=== PATIENT | female | born 1980 | race Caucasian/White ===

== ENCOUNTER → 2016-11-18 | Outpatient (CLI) | payer BC ==
[~2016-11-18] MED LIST: SODIUM CHLORIDE 0.9% 250 ML in EMPTY BAG 1 BAG IV PRN; SODIUM CHLORIDE 0.9% 500 ML in EMPTY BAG 1 BAG IV PRN
[2016-11-18 10:13] VITALS: TEMP 98.5
[2016-11-18 10:45] VITALS: RESP 16
[2016-11-18 11:33] VITALS: BP 118/70; PULSE 79
== END | disposition home or self-care (01) ==
LOC: PROCWHC3 10:00
PROVIDERS: ATTEND Internal Medicine Gastroenterology
DX: K50.10 Crohn's disease of large intestine without complications (principal)
CPT/HCPCS: 96361; 96413; 96415; J1745

== ENCOUNTER → 2016-11-25 | Outpatient (CLI) | payer BC ==
[2016-11-25 15:41] LABS: Anion Gap 9 mmol/L; Blood Urea Nitrogen 11 mg/dL (7-17); Carbon Dioxide 28 mmol/L (22-30); Chloride 103 mmol/L (98-107); Glucose 107 mg/dL (74-99); Non-African American GFR(MDRD) >60 (>60 ml/min/1.73 sqM); Potassium 4.2 mmol/L (3.5-5.1); Sodium 140 mmol/L (137-145)
== END | disposition home or self-care (01) ==
LOC: LABPAT 14:48
PROVIDERS: ATTEND Obstetrics & Gynecology
DX: Z01.812 Encounter for preprocedural laboratory examination (principal); N94.6 Dysmenorrhea, unspecified; N92.0 Excessive and frequent menstruation with regular cycle
CPT/HCPCS: 80051; 82565; 82947; 84520; 86850; 86900; 86901; 87086

== ENCOUNTER 2016-12-02 07:37 | Observation (INO) | payer BC ==
[2016-11-24 12:27] VITALS: BMI 33.0
[~2016-12-02 07:37] MED LIST changes: +DEXAMETHASONE SOD PHOSPHATE 10 MG/ML 1 ML VIAL IV ONE; +HYDROmorphone 1 MG/ML 1 ML SYRINGE IVP PRN; +LACTATED RINGERS 1,000 ML IV SCH; +MIDAZOLAM 2 MG/2 ML VIAL IV PRN; +ONDANSETRON 4 MG/2 ML VIAL IVP ONE; +SCOPOLAMINE 1.5MG/72HR PATCH TRANSDERM ONE; -SODIUM CHLORIDE 0.9% 250 ML in EMPTY BAG 1 BAG IV PRN; -SODIUM CHLORIDE 0.9% 500 ML in EMPTY BAG 1 BAG IV PRN; +ceFAZolin 2 GM in SODIUM CHLORIDE 0.9% 100 ML IVPB ONE
[2016-12-02] MEDS ORDERED: LIDOCAINE 1% 20 ML VIAL (10MG/ML) FOR IV START SQ ONE (08:02)
[2016-12-02 08:25] LABS: Glucose,Whole Blood 86 mg/dL (75-99)
[2016-12-02] MEDS ORDERED: fentaNYL (PF) 50 MCG/ML 2 ML AMP ONE (09:01)
[2016-12-02] MEDS ORDERED: MIDAZOLAM 2 MG/2 ML VIAL ONE (09:01)
[2016-12-02] MEDS ORDERED: MORPHINE SULFATE (PF) 0.3 MG/0.3 ML SYR ONE (09:01)
[2016-12-02] MEDS ORDERED: KETOROLAC 30 MG/ML 1 ML VIAL ONE (09:01)
[2016-12-02] MEDS ORDERED: PROPOFOL 10 MG/ML 20 ML VIAL IV ONE (09:01)
[2016-12-02] MEDS ORDERED: NALOXONE 0.4 MG/ML 1 ML VIAL IV PRN (09:23)
[2016-12-02] MEDS ORDERED: NALBUPHINE 10 MG/ML AMPUL IV PRN (09:23)
[2016-12-02] MEDS ORDERED: MORPHINE SULFATE 4 MG/ML SYRINGE IVP PRN (09:23)
[2016-12-02] MEDS ORDERED: ONDANSETRON 4 MG/2 ML VIAL IVP PRN ×2 (09:23→10:01)
[2016-12-02] MEDS ORDERED: BACITRACIN 500 UNIT/GM OINT 28.4 GM TUBE TOPICAL ONE (09:28)
[2016-12-02] MEDS ORDERED: VASOPRESSIN 20 UNIT/ML 1 ML VIAL SQ ONE (09:28)
[2016-12-02] MEDS ORDERED: LACTATED RINGERS 1,000 ML IV ONE (09:36)
[2016-12-02] MEDS ORDERED: ZOLPIDEM 5 MG TAB PO PRN (10:01)
[2016-12-02] MEDS ORDERED: IBUPROFEN 600 MG TAB PO PRN (10:01)
[2016-12-02] MEDS ORDERED: Acetaminophen-Codeine 300-30mg TAB PO PRN (10:01)
[2016-12-02] MEDS ORDERED: ACETAMINOPHEN IV (For NPO) 1,000 MG in EMPTY BAG 1 BAG IVPB ONE (10:01)
[2016-12-02] MEDS ORDERED: SIMETHICONE 80 MG CHEWABLE PO PRN (10:01)
[2016-12-02] MEDS ORDERED: METOCLOPRAMIDE 5 MG/ML 2 ML VIAL IVP PRN (10:01)
[2016-12-02] MEDS ORDERED: KETOROLAC 30 MG/ML 1 ML VIAL IVP PRN (10:01)
[2016-12-02] MEDS ORDERED: diphenhydrAMINE 50 MG/ML 1 ML VIAL IVP PRN (10:01)
--- NOTE | 2016-12-02 10:01 | P.OP ---
Date of Procedure: 12/02/16 Preoperative Diagnosis: Severe dysmenorrhea, polymenorrhea, large intrauterine septum Postoperative Diagnosis: Normal-appearing ovaries bilaterally Procedure(s) Performed: Vaginal hysterectomy Anesthesia: spinal Surgeon: Zahira Palacio Linux Admin Engineer #1: Ivette Stallworth Estimated Blood Loss (ml): 25 IV fluids (ml): 1,000 Urine output (ml): 250 Pathology: other (Cervix and uterus) Condition: stable Disposition: PACU Description of Procedure: Patient is brought to the operating suite where a spinal with Duramorph is given per Dr. hCew. She's placed in the dorsal lithotomy position. The cervix vagina perineum and lower abdomen are all prepped and draped in the usual sterile fashion. Antibiotics were given. Urine hCG is negative. The full timeout is performed to assure proper patient and procedural identification. Bladder is drained for approximately 250 mL of clear yellow urine. Weighted speculum was placed into the vagina. Anterior lip of the cervix is grasped with a double-tooth tenaculum. Cervix is injected circumferentially with a dilute Pitressin solution, 10 mL total used. A curyung blade scalpel is used and the mucosa is incised with V like positioning in the posterior aspect. A sponge rolled finger is used to sweep the mucosa from the underlying fascial plane. Peritoneum is entered at 6:00 and suture tied with 2- 0 Vicryl, the large billed speculum was then placed into the peritoneal cavity. Excellent to the case. At all times the bladder swept well from the operative field to avoid bladder and/or ureteral injury. The right uterosacral cardinal ligament complex is identified, clamped and held laterally with a 0 Vicryl suture. The same procedure is carried out on the contralateral uterosacral cardinal ligament complex. Uterine vasculature is skeletonized, clamped cut and suture ligated bilaterally. 2 additional pedicles are taken superior to the vessels. Anterior peritoneum was entered. The uterus is "walked out" posteriorly. The uterus is removed with Astrid clamps across the final pedicles. The pedicles are tied with 0 Vicryl, flashed, retied for excellent hemostasis. Bilateral ovaries are inspected with a sponge stick and noted to be within normal limits to inspection, and therefore left in situ per the patient's wishes. The 2-0 Vicryl suture at 6:00 is then brought around in a pursestring fashion to close the peritoneum. The held uterosacral cardinal ligament complex cc are taken across to incorporate the opposite complex as well as the mucosa. The vaginal cuff is closed with several additional [id number] sutures. The vaginal cuff is clean and dry. Rosenthal catheter is reintroduced, urine is clear. All sponge needle and enhancement counts are correct at the end of this procedure. Patient is brought back to the recovery room in very good condition with stable vital signs including a blood pressure of 101/55, pulse 81. Competitions: None
[2016-12-02] MEDS: diphenhydrAMINE 50 MG/ML 1 ML VIAL IVP PRN ×2 (10:23→20:14)
[2016-12-02] MEDS: KETOROLAC 30 MG/ML 1 ML VIAL IVP PRN ×3 (11:44→23:37)
[2016-12-02] MEDS: SENNOSIDES-DOCUSATE SODIUM 1 EACH TAB PO SCH (20:00)
--- NOTE | 2016-12-03 08:08 | P.DS ---
Providers Date of admission: 12/03/16 00:53 Expected date of discharge: 12/03/16 Attending physician: Zahira Palacio Primary care physician: [facility] Course: This is a 36-year-old white female 2 para 2002 status post tubal ligation who presented with a long-standing history of dysmenorrhea and polymenorrhea. A large intrauterine septum was noted by another physician, making ablation of the endometrial cavity not possible. After thorough discussion she elected to proceed with vaginal hysterectomy. Please see my dictated history and physical for details. Patient was admitted and underwent vaginal hysterectomy without issue. Estimated blood loss recorded at 25 mL's. Ovaries appeared normal to inspection and therefore were left in situ per her wishes. Please see my dictated operative note for details. This morning the patient is doing very well. Rosenthal catheter as well as vaginal packing had been removed. She is voiding, and bleeding, passing flatus, and having minimal pain. Vaginal cough appears clean and dry on inspection of the perineal pad. Pain is well managed with ibuprofen products. Patient is being discharged home this morning in very good condition. She will follow-up with me in the office in 2 weeks. I have reminded her no intercourse , tampons or douching. She will use [id number] ibuprofen products, 200 mg pills, 3 every 6 hours as needed for pain. I have asked her to call me with any copious or bright red vaginal bleeding, with any difficulties with urination or bowel movements, with any pain not alleviated by [id number] products, or indeed with any concerns. Patient Condition at Discharge: Good Plan - Discharge Summary Discharge Medication List diphenhydrAMINE [Benadryl] 25 mg PO HS 03/11/16 [History] Multivitamins, Thera [Multivitamin] 1 tab PO DAILY 04/23/16 [History] Ferrous Sulfate [Feosol] 325 mg PO BID 07/02/16 [History] inFLIXimab [Remicade] 500 mg IVPB DIRECTED 07/02/16 [History] Follow up Appointment(s)/Referral(s): Zahira Palacio MD [STAFF PHYSICIAN] - 2 Weeks Patient Instructions/Handouts: *Surgery [facility] - Scopalamine Patch Instructions Discharge Disposition: HOME SELF-CARE
[2016-12-03] MEDS: KETOROLAC 30 MG/ML 1 ML VIAL IVP PRN (08:32)
--- NOTE | 2016-12-03 08:32 | P.PN ---
Progress Note - Text Date: 12/03/2016 Time: 708 The patient is status post, vaginal hysterectomy Vital signs stable VAS:0-10 Patient has no complaints of pain. The patient incurred some minimal itching yesterday, this itching is now subsiding. Pain meds to be managed by service.
[2016-12-03 08:41] VITALS: BP 129/69; PULSE 89; RESP 16; TEMP 98.3
[2016-12-03] MEDS ORDERED: ACETAMINOPHEN TAB 325 MG TAB PO PRN (10:03)
[2016-12-03] MEDS: SENNOSIDES-DOCUSATE SODIUM 1 EACH TAB PO SCH (10:21)
== END 2016-12-03 10:00 | disposition home or self-care (01) ==
LOC: OR 07:37 → 4FBP 10:05 → OR 12-03 00:53 → 4FBP 12-03 00:53
PROVIDERS: ADMIT Obstetrics & Gynecology; ATTEND Obstetrics & Gynecology
DX: N92.0 Excessive and frequent menstruation with regular cycle (principal); N94.6 Dysmenorrhea, unspecified; N72 Inflammatory disease of cervix uteri; N87.9 Dysplasia of cervix uteri, unspecified; D25.2 Subserosal leiomyoma of uterus
CPT/HCPCS: 81025; 86900; 86901; 86850; 88307; 58260; G0378; J2250; J1200; J1100; J0690; J2405; J2274; J3010; J1885 ×2; J0131; J2704; 96374

== ENCOUNTER → 2016-12-30 | Outpatient (CLI) | payer BC ==
[~2016-12-30] MED LIST changes: -DEXAMETHASONE SOD PHOSPHATE 10 MG/ML 1 ML VIAL IV ONE; -HYDROmorphone 1 MG/ML 1 ML SYRINGE IVP PRN; -LACTATED RINGERS 1,000 ML IV SCH; -MIDAZOLAM 2 MG/2 ML VIAL IV PRN; -ONDANSETRON 4 MG/2 ML VIAL IVP ONE; -SCOPOLAMINE 1.5MG/72HR PATCH TRANSDERM ONE; +SODIUM CHLORIDE 0.9% 250 ML in EMPTY BAG 1 BAG IV PRN; +SODIUM CHLORIDE 0.9% 500 ML in EMPTY BAG 1 BAG IV PRN; -ceFAZolin 2 GM in SODIUM CHLORIDE 0.9% 100 ML IVPB ONE
[2016-12-30 09:44] VITALS: TEMP 98.2
[2016-12-30 10:42] LABS: Basophils % (A) 1 %; CH 28.3; CHCM 32.3; Eosinophils # (A) 0.1 k/uL (0-0.7); Eosinophils % (A) 1 %; HCT 45.4 % (34.0-46.0); HDW 2.36; HGB 14.6 gm/dL (11.4-16.0); Luc # (Auto) 0.18; Luc % (Auto) 3; Lymphocytes # (A) 1.8 k/uL (1.0-4.8); Lymphocytes % (A) 26 %; MCH 28.3 pg (25.0-35.0); MCHC 32.2 g/dL (31.0-37.0); MCV 87.9 fL (80.0-100.0); Mean Platelet Volume 7.1; Monocytes # (A) 0.3 k/uL (0-1.0); Monocytes % (A) 4 %; Neutrophils # (A) 4.6 k/uL (1.3-7.7); Neutrophils % (A) 65 %; RBC 5.17 m/uL (3.80-5.40); RDW 13.3 % (11.5-15.5)
[2016-12-30 11:10] LABS: ALT 27 U/L (9-52); AST 25 U/L (14-36); Alkaline Phosphatase 62 U/L (38-126); Anion Gap 12 mmol/L; Blood Urea Nitrogen 10 mg/dL (7-17); Calcium 9.4 mg/dL (8.4-10.2); Carbon Dioxide 24 mmol/L (22-30); Chloride 105 mmol/L (98-107); Glucose 85 mg/dL (74-99); Non-African American GFR(MDRD) >60 (>60 ml/min/1.73 sqM); Potassium 4.5 mmol/L (3.5-5.1); Sodium 141 mmol/L (137-145); Total Bilirubin 0.6 mg/dL (0.2-1.3); Total Protein 7.6 g/dL (6.3-8.2)
[2016-12-30 11:39] VITALS: BP 118/75; PULSE 74; RESP 18
[2016-12-31 07:41] LABS: Mis test requested (Blood) Dilute Russel VVT
== END | disposition home or self-care (01) ==
LOC: PROCWHC3 09:14
PROVIDERS: ATTEND Internal Medicine Gastroenterology
DX: K50.10 Crohn's disease of large intestine without complications (principal); D68.62 Lupus anticoagulant syndrome; D50.9 Iron deficiency anemia, unspecified
CPT/HCPCS: 80053; 85025; 85730; 85613; 88342; 96361; 96413; 96415; J1745

== ENCOUNTER → 2017-02-03 | Outpatient (CLI) | payer BC ==
--- NOTE | 2017-02-04 07:36 | MM ---
Reason for exam: screening (asymptomatic). Baseline mammogram. Physical Findings: Nurse did not find any significant physical abnormalities on exam. MG 3D Screening Mammo W/Cad Bilateral CC and MLO view(s) were taken. The breast tissue is heterogeneously dense. This may lower the sensitivity of mammography. Finding #1: There is a 5 mm equal density (isodense), obscured oval mass in the upper quadrant of the left breast. Finding #2: There are typically benign calcifications. These results were verbally communicated with the patient and result sheet given to the patient on 02/03/17. ASSESSMENT: Incomplete: need additional imaging evaluation, BI-RAD 0 RECOMMENDATION: Ultrasound of the left breast.
--- NOTE | 2017-02-04 07:37 | USB ---
Reason for exam: additional evaluation requested from abnormal screening. US Breast Workup Limited LT Left breast ultrasound demonstrates no cystic or solid lesion seen. These results were verbally communicated with the patient and result sheet given to the patient on 02/03/17. ASSESSMENT: Negative, BI-RAD 1 RECOMMENDATION: Routine screening mammogram of both breasts at age 38.
== END | disposition home or self-care (01) ==
LOC: RADMAMWWP 15:01
PROVIDERS: ATTEND Obstetrics & Gynecology
DX: Z12.31 Encounter for screening mammogram for malignant neoplasm of breast (principal)
CPT/HCPCS: 77063; 76642; G0202

== ENCOUNTER → 2017-02-10 | Outpatient (CLI) | payer BC ==
[2017-02-10 09:12] VITALS: RESP 16
[2017-02-10 09:52] LABS: Basophils % (A) 1 %; CH 28.8; CHCM 32.8; Eosinophils # (A) 0.1 k/uL (0-0.7); Eosinophils % (A) 1 %; HCT 43.5 % (34.0-46.0); HDW 2.34; HGB 14.1 gm/dL (11.4-16.0); Luc # (Auto) 0.12; Luc % (Auto) 2; Lymphocytes # (A) 1.7 k/uL (1.0-4.8); Lymphocytes % (A) 23 %; MCH 28.5 pg (25.0-35.0); MCHC 32.4 g/dL (31.0-37.0); Mean Platelet Volume 7.2; Monocytes # (A) 0.3 k/uL (0-1.0); Monocytes % (A) 4 %; Neutrophils # (A) 5.2 k/uL (1.3-7.7); Neutrophils % (A) 70 %; RBC 4.94 m/uL (3.80-5.40); RDW 13.5 % (11.5-15.5); WBC 7.4 k/uL (3.8-10.6); WBC (Perox) 7.35
[2017-02-10 10:36] LABS: ALT 30 U/L (9-52); AST 31 U/L (14-36); Alkaline Phosphatase 53 U/L (38-126); Anion Gap 9 mmol/L; Blood Urea Nitrogen 10 mg/dL (7-17); Calcium 9.5 mg/dL (8.4-10.2); Carbon Dioxide 24 mmol/L (22-30); Chloride 107 mmol/L (98-107); Glucose 109 mg/dL (74-99); Non-African American GFR(MDRD) >60 (>60 ml/min/1.73 sqM); Potassium 4.4 mmol/L (3.5-5.1); Sodium 140 mmol/L (137-145); Total Bilirubin 0.6 mg/dL (0.2-1.3); Total Protein 7.1 g/dL (6.3-8.2)
[2017-02-10 11:15] VITALS: TEMP 98.2
[2017-02-10 11:18] VITALS: BP 114/76; PULSE 76
== END | disposition home or self-care (01) ==
LOC: PROCWHC3 09:05
PROVIDERS: ATTEND Internal Medicine Gastroenterology
DX: K50.10 Crohn's disease of large intestine without complications (principal)
CPT/HCPCS: 80053; 85025; 96361; 96413; 96415; J1745

== ENCOUNTER → 2017-03-24 | Outpatient (CLI) | payer BC ==
[2017-03-24 09:18] VITALS: RESP 16; TEMP 98.4
[2017-03-24 10:00] LABS: Basophils # (A) 0.1 k/uL (0-0.2); Basophils % (A) 1 %; CH 29.5; CHCM 33.7; Eosinophils # (A) 0.1 k/uL (0-0.7); Eosinophils % (A) 2 %; HCT 43.1 % (34.0-46.0); HGB 14.4 gm/dL (11.4-16.0); Luc # (Auto) 0.12; Luc % (Auto) 2; Lymphocytes # (A) 1.8 k/uL (1.0-4.8); Lymphocytes % (A) 26 %; MCH 29.3 pg (25.0-35.0); MCHC 33.4 g/dL (31.0-37.0); MCV 87.7 fL (80.0-100.0); Mean Platelet Volume 7.6; Monocytes # (A) 0.4 k/uL (0-1.0); Monocytes % (A) 5 %; Neutrophils # (A) 4.2 k/uL (1.3-7.7); Neutrophils % (A) 64 %; RBC 4.91 m/uL (3.80-5.40); RDW 13.3 % (11.5-15.5); WBC 6.6 k/uL (3.8-10.6); WBC (Perox) 6.49
[2017-03-24 10:52] VITALS: BP 131/78; PULSE 71
[2017-03-24 12:10] LABS: ALT 41 U/L (9-52); AST 30 U/L (14-36); Alkaline Phosphatase 65 U/L (38-126); Anion Gap 9 mmol/L; Blood Urea Nitrogen 14 mg/dL (7-17); Calcium 9.4 mg/dL (8.4-10.2); Carbon Dioxide 25 mmol/L (22-30); Chloride 106 mmol/L (98-107); Glucose 84 mg/dL (74-99); Non-African American GFR(MDRD) >60 (>60 ml/min/1.73 sqM); Potassium 4.4 mmol/L (3.5-5.1); Sodium 140 mmol/L (137-145); Total Bilirubin 0.5 mg/dL (0.2-1.3); Total Protein 7.6 g/dL (6.3-8.2)
== END | disposition home or self-care (01) ==
LOC: PROCWHC3 09:00
PROVIDERS: ATTEND Internal Medicine Gastroenterology
DX: K50.10 Crohn's disease of large intestine without complications (principal)
CPT/HCPCS: 80053; 85025; 96413; 96415; 36415; J1745

== ENCOUNTER 2017-04-20 17:19 | Emergency (ER) | payer BC ==
[2017-04-20 17:45] VITALS: BP 125/80; PULSE 67; RESP 20; TEMP 98.5
--- NOTE | 2017-04-20 18:23 | ED ---
Extremity Problem HPI - General Chief complaint: Extremity Problem,Nontraumatic Stated complaint: Leg Pain Time Seen by Provider: 04/20/17 18:10 Source: patient, RN notes reviewed Mode of arrival: ambulatory Limitations: no limitations - History of Present Illness Initial comments: This is a 36-year-old female presents emergency Department chief complaint right calf pain. She states she's had intermittent pain and cramping over the last 1-2 weeks. Patient states she is concern is she has been told that she is a high-risk for blood clot secondary to Remicade. Patient denies any chest pain , shortness breath, headache or dizziness. She states her right leg is slightly swollen but denies any redness or any trauma. Patient states when she walks she has increased pain. - Related Data Home Medications Medication Instructions Recorded Confirmed diphenhydrAMINE [Benadryl] 25 mg PO HS 03/11/16 04/20/17 Multivitamins, Thera [Multivitamin 1 tab PO DAILY 04/23/16 04/20/17 (formulary)] Ferrous Sulfate [Feosol] 325 mg PO DAILY 07/02/16 04/20/17 inFLIXimab [Remicade] 500 mg IVPB Q42D 07/02/16 04/20/17 Allergies Allergy/AdvReac Type Severity Reaction Status Date / Time latex Allergy Rash/Hives Verified 04/20/17 18:38 Review of Systems ROS Statement: Those systems with pertinent positive or pertinent negative responses have been documented in the HPI. ROS Other: All systems not noted in ROS Statement are negative. Past Medical History Additional Past Medical History / Comment(s): chrohn's disease/ hypogylcemia gestational dm History of Any Multi-Drug Resistant Organisms: None Reported Past Surgical History: Hysterectomy, Tubal Ligation Additional Past Surgical History / Comment(s): colonoscopy Past Anesthesia/Blood Transfusion Reactions: No Reported Reaction Additional Past Anesthesia/Blood Transfusion Reaction / Comment(s): took a while to come out Past Psychological History: No Psychological Hx Reported Smoking Status: Never smoker Past Alcohol Use History: None Reported Past Drug Use History: None Reported - Past Family History Mother Family Medical History: No Reported History General Exam Limitations: no limitations General appearance: alert, in no apparent distress Respiratory exam: Present: normal lung sounds bilaterally. Absent: respiratory distress, wheezes, rales, rhonchi, stridor Cardiovascular Exam: Present: regular rate, normal rhythm, normal heart sounds. Absent: systolic murmur, diastolic murmur, rubs, gallop, clicks Extremities exam: Present: other (Right calf there is tenderness with palpation over the mid calf with no erythema. There is mild swelling pedal pulses are equal bilaterally there is equal color and warmth of the lower extremities shows full range of motion of her ankle and knee) Neurological exam: Present: reflexes normal. Absent: motor sensory deficit Skin exam: Present: warm, dry, intact, normal color. Absent: rash Course Vital Signs 04/20/17 17:42 Temperature 98.5 F Pulse Rate 67 Respiratory 20 Rate Blood Pressure 125/80 O2 Sat by Pulse 98 Oximetry Medical Decision Making - Medical Decision Making 28-year-old female presented for right leg pain. There is no acute DVT. Patient we discharged at this time. Disposition Clinical Impression: Right calf pain Disposition: HOME SELF-CARE Condition: Stable Instructions: Leg Pain (ED) Additional Instructions: Please return to the Emergency Department if symptoms worsen or any other concerns. Referrals: Kayleen Ferrer DO [Primary Care Provider] - 1-2 days Time of Disposition: 19:52
--- NOTE | 2017-04-20 19:41 | US ---
EXAMINATION TYPE: US venous doppler duplex LE RT DATE OF EXAM: 04/20/2017 7:00 PM COMPARISON: NONE CLINICAL HISTORY: Pain. SIDE PERFORMED: Right TECHNIQUE: The lower extremity deep venous system is examined utilizing real time linear array sonog darren with graded compression, doppler sonography and color-flow sonography. VESSELS IMAGED: External Iliac Vein (EIV) Common Femoral Vein Deep Femoral Vein Greater Saphenous Vein * Femoral Vein Popliteal Vein Small Saphenous Vein * Proximal Calf Veins (* superficial vessels) Right Leg: Negative for DVT IMPRESSION: NEGATIVE FOR DVT, RIGHT LOWER EXTREMITY VENOUS DOPPLER ULTRASOUND.
== END 2017-04-20 20:08 | disposition home or self-care (01) ==
LOC: EC 17:19
DX: M79.661 Pain in right lower leg (principal); M79.89 Other specified soft tissue disorders; Z79.899 Other long term (current) drug therapy; Z91.040 Latex allergy status
CPT/HCPCS: 99283

== ENCOUNTER → 2017-05-05 | Outpatient (CLI) | payer BC ==
[2017-05-05 09:22] VITALS: TEMP 98.4
[2017-05-05 10:22] LABS: Basophils % (A) 0 %; CH 29.1; CHCM 33.2; Eosinophils # (A) 0.1 k/uL (0-0.7); Eosinophils % (A) 1 %; HCT 44.2 % (34.0-46.0); HDW 2.39; HGB 15.7 gm/dL (11.4-16.0); Luc # (Auto) 0.15; Luc % (Auto) 2; Lymphocytes # (A) 1.8 k/uL (1.0-4.8); Lymphocytes % (A) 25 %; MCH 31.2 pg (25.0-35.0); MCHC 35.4 g/dL (31.0-37.0); MCV 88.2 fL (80.0-100.0); Mean Platelet Volume 7.7; Monocytes # (A) 0.2 k/uL (0-1.0); Monocytes % (A) 3 %; Neutrophils # (A) 4.9 k/uL (1.3-7.7); Neutrophils % (A) 69 %; RBC 5.01 m/uL (3.80-5.40); RDW 12.8 % (11.5-15.5); WBC 7.1 k/uL (3.8-10.6); WBC (Perox) 7.17
[2017-05-05 10:29] LABS: ALT 32 U/L (9-52); AST 24 U/L (14-36); Alkaline Phosphatase 65 U/L (38-126); Anion Gap 10 mmol/L; Blood Urea Nitrogen 10 mg/dL (7-17); Calcium 9.1 mg/dL (8.4-10.2); Carbon Dioxide 21 mmol/L (22-30); Chloride 109 mmol/L (98-107); Glucose 118 mg/dL (74-99); Non-African American GFR(MDRD) >60 (>60 ml/min/1.73 sqM); Potassium 4.4 mmol/L (3.5-5.1); Sodium 140 mmol/L (137-145); Total Bilirubin 0.7 mg/dL (0.2-1.3); Total Protein 7.2 g/dL (6.3-8.2)
[2017-05-05 10:59] VITALS: BP 103/64; PULSE 65; RESP 12
== END ==
LOC: PROCWHC3 08:57
PROVIDERS: ATTEND Internal Medicine Gastroenterology
DX: Z51.11 Encounter for antineoplastic chemotherapy (principal); K50.10 Crohn's disease of large intestine without complications
CPT/HCPCS: 80053; 85025; 96413; 96415; 36415; J1745

== ENCOUNTER → 2017-06-16 | Outpatient (CLI) | payer BC ==
[2017-06-16 09:19] VITALS: TEMP 98.4
[2017-06-16 09:31] LABS: CH 29.1; CHCM 32.8; HCT 43.5 % (34.0-46.0); HDW 2.37; HGB 14.5 gm/dL (11.4-16.0); MCH 29.6 pg (25.0-35.0); MCHC 33.2 g/dL (31.0-37.0); MCV 89.2 fL (80.0-100.0); Mean Platelet Volume 7.1; RBC 4.88 m/uL (3.80-5.40); RDW 12.5 % (11.5-15.5); WBC 7.9 k/uL (3.8-10.6)
[2017-06-16 10:14] LABS: ALT 42 U/L (9-52); AST 29 U/L (14-36); Alkaline Phosphatase 58 U/L (38-126); Anion Gap 8 mmol/L; Blood Urea Nitrogen 8 mg/dL (7-17); Carbon Dioxide 22 mmol/L (22-30); Chloride 108 mmol/L (98-107); Glucose 82 mg/dL (74-99); Non-African American GFR(MDRD) >60 (>60 ml/min/1.73 sqM); Potassium 4.7 mmol/L (3.5-5.1); Sodium 138 mmol/L (137-145); Total Bilirubin 0.7 mg/dL (0.2-1.3); Total Protein 7.1 g/dL (6.3-8.2)
[2017-06-16 10:22] VITALS: RESP 18
[2017-06-16 10:49] VITALS: BP 101/46; PULSE 67
== END | disposition home or self-care (01) ==
LOC: PROCWHC3 09:02
PROVIDERS: ATTEND Internal Medicine Gastroenterology
DX: K50.10 Crohn's disease of large intestine without complications (principal)
CPT/HCPCS: 80053; 85027; 96413; 96415; 36415; J1745

== ENCOUNTER → 2017-07-28 | Outpatient (CLI) | payer BC ==
[~2017-07-28] MED LIST changes: -SODIUM CHLORIDE 0.9% 250 ML in EMPTY BAG 1 BAG IV PRN
[2017-07-28 09:54] VITALS: RESP 16; TEMP 98.2
[2017-07-28 12:14] VITALS: BP 130/94; PULSE 82
== END | disposition home or self-care (01) ==
LOC: PROCWHC3 09:23
PROVIDERS: ATTEND Internal Medicine Gastroenterology
DX: K50.10 Crohn's disease of large intestine without complications (principal)
CPT/HCPCS: 96413; 96415; J1745

== ENCOUNTER → 2017-09-15 | Outpatient (CLI) | payer BC ==
[2017-09-15 09:46] VITALS: RESP 18; TEMP 98.4
[2017-09-15 11:01] VITALS: BP 118/70; PULSE 69
== END | disposition home or self-care (01) ==
LOC: PROCWHC3 09:23
PROVIDERS: ATTEND Internal Medicine Gastroenterology
DX: Z51.11 Encounter for antineoplastic chemotherapy (principal); K50.10 Crohn's disease of large intestine without complications
CPT/HCPCS: 96413; 96415; J1745

== ENCOUNTER → 2017-11-13 | Outpatient (CLI) | payer BC ==
[2017-11-13 12:36] VITALS: RESP 16; TEMP 99.1
[2017-11-13 13:36] LABS: Basophils % (A) 0 %; Eosinophils # (A) 0.1 k/uL (0-0.7); Eosinophils % (A) 1 %; HCT 48.2 % (34.0-46.0); HGB 15.2 gm/dL (11.4-16.0); Lymphocytes # (A) 2.3 k/uL (1.0-4.8); Lymphocytes % (A) 27 %; MCH 28.7 pg (25.0-35.0); MCHC 31.5 g/dL (31.0-37.0); MCV 91.1 fL (80.0-100.0); Mean Platelet Volume 8.1; Monocytes # (A) 0.4 k/uL (0-1.0); Monocytes % (A) 4 %; Neutrophils # (A) 5.5 k/uL (1.3-7.7); Neutrophils % (A) 65 %; Platelet Count 281 k/uL (150-450); RBC 5.29 m/uL (3.80-5.40); RDW 13.7 % (11.5-15.5); WBC 8.4 k/uL (3.8-10.6)
[2017-11-13 13:40] LABS: ALT 39 U/L (9-52); AST 36 U/L (14-36); Albumin 4.4 g/dL (3.5-5.0); Alkaline Phosphatase 52 U/L (38-126); Anion Gap 9 mmol/L; Blood Urea Nitrogen 12 mg/dL (7-17); Calcium 9.8 mg/dL (8.4-10.2); Carbon Dioxide 26 mmol/L (22-30); Chloride 104 mmol/L (98-107); Glucose 108 mg/dL (74-99); Sodium 139 mmol/L (137-145); Total Bilirubin 0.6 mg/dL (0.2-1.3); Total Protein 7.8 g/dL (6.3-8.2)
[2017-11-13 13:56] LABS: Potassium 4.9 mmol/L (3.5-5.1)
[2017-11-13 14:19] VITALS: BP 129/79; PULSE 77
[2017-11-13 18:57] LABS: Iron Saturation 19.73 (12.00-45.00)
== END | disposition home or self-care (01) ==
LOC: PROCWHC3 12:18
PROVIDERS: ATTEND Internal Medicine Gastroenterology
DX: K50.10 Crohn's disease of large intestine without complications (principal)
CPT/HCPCS: 80053; 83540; 83550; 85025; 96413; 96415; J1745

== ENCOUNTER → 2018-01-14 | Outpatient (CLI) | payer BC ==
[~2018-01-14] MED LIST changes: +ACETAMINOPHEN TAB 500 MG TAB PO ONE; +INFLIXIMAB-DYYB 500 MG in SODIUM CHLORIDE 0.9% 250 ML IV ONE; +LORATADINE 10 MG TAB PO ONE
[2018-01-14 11:31] VITALS: TEMP 98.3
[2018-01-14] MEDS: INFLIXIMAB-DYYB 500 MG in SODIUM CHLORIDE 0.9% 250 ML IV ONE ×2 (11:37→11:39)
[2018-01-14 12:08] LABS: Albumin 4.1 g/dL (3.5-5.0); Anion Gap 11 mmol/L; Calcium 9.6 mg/dL (8.4-10.2); Carbon Dioxide 22 mmol/L (22-30); Chloride 107 mmol/L (98-107); Glucose 115 mg/dL (74-99); Sodium 140 mmol/L (137-145); Total Bilirubin 0.5 mg/dL (0.2-1.3); Total Protein 7.5 g/dL (6.3-8.2)
[2018-01-14 12:12] LABS: Potassium 4.7 mmol/L (3.5-5.1)
[2018-01-14 12:13] LABS: ALT 33 U/L (9-52); AST 31 U/L (14-36); Alkaline Phosphatase 71 U/L (38-126); Blood Urea Nitrogen 12 mg/dL (7-17)
[2018-01-14 12:20] LABS: Basophils % (A) 0 %; Eosinophils # (A) 0.1 k/uL (0-0.7); Eosinophils % (A) 1 %; HCT 46.5 % (34.0-46.0); HGB 15.2 gm/dL (11.4-16.0); Lymphocytes # (A) 2.2 k/uL (1.0-4.8); Lymphocytes % (A) 25 %; MCH 28.6 pg (25.0-35.0); MCHC 32.7 g/dL (31.0-37.0); MCV 87.3 fL (80.0-100.0); Mean Platelet Volume 7.7; Monocytes # (A) 0.3 k/uL (0-1.0); Monocytes % (A) 3 %; Neutrophils # (A) 6.2 k/uL (1.3-7.7); Neutrophils % (A) 69 %; Platelet Count 289 k/uL (150-450); RBC 5.32 m/uL (3.80-5.40); RDW 12.8 % (11.5-15.5); WBC 8.9 k/uL (3.8-10.6)
[2018-01-14 12:47] VITALS: BP 112/58; PULSE 78; RESP 18
[2018-01-14 19:15] LABS: Iron Saturation 23.2 (12.00-45.00)
== END | disposition home or self-care (01) ==
LOC: PROCWHC3 10:54
PROVIDERS: ATTEND Internal Medicine Gastroenterology
DX: K50.10 Crohn's disease of large intestine without complications (principal); D50.9 Iron deficiency anemia, unspecified
CPT/HCPCS: 80053; 82728; 83540; 83550; 85025; 96413; 96415; 36415; Q5102

== ENCOUNTER → 2018-02-25 | Outpatient (CLI) | payer BC ==
[2018-02-25 09:33] VITALS: TEMP 98.6
[2018-02-25 10:19] LABS: Basophils % (A) 0 %; Eosinophils # (A) 0.2 k/uL (0-0.7); Eosinophils % (A) 2 %; HCT 43.1 % (34.0-46.0); HGB 14.4 gm/dL (11.4-16.0); Lymphocytes # (A) 2.1 k/uL (1.0-4.8); Lymphocytes % (A) 29 %; MCH 28.8 pg (25.0-35.0); MCHC 33.4 g/dL (31.0-37.0); MCV 86.2 fL (80.0-100.0); Mean Platelet Volume 7.7; Monocytes # (A) 0.6 k/uL (0-1.0); Monocytes % (A) 8 %; Neutrophils # (A) 4.3 k/uL (1.3-7.7); Neutrophils % (A) 59 %; Platelet Count 271 k/uL (150-450); WBC 7.3 k/uL (3.8-10.6)
[2018-02-25 10:25] LABS: ALT 46 U/L (9-52); AST 43 U/L (14-36); Albumin 4.2 g/dL (3.5-5.0); Alkaline Phosphatase 51 U/L (38-126); Anion Gap 12 mmol/L; Blood Urea Nitrogen 12 mg/dL (7-17); Calcium 9.6 mg/dL (8.4-10.2); Carbon Dioxide 24 mmol/L (22-30); Chloride 105 mmol/L (98-107); Glucose 77 mg/dL (74-99); Sodium 141 mmol/L (137-145); Total Bilirubin 0.7 mg/dL (0.2-1.3); Total Protein 7.3 g/dL (6.3-8.2)
[2018-02-25 11:23] VITALS: BP 113/65; PULSE 76; RESP 18
== END | disposition home or self-care (01) ==
LOC: PROCWHC3 09:14
PROVIDERS: ATTEND Internal Medicine Gastroenterology
DX: K50.10 Crohn's disease of large intestine without complications (principal)
CPT/HCPCS: 80053; 85025; 96413; 96415; 36415; Q5103

== ENCOUNTER → 2018-04-08 | Outpatient (CLI) | payer BC ==
[~2018-04-08] MED LIST changes: +INFLIXIMAB-DYYB 500 MG in SODIUM CHLORIDE 0.9% 250 ML IV NR; -INFLIXIMAB-DYYB 500 MG in SODIUM CHLORIDE 0.9% 250 ML IV ONE
[2018-04-08 09:44] VITALS: TEMP 98.7
[2018-04-08 10:07] LABS: Basophils % (A) 1 %; Eosinophils # (A) 0.1 k/uL (0-0.7); Eosinophils % (A) 2 %; HCT 47.7 % (34.0-46.0); HGB 15.7 gm/dL (11.4-16.0); Lymphocytes # (A) 2.1 k/uL (1.0-4.8); Lymphocytes % (A) 26 %; MCH 29.1 pg (25.0-35.0); MCV 88.3 fL (80.0-100.0); Mean Platelet Volume 7.5; Monocytes # (A) 0.4 k/uL (0-1.0); Monocytes % (A) 5 %; Neutrophils # (A) 5.3 k/uL (1.3-7.7); Neutrophils % (A) 66 %; Platelet Count 269 k/uL (150-450); RDW 13.5 % (11.5-15.5); WBC 8.1 k/uL (3.8-10.6)
[2018-04-08 10:19] LABS: ALT 63 U/L (9-52); AST 45 U/L (14-36); Albumin 4.3 g/dL (3.5-5.0); Alkaline Phosphatase 50 U/L (38-126); Anion Gap 12 mmol/L; Blood Urea Nitrogen 12 mg/dL (7-17); Calcium 9.7 mg/dL (8.4-10.2); Carbon Dioxide 23 mmol/L (22-30); Chloride 106 mmol/L (98-107); Glucose 96 mg/dL (74-99); Sodium 141 mmol/L (137-145); Total Bilirubin 0.6 mg/dL (0.2-1.3); Total Protein 7.3 g/dL (6.3-8.2)
[2018-04-08 10:28] LABS: Potassium 4.8 mmol/L (3.5-5.1)
[2018-04-08 11:08] VITALS: PULSE 76
[2018-04-08 11:38] VITALS: BP 124/71; RESP 16
== END | disposition home or self-care (01) ==
LOC: PROCWHC3 09:24
PROVIDERS: ATTEND Internal Medicine Gastroenterology
DX: K50.10 Crohn's disease of large intestine without complications (principal)
CPT/HCPCS: 80053; 85025; 96413; 96415; Q5103

== ENCOUNTER → 2018-05-24 | Outpatient (CLI) | payer BC ==
[~2018-05-24] MED LIST changes: +ACETAMINOPHEN TAB 500 MG TAB PO NR; -ACETAMINOPHEN TAB 500 MG TAB PO ONE; +LORATADINE 10 MG TAB PO NR; -LORATADINE 10 MG TAB PO ONE
[2018-05-24 10:18] VITALS: TEMP 98
[2018-05-24 10:57] VITALS: RESP 14
[2018-05-24 10:57] LABS: HGB 15.6 gm/dL (11.4-16.0); MCH 29.5 pg (25.0-35.0); MCHC 33.1 g/dL (31.0-37.0); MCV 89.1 fL (80.0-100.0); Mean Platelet Volume 7.2; Platelet Count 289 k/uL (150-450); RBC 5.27 m/uL (3.80-5.40); WBC 9.3 k/uL (3.8-10.6)
[2018-05-24 11:06] LABS: ALT 55 U/L (9-52); AST 30 U/L (14-36); Alkaline Phosphatase 58 U/L (38-126); Anion Gap 6 mmol/L; Blood Urea Nitrogen 13 mg/dL (7-17); Calcium 9.8 mg/dL (8.4-10.2); Carbon Dioxide 29 mmol/L (22-30); Chloride 107 mmol/L (98-107); Glucose 79 mg/dL (74-99); Potassium 4.6 mmol/L (3.5-5.1); Sodium 142 mmol/L (137-145); Total Bilirubin 0.3 mg/dL (0.2-1.3); Total Protein 6.9 g/dL (6.3-8.2)
[2018-05-24 11:31] VITALS: BP 105/72; PULSE 78
== END | disposition home or self-care (01) ==
LOC: PROCWHC3 10:07
PROVIDERS: ATTEND Internal Medicine Gastroenterology
DX: K50.10 Crohn's disease of large intestine without complications (principal)
CPT/HCPCS: 80053; 85027; 96413; 96415; Q5103

== ENCOUNTER → 2018-06-16 | Outpatient (CLI) | payer BC ==
--- NOTE | 2018-06-24 10:32 | MM ---
Reason for exam: screening (asymptomatic). Last mammogram was performed 1 year and 4 months ago. History: Family history of breast cancer in mother. Took other hormone for 2 months. MG 3D Screening Mammo W/Cad Bilateral CC and MLO view(s) were taken. Prior study comparison: February 03, 2017, bilateral MG 3d screening mammo w/cad. The breast tissue is heterogeneously dense. This may lower the sensitivity of mammography. No suspicious abnormality. No significant new findings since prior exams. ASSESSMENT: Negative, BI-RAD 1 RECOMMENDATION: Routine screening mammogram of both breasts in 1 year.
== END | disposition home or self-care (01) ==
LOC: RADMAMWWP 11:49
PROVIDERS: ATTEND Obstetrics & Gynecology
DX: Z12.31 Encounter for screening mammogram for malignant neoplasm of breast (principal)
CPT/HCPCS: 77063; 77067

== ENCOUNTER → 2018-07-05 | Outpatient (CLI) | payer BC ==
[~2018-07-05] MED LIST changes: -ACETAMINOPHEN TAB 500 MG TAB PO NR; -LORATADINE 10 MG TAB PO NR
[2018-07-05 10:39] LABS: Basophils % (A) 0 %; Eosinophils # (A) 0.2 k/uL (0-0.7); Eosinophils % (A) 2 %; HCT 47.1 % (34.0-46.0); HGB 15.7 gm/dL (11.4-16.0); Lymphocytes % (A) 26 %; MCH 29.4 pg (25.0-35.0); MCHC 33.4 g/dL (31.0-37.0); Mean Platelet Volume 7.5; Monocytes # (A) 0.5 k/uL (0-1.0); Monocytes % (A) 7 %; Neutrophils # (A) 4.9 k/uL (1.3-7.7); Neutrophils % (A) 63 %; Platelet Count 265 k/uL (150-450); RBC 5.36 m/uL (3.80-5.40); RDW 12.8 % (11.5-15.5); WBC 7.7 k/uL (3.8-10.6)
[2018-07-05 10:54] VITALS: TEMP 98.2
[2018-07-05 10:56] LABS: ALT 60 U/L (9-52); AST 37 U/L (14-36); Alkaline Phosphatase 57 U/L (38-126); Anion Gap 10 mmol/L; Blood Urea Nitrogen 10 mg/dL (7-17); Calcium 9.6 mg/dL (8.4-10.2); Carbon Dioxide 22 mmol/L (22-30); Chloride 107 mmol/L (98-107); Glucose 115 mg/dL (74-99); Potassium 4.6 mmol/L (3.5-5.1); Sodium 139 mmol/L (137-145); Total Bilirubin 0.4 mg/dL (0.2-1.3); Total Protein 7.1 g/dL (6.3-8.2)
[2018-07-05 11:12] VITALS: RESP 16
[2018-07-05 11:58] VITALS: BP 138/70; PULSE 71
== END | disposition home or self-care (01) ==
LOC: PROCWHC3 09:55
PROVIDERS: ATTEND Internal Medicine Gastroenterology
DX: K50.10 Crohn's disease of large intestine without complications (principal)
CPT/HCPCS: 80053; 85025; 96413; 96415; 36415; Q5103

== ENCOUNTER → 2018-08-16 | Outpatient (CLI) | payer BC ==
[~2018-08-16] MED LIST changes: +ACETAMINOPHEN TAB 500 MG TAB PO NR; +LORATADINE 10 MG TAB PO NR
[2018-08-16 10:23] VITALS: TEMP 98.3
[2018-08-16 11:09] VITALS: RESP 16
[2018-08-16 11:57] VITALS: BP 128/76; PULSE 86
== END ==
LOC: PROCWHC3 09:55
PROVIDERS: ATTEND Internal Medicine Gastroenterology
DX: K50.10 Crohn's disease of large intestine without complications (principal)
CPT/HCPCS: 96413; 96415; Q5103

== ENCOUNTER → 2018-09-27 | Outpatient (CLI) | payer BC ==
[~2018-09-27] MED LIST changes: -ACETAMINOPHEN TAB 500 MG TAB PO NR; -LORATADINE 10 MG TAB PO NR; +SODIUM CHLORIDE 0.9% 500 ML 500 ML in EMPTY BAG 1 BAG IV PRN; -SODIUM CHLORIDE 0.9% 500 ML in EMPTY BAG 1 BAG IV PRN
[2018-09-27 11:28] VITALS: RESP 16; TEMP 98.6
[2018-09-27 12:51] VITALS: BP 132/78; PULSE 71
== END | disposition home or self-care (01) ==
LOC: PROCWHC3 11:00
PROVIDERS: ATTEND Internal Medicine Gastroenterology
DX: K50.10 Crohn's disease of large intestine without complications (principal)
CPT/HCPCS: 96413; 96415; Q5103

== ENCOUNTER → 2018-11-10 | Outpatient (CLI) | payer BC ==
[2018-11-10 11:27] LABS: Basophils % (A) 0 %; Eosinophils # (A) 0.2 k/uL (0-0.7); Eosinophils % (A) 2 %; HCT 46.2 % (34.0-46.0); HGB 15.2 gm/dL (11.4-16.0); Lymphocytes # (A) 2.1 k/uL (1.0-4.8); Lymphocytes % (A) 24 %; MCH 29.7 pg (25.0-35.0); MCHC 32.9 g/dL (31.0-37.0); MCV 90.5 fL (80.0-100.0); Mean Platelet Volume 7.4; Monocytes # (A) 0.4 k/uL (0-1.0); Monocytes % (A) 4 %; Neutrophils % (A) 68 %; Platelet Count 258 k/uL (150-450); RDW 12.7 % (11.5-15.5); WBC 8.8 k/uL (3.8-10.6)
[2018-11-10 11:42] LABS: ALT 42 U/L (9-52); AST 42 U/L (14-36); Alkaline Phosphatase 44 U/L (38-126); Anion Gap 8 mmol/L; Blood Urea Nitrogen 10 mg/dL (7-17); Calcium 9.7 mg/dL (8.4-10.2); Carbon Dioxide 26 mmol/L (22-30); Chloride 106 mmol/L (98-107); Glucose 91 mg/dL (74-99); Sodium 140 mmol/L (137-145); Total Bilirubin 0.8 mg/dL (0.2-1.3); Total Protein 7.4 g/dL (6.3-8.2)
[2018-11-10 11:50] LABS: Potassium 5.1 mmol/L (3.5-5.1)
[2018-11-10 12:25] VITALS: RESP 16; TEMP 98.1
[2018-11-10 12:50] VITALS: BP 110/65; PULSE 77
== END | disposition home or self-care (01) ==
LOC: PROCWHC3 10:17
PROVIDERS: ATTEND Internal Medicine Gastroenterology
DX: K50.10 Crohn's disease of large intestine without complications (principal)
CPT/HCPCS: 80053; 85025; 96413; 96415; 36415; Q5103

== ENCOUNTER 2018-11-22 10:30 | Emergency (ER) | payer BC ==
[2018-11-22] MEDS ORDERED: SODIUM CHLORIDE 0.9% 1,000 ML IV STA (11:54)
[2018-11-22] MEDS ORDERED: IPRATROPIUM-ALBUTEROL 3 ML NEB INHALATION STA (11:54)
[2018-11-22] MEDS ORDERED: KETOROLAC 30 MG/ML 1 ML VIAL IVP STA (11:54)
[2018-11-22] MEDS ORDERED: DEXAMETHASONE SOD PHOSPHATE 10 MG/ML 1 ML VIAL IV STA (11:54)
[2018-11-22 12:04] LABS: Glucose,Whole Blood 88 mg/dL (75-99)
[2018-11-22 12:15] LABS: Basophils % (A) 1 %; Eosinophils # (A) 0.1 k/uL (0-0.7); Eosinophils % (A) 2 %; HCT 46.7 % (34.0-46.0); HGB 15.2 gm/dL (11.4-16.0); Lymphocytes # (A) 1.5 k/uL (1.0-4.8); Lymphocytes % (A) 50 %; MCH 28.9 pg (25.0-35.0); MCHC 32.6 g/dL (31.0-37.0); MCV 88.5 fL (80.0-100.0); Mean Platelet Volume 6.8; Monocytes # (A) 0.3 k/uL (0-1.0); Monocytes % (A) 9 %; Neutrophils % (A) 34 %; Platelet Count 207 k/uL (150-450); RBC 5.27 m/uL (3.80-5.40); RDW 12.8 % (11.5-15.5)
--- NOTE | 2018-11-22 12:15 | ED ---
SOB HPI - General Chief Complaint: Shortness of Breath Stated Complaint: poss bronchitis Time Seen by Provider: 11/22/18 11:19 Source: patient, RN notes reviewed, old records reviewed Mode of arrival: ambulatory Limitations: no limitations - History of Present Illness Initial Comments: This is a 2-year-old female the ER for evaluation. Patient complains of cough congestion shortness of breath with exertion, body aches and pains. Sinus congestion and sinus pressure. Patient does have history of Crohn's on Remicade , recent start on Augmentin for sinusitis. Patient comes in today for worsening of symptoms. Fever. Body aches. Sweats. Some chest tightness or shortness of breath. No recent travel history no sick contacts no recent hospitalizations. MD Complaint: shortness of breath, cough -: week(s) Severity: mild Severity scale (1-10): 2 (w cough) Quality: aching Consistency: intermittent Improves With: nothing Worsens With: coughing, inspiration Context: recent URI Associated Symptoms: fever, cough, nausea/vomiting Treatments Prior to Arrival: none - Related Data Home Medications Medication Instructions Recorded Confirmed diphenhydrAMINE [Benadryl] 25 mg PO HS 03/11/16 11/22/18 Multivitamins, Thera [Multivitamin 1 tab PO DAILY 04/23/16 11/22/18 (formulary)] inFLIXimab [Remicade] 500 mg IVPB Q42D 07/02/16 11/22/18 Cholecalciferol (Vitamin D3) 1 tab PO DAILY 02/25/18 11/22/18 [Vitamin D3] Anti-Biotic (Unknown) 1 tab PO DIRECTED 11/22/18 Previous Rx's Medication Instructions Recorded Albuterol Sulfate [Proair Hfa] 1 - 2 puff INHALATION Q4H PRN #1 11/22/18 inhaler Azithromycin [Zithromax Z-pack] 0 mg PO DIRECTED #1 pack 11/22/18 Allergies Allergy/AdvReac Type Severity Reaction Status Date / Time latex Allergy Rash/Hives Verified 11/22/18 11:43 Review of Systems ROS Statement: Those systems with pertinent positive or pertinent negative responses have been documented in the HPI. ROS Other: All systems not noted in ROS Statement are negative. Past Medical History Additional Past Medical History / Comment(s): chrohn's disease/ hypogylcemia gestational dm History of Any Multi-Drug Resistant Organisms: None Reported Past Surgical History: No Surgical Hx Reported Additional Past Surgical History / Comment(s): colonoscopy Past Anesthesia/Blood Transfusion Reactions: No Reported Reaction Additional Past Anesthesia/Blood Transfusion Reaction / Comment(s): took a while to come out Past Psychological History: No Psychological Hx Reported Smoking Status: Never smoker - Past Family History Mother Family Medical History: No Reported History General Exam Limitations: no limitations General appearance: alert, in no apparent distress Head exam: Present: atraumatic, normocephalic, normal inspection Eye exam: Present: normal appearance, PERRL, EOMI. Absent: scleral icterus, conjunctival injection, periorbital swelling ENT exam: Present: normal exam, mucous membranes moist Neck exam: Present: normal inspection. Absent: tenderness, meningismus, lymphadenopathy Respiratory exam: Present: normal lung sounds bilaterally. Absent: respiratory distress, wheezes, rales, rhonchi, stridor Cardiovascular Exam: Present: regular rate, normal rhythm, normal heart sounds. Absent: systolic murmur, diastolic murmur, rubs, gallop, clicks GI/Abdominal exam: Present: soft, normal bowel sounds. Absent: distended, tenderness, guarding, rebound, rigid Extremities exam: Present: normal inspection, full ROM, normal capillary refill. Absent: tenderness, pedal edema, joint swelling, calf tenderness Back exam: Present: normal inspection Neurological exam: Present: alert, oriented X3, CN II-XII intact Psychiatric exam: Present: normal affect, normal mood Skin exam: Present: warm, dry, intact, normal color. Absent: rash Course Vital Signs 11/22/18 11/22/18 11/22/18 10:37 12:20 12:27 Temperature 98.3 F Pulse Rate 92 82 84 Respiratory 18 12 Rate Blood Pressure 113/74 O2 Sat by Pulse 98 Oximetry 11/22/18 14:57 Temperature 98.9 F Pulse Rate 76 Respiratory 18 Rate Blood Pressure 133/69 O2 Sat by Pulse 98 Oximetry - Reevaluation(s) Reevaluation #1: 11/22/18 13:57 Medical records reviewed Reevaluation #2: 11/22/18 13:57 Patient does have improvement here in the emergency room with symptomatic therapy Medical Decision Making - Medical Decision Making 38-year-old female the ER for evasive persistent fever cough or congestion, positive bronchitis. Patient was placed on antibiotics and discharged home - Lab Data Result diagrams: 11/22/18 11:56 11/22/18 11:56 Lab Results 11/22/18 11/22/18 11/22/18 Range/Units 11:56 11:56 11:56 WBC 3.0 L (3.8-10.6) k/uL RBC 5.27 (3.80-5.40) m/uL Hgb 15.2 (11.4-16.0) gm/dL Hct 46.7 H (34.0-46.0) % MCV 88.5 (80.0-100.0) fL MCH 28.9 (25.0-35.0) pg MCHC 32.6 (31.0-37.0) g/dL RDW 12.8 (11.5-15.5) % Plt Count 207 (150-450) k/uL Neutrophils % 34 % Lymphocytes % 50 % Monocytes % 9 % Eosinophils % 2 % Basophils % 1 % Neutrophils # 1.0 L (1.3-7.7) k/uL Lymphocytes # 1.5 (1.0-4.8) k/uL Monocytes # 0.3 (0-1.0) k/uL Eosinophils # 0.1 (0-0.7) k/uL Basophils # 0.0 (0-0.2) k/uL PT (9.0-12.0) sec INR (<1.2) APTT (22.0-30.0) sec Sodium 141 (137-145) mmol/L Potassium 4.3 (3.5-5.1) mmol/L Chloride 108 H (98-107) mmol/L Carbon Dioxide 26 (22-30) mmol/L Anion Gap 7 mmol/L BUN 10 (7-17) mg/dL Creatinine 0.72 (0.52-1.04) mg/dL Est GFR (CKD-EPI)AfAm >90 (>60 ml/min/1.73 sqM) Est GFR (CKD-EPI)NonAf >90 (>60 ml/min/1.73 sqM) Glucose 92 (74-99) mg/dL POC Glucose (mg/dL) (75-99) mg/dL POC Glu Software Applications Developer ID Plasma Lactic Acid Richard (0.7-2.0) mmol/L Calcium 9.1 (8.4-10.2) mg/dL Phosphorus 3.2 (2.5-4.5) mg/dL Magnesium 2.0 (1.6-2.3) mg/dL Total Bilirubin 0.3 (0.2-1.3) mg/dL AST 42 H (14-36) U/L ALT 48 (9-52) U/L Alkaline Phosphatase 47 (38-126) U/L Total Creatine Kinase 178 H (30-135) U/L CK-MB (CK-2) 0.8 (0.0-2.4) ng/mL CK-MB (CK-2) Rel Index 0.4 Troponin I <0.012 (0.000-0.034) ng/mL Total Protein 6.9 (6.3-8.2) g/dL Albumin 3.8 (3.5-5.0) g/dL Urine Color Urine Appearance (Clear) Urine pH (5.0-8.0) Ur Specific [place] (1.001-1.035) Urine Protein (Negative) Urine Glucose (UA) (Negative) Urine Ketones (Negative) Urine Blood (Negative) Urine Nitrite (Negative) Urine Bilirubin (Negative) Urine Urobilinogen (<2.0) mg/dL Ur Leukocyte Esterase (Negative) Urine WBC (0-5) /hpf Ur Squamous Epith Cells (0-4) /hpf Urine Bacteria (None) /hpf 11/22/18 11/22/18 11/22/18 Range/Units 11:56 11:56 12:03 WBC (3.8-10.6) k/uL RBC (3.80-5.40) m/uL Hgb (11.4-16.0) gm/dL Hct (34.0-46.0) % MCV (80.0-100.0) fL MCH (25.0-35.0) pg MCHC (31.0-37.0) g/dL RDW (11.5-15.5) % Plt Count (150-450) k/uL Neutrophils % % Lymphocytes % % Monocytes % % Eosinophils % % Basophils % % Neutrophils # (1.3-7.7) k/uL Lymphocytes # (1.0-4.8) k/uL Monocytes # (0-1.0) k/uL Eosinophils # (0-0.7) k/uL Basophils # (0-0.2) k/uL PT 9.6 (9.0-12.0) sec INR 0.9 (<1.2) APTT 27.5 (22.0-30.0) sec Sodium (137-145) mmol/L Potassium (3.5-5.1) mmol/L Chloride (98-107) mmol/L Carbon Dioxide (22-30) mmol/L Anion Gap mmol/L BUN (7-17) mg/dL Creatinine (0.52-1.04) mg/dL Est GFR (CKD-EPI)AfAm (>60 ml/min/1.73 sqM) Est GFR (CKD-EPI)NonAf (>60 ml/min/1.73 sqM) Glucose (74-99) mg/dL POC Glucose (mg/dL) 88 (75-99) mg/dL POC Glu Software Applications Developer ID [place] Plasma Lactic Acid Richard 0.9 (0.7-2.0) mmol/L Calcium (8.4-10.2) mg/dL Phosphorus (2.5-4.5) mg/dL Magnesium (1.6-2.3) mg/dL Total Bilirubin (0.2-1.3) mg/dL AST (14-36) U/L ALT (9-52) U/L Alkaline Phosphatase (38-126) U/L Total Creatine Kinase (30-135) U/L CK-MB (CK-2) (0.0-2.4) ng/mL CK-MB (CK-2) Rel Index Troponin I (0.000-0.034) ng/mL Total Protein (6.3-8.2) g/dL Albumin (3.5-5.0) g/dL Urine Color Urine Appearance (Clear) Urine pH (5.0-8.0) Ur Specific [place] (1.001-1.035) Urine Protein (Negative) Urine Glucose (UA) (Negative) Urine Ketones (Negative) Urine Blood (Negative) Urine Nitrite (Negative) Urine Bilirubin (Negative) Urine Urobilinogen (<2.0) mg/dL Ur Leukocyte Esterase (Negative) Urine WBC (0-5) /hpf Ur Squamous Epith Cells (0-4) /hpf Urine Bacteria (None) /hpf 01/14/19 Range/Units 12:32 WBC (3.8-10.6) k/uL RBC (3.80-5.40) m/uL Hgb (11.4-16.0) gm/dL Hct (34.0-46.0) % MCV (80.0-100.0) fL MCH (25.0-35.0) pg MCHC (31.0-37.0) g/dL RDW (11.5-15.5) % Plt Count (150-450) k/uL Neutrophils % % Lymphocytes % % Monocytes % % Eosinophils % % Basophils % % Neutrophils # (1.3-7.7) k/uL Lymphocytes # (1.0-4.8) k/uL Monocytes # (0-1.0) k/uL Eosinophils # (0-0.7) k/uL Basophils # (0-0.2) k/uL PT (9.0-12.0) sec INR (<1.2) APTT (22.0-30.0) sec Sodium (137-145) mmol/L Potassium (3.5-5.1) mmol/L Chloride (98-107) mmol/L Carbon Dioxide (22-30) mmol/L Anion Gap mmol/L BUN (7-17) mg/dL Creatinine (0.52-1.04) mg/dL Est GFR (CKD-EPI)AfAm (>60 ml/min/1.73 sqM) Est GFR (CKD-EPI)NonAf (>60 ml/min/1.73 sqM) Glucose (74-99) mg/dL POC Glucose (mg/dL) (75-99) mg/dL POC Glu Software Applications Developer ID Plasma Lactic Acid Richard (0.7-2.0) mmol/L Calcium (8.4-10.2) mg/dL Phosphorus (2.5-4.5) mg/dL Magnesium (1.6-2.3) mg/dL Total Bilirubin (0.2-1.3) mg/dL AST (14-36) U/L ALT (9-52) U/L Alkaline Phosphatase (38-126) U/L Total Creatine Kinase (30-135) U/L CK-MB (CK-2) (0.0-2.4) ng/mL CK-MB (CK-2) Rel Index Troponin I (0.000-0.034) ng/mL Total Protein (6.3-8.2) g/dL Albumin (3.5-5.0) g/dL Urine Color Yellow Urine Appearance Cloudy H (Clear) Urine pH 6.0 (5.0-8.0) Ur Specific [place] 1.007 (1.001-1.035) Urine Protein Negative (Negative) Urine Glucose (UA) Negative (Negative) Urine Ketones Negative (Negative) Urine Blood Negative (Negative) Urine Nitrite Negative (Negative) Urine Bilirubin Negative (Negative) Urine Urobilinogen <2.0 (<2.0) mg/dL Ur Leukocyte Esterase Negative (Negative) Urine WBC 1 (0-5) /hpf Ur Squamous Epith Cells 8 H (0-4) /hpf Urine Bacteria Rare H (None) /hpf - EKG Data -: EKG Interpreted by Me (EKG shows normal sinus rhythm rate of 75, MS 136, QRS 96, QTc 4:15) - Radiology Data Radiology results: report reviewed (Chest x-ray shows bronchitis and pleural thickening), image reviewed Disposition Clinical Impression: Acute bronchitis, Walking pneumonia Disposition: HOME SELF-CARE Condition: Good Instructions: Acute Bronchitis (ED) Prescriptions: Albuterol Sulfate [Proair Hfa] 1 - 2 puff INHALATION Q4H PRN #1 inhaler PRN Reason: Shortness Of Breath Azithromycin [Zithromax Z-pack] 0 mg PO DIRECTED #1 pack Is patient prescribed a controlled substance at d/c from ED?: No Referrals: Kayleen Ferrer DO [Primary Care Provider] - 1-2 days
[2018-11-22 12:21] LABS: INR 0.9 (<1.2); Partial Thromboplastin Time 27.5 sec (22.0-30.0); Prothrombin Time 9.6 sec (9.0-12.0)
[2018-11-22 12:31] LABS: ALT 48 U/L (9-52); AST 42 U/L (14-36); Albumin 3.8 g/dL (3.5-5.0); Alkaline Phosphatase 47 U/L (38-126); Anion Gap 7 mmol/L; Blood Urea Nitrogen 10 mg/dL (7-17); Calcium 9.1 mg/dL (8.4-10.2); Carbon Dioxide 26 mmol/L (22-30); Chloride 108 mmol/L (98-107); Glucose 92 mg/dL (74-99); Phosphorus 3.2 mg/dL (2.5-4.5); Potassium 4.3 mmol/L (3.5-5.1); Sodium 141 mmol/L (137-145); Total Bilirubin 0.3 mg/dL (0.2-1.3); Total Protein 6.9 g/dL (6.3-8.2)
[2018-11-22 12:48] LABS: Creatine Kinase 178 U/L (30-135)
[2018-11-22 13:02] LABS: Creatine Kinase MB 0.8 ng/mL (0.0-2.4); Troponin I <0.012 ng/mL (0.000-0.034)
--- NOTE | 2018-11-22 13:05 | XR ---
EXAMINATION TYPE: XR abdomen acute w cxr DATE OF EXAM: 11/22/2018 COMPARISON: 07/25/2016 chest radiograph HISTORY: Cough, nausea, and vomiting. Abdominal pain. TECHNIQUE: Supine, upright, and left side down lateral decubitus views of the abdomen are obtained. FINDINGS: No focal consolidation is seen within the lungs however there is central peribronchial cuffing identi fied. Cardiomediastinal silhouette is within normal limits. Osseous structures are grossly intact. No dilated large or small bowel is seen. No suspicious calcifications in the abdomen or pelvis. [place] us structures are grossly intact. There is a paucity of bowel gas in the rectum incidentally noted. IMPRESSION: 1. No focal consolidation to suggest pneumonia. Peribronchial cuffing centrally suggests reactive or infectious airway disease. 2. Nonobstructive bowel gas pattern.
[2018-11-22] MEDS ORDERED: AZITHROMYCIN 500 MG in SODIUM CHLORIDE 0.9% 250 ML IVPB STA (13:07)
[2018-11-22 13:28] LABS: Appearance,Urine Cloudy (Clear); Bacteria,Urine Rare /hpf; Bilirubin,Urine Negative (Negative); Blood,Urine Negative (Negative); Color,Urine Yellow; Glucose,Urine (UA) Negative (Negative); Ketones,Urine Negative (Negative); Leukocyte Esterase,Urine Negative (Negative); Nitrite,Urine Negative (Negative); Protein,Urine Negative (Negative); Specific Gravity,Urine 1.007 (1.001-1.035); Squamous Epithelial Cell,Urine 8 /hpf (0-4); Urobilinogen,Urine <2.0 mg/dL (<2.0); WBC,Urine 1 /hpf (0-5)
[2018-11-22 15:11] VITALS: BP 133/69; PULSE 76; RESP 18; TEMP 98.9
== END 2018-11-22 15:11 | disposition home or self-care (01) ==
LOC: EC 10:30
DX: J18.9 Pneumonia, unspecified organism (principal); J20.9 Acute bronchitis, unspecified; Z79.899 Other long term (current) drug therapy; Z91.040 Latex allergy status
CPT/HCPCS: 36415; 94640; 93005; 80053; 82550; 82553; 83605; 83735; 84100; 84484; 85025; 85610; 85730; 81001; 87040; 87086; 74022; 99285; 96374; 96375; J1100; J0456; J1885

== ENCOUNTER → 2018-12-22 | Outpatient (CLI) | payer BC ==
[2018-12-22 08:40] VITALS: RESP 16; TEMP 98.1
[2018-12-22 08:52] LABS: Basophils % (A) 0 %; Eosinophils # (A) 0.3 k/uL (0-0.7); Eosinophils % (A) 3 %; HCT 44.9 % (34.0-46.0); HGB 15.2 gm/dL (11.4-16.0); Lymphocytes # (A) 2.3 k/uL (1.0-4.8); Lymphocytes % (A) 27 %; MCH 30.4 pg (25.0-35.0); MCHC 33.8 g/dL (31.0-37.0); MCV 90.1 fL (80.0-100.0); Mean Platelet Volume 7.2; Monocytes # (A) 0.4 k/uL (0-1.0); Monocytes % (A) 5 %; Neutrophils # (A) 5.4 k/uL (1.3-7.7); Neutrophils % (A) 63 %; Platelet Count 299 k/uL (150-450); RBC 4.99 m/uL (3.80-5.40); RDW 13.3 % (11.5-15.5); WBC 8.6 k/uL (3.8-10.6)
[2018-12-22 10:40] VITALS: BP 123/57; PULSE 78
== END ==
LOC: PROCWHC3 08:25
PROVIDERS: ATTEND Internal Medicine Gastroenterology
DX: K50.10 Crohn's disease of large intestine without complications (principal)
CPT/HCPCS: 85025; Q5103

== ENCOUNTER → 2019-02-10 | Outpatient (CLI) | payer BC ==
[2019-02-10 08:36] VITALS: RESP 18; TEMP 98.2
[2019-02-10 09:17] LABS: Basophils % (A) 1 %; Eosinophils # (A) 0.2 k/uL (0-0.7); Eosinophils % (A) 3 %; HCT 44.8 % (34.0-46.0); HGB 14.8 gm/dL (11.4-16.0); Lymphocytes # (A) 1.8 k/uL (1.0-4.8); Lymphocytes % (A) 26 %; MCH 29.1 pg (25.0-35.0); MCV 88.2 fL (80.0-100.0); Monocytes # (A) 0.4 k/uL (0-1.0); Monocytes % (A) 6 %; Neutrophils # (A) 4.4 k/uL (1.3-7.7); Neutrophils % (A) 64 %; Platelet Count 295 k/uL (150-450); RBC 5.08 m/uL (3.80-5.40); RDW 13.1 % (11.5-15.5); WBC 6.9 k/uL (3.8-10.6)
[2019-02-10 09:33] LABS: Anion Gap 8 mmol/L; Blood Urea Nitrogen 9 mg/dL (7-17); Calcium 9.2 mg/dL (8.4-10.2); Carbon Dioxide 24 mmol/L (22-30); Chloride 109 mmol/L (98-107); Glucose 111 mg/dL (74-99); Sodium 141 mmol/L (137-145); Total Bilirubin 0.8 mg/dL (0.2-1.3)
[2019-02-10 10:03] VITALS: BP 112/73; PULSE 73
[2019-02-10 10:09] LABS: Potassium 4.7 mmol/L (3.5-5.1)
[2019-02-10 10:10] LABS: ALT 44 U/L (9-52); AST 40 U/L (14-36); Alkaline Phosphatase 44 U/L (38-126); Total Protein 7.2 g/dL (6.3-8.2)
== END | disposition home or self-care (01) ==
LOC: PROCWHC3 08:20
PROVIDERS: ATTEND Internal Medicine Gastroenterology
DX: K50.10 Crohn's disease of large intestine without complications (principal)
CPT/HCPCS: 80053; 85025; 96413; 96415; 36415; Q5103

== ENCOUNTER → 2019-04-08 | Outpatient (CLI) | payer BC ==
[2019-04-08 09:45] VITALS: TEMP 98.1
[2019-04-08 10:23] LABS: Basophils % (A) 1 %; Eosinophils # (A) 0.2 k/uL (0-0.7); Eosinophils % (A) 2 %; HCT 45.5 % (34.0-46.0); HGB 14.5 gm/dL (11.4-16.0); Lymphocytes # (A) 2.2 k/uL (1.0-4.8); Lymphocytes % (A) 27 %; MCH 28.1 pg (25.0-35.0); MCHC 31.9 g/dL (31.0-37.0); MCV 88.3 fL (80.0-100.0); Mean Platelet Volume 7.5; Monocytes # (A) 0.5 k/uL (0-1.0); Monocytes % (A) 6 %; Neutrophils # (A) 5.1 k/uL (1.3-7.7); Neutrophils % (A) 62 %; Platelet Count 299 k/uL (150-450); RBC 5.16 m/uL (3.80-5.40); RDW 13.3 % (11.5-15.5); WBC 8.2 k/uL (3.8-10.6)
[2019-04-08 10:29] LABS: ALT 43 U/L (9-52); AST 30 U/L (14-36); Alkaline Phosphatase 58 U/L (38-126); Anion Gap 6 mmol/L; Blood Urea Nitrogen 10 mg/dL (7-17); Calcium 9.5 mg/dL (8.4-10.2); Carbon Dioxide 26 mmol/L (22-30); Chloride 108 mmol/L (98-107); Glucose 103 mg/dL (74-99); Potassium 4.6 mmol/L (3.5-5.1); Sodium 140 mmol/L (137-145); Total Bilirubin 0.5 mg/dL (0.2-1.3); Total Protein 7.1 g/dL (6.3-8.2)
[2019-04-08 10:50] VITALS: RESP 16
[2019-04-08 11:22] VITALS: BP 111/78; PULSE 83
== END ==
LOC: PROCWHC3 09:20
PROVIDERS: ATTEND Internal Medicine Gastroenterology
DX: K50.10 Crohn's disease of large intestine without complications (principal)
CPT/HCPCS: 80053; 85025; 96413; 96415; Q5103

== ENCOUNTER → 2019-05-23 | Outpatient (CLI) | payer BC ==
[2019-05-23 10:12] VITALS: TEMP 98.7
[2019-05-23 10:30] LABS: Basophils % (A) 0 %; Eosinophils # (A) 0.3 k/uL (0-0.7); Eosinophils % (A) 4 %; HCT 45.6 % (34.0-46.0); Lymphocytes % (A) 27 %; MCH 29.2 pg (25.0-35.0); MCHC 32.9 g/dL (31.0-37.0); MCV 88.6 fL (80.0-100.0); Mean Platelet Volume 7.5; Monocytes # (A) 0.3 k/uL (0-1.0); Monocytes % (A) 5 %; Neutrophils # (A) 4.7 k/uL (1.3-7.7); Neutrophils % (A) 62 %; Platelet Count 259 k/uL (150-450); RBC 5.14 m/uL (3.80-5.40); RDW 13.9 % (11.5-15.5); WBC 7.6 k/uL (3.8-10.6)
[2019-05-23 10:42] LABS: ALT 32 U/L (9-52); AST 35 U/L (14-36); African American GFR (CKD) >90 (>60 ml/min/1.73 sqM); Albumin 4.1 g/dL (3.5-5.0); Alkaline Phosphatase 52 U/L (38-126); Anion Gap 8 mmol/L; Blood Urea Nitrogen 10 mg/dL (7-17); Calcium 9.3 mg/dL (8.4-10.2); Carbon Dioxide 24 mmol/L (22-30); Chloride 110 mmol/L (98-107); Glucose 128 mg/dL (74-99); Sodium 142 mmol/L (137-145); Total Bilirubin 0.5 mg/dL (0.2-1.3); Total Protein 7.2 g/dL (6.3-8.2)
[2019-05-23 10:45] LABS: Potassium 4.5 mmol/L (3.5-5.1)
[2019-05-23 11:15] VITALS: RESP 16
[2019-05-23 11:48] VITALS: BP 133/79; PULSE 69
== END | disposition home or self-care (01) ==
LOC: PROCWHC3 09:53
PROVIDERS: ATTEND Internal Medicine Gastroenterology
DX: K50.10 Crohn's disease of large intestine without complications (principal)
CPT/HCPCS: 80053; 85025; 96413; 96415; 36415; Q5103

== ENCOUNTER → 2019-07-04 | Outpatient (CLI) | payer BC ==
[2019-07-04 11:20] VITALS: TEMP 98.2
[2019-07-04 11:36] LABS: Basophils % (A) 0 %; Eosinophils # (A) 0.2 k/uL (0-0.7); Eosinophils % (A) 3 %; HCT 46.3 % (34.0-46.0); HGB 15.4 gm/dL (11.4-16.0); Lymphocytes # (A) 2.2 k/uL (1.0-4.8); Lymphocytes % (A) 27 %; MCH 30.2 pg (25.0-35.0); MCHC 33.3 g/dL (31.0-37.0); MCV 90.5 fL (80.0-100.0); Monocytes # (A) 0.5 k/uL (0-1.0); Monocytes % (A) 6 %; Neutrophils # (A) 5.1 k/uL (1.3-7.7); Neutrophils % (A) 63 %; Platelet Count 306 k/uL (150-450); RBC 5.12 m/uL (3.80-5.40); RDW 12.8 % (11.5-15.5); WBC 8.1 k/uL (3.8-10.6)
[2019-07-04 11:47] LABS: ALT 38 U/L (9-52); AST 26 U/L (14-36); African American GFR (CKD) >90 (>60 ml/min/1.73 sqM); Alkaline Phosphatase 55 U/L (38-126); Anion Gap 7 mmol/L; Blood Urea Nitrogen 11 mg/dL (7-17); Calcium 9.6 mg/dL (8.4-10.2); Carbon Dioxide 26 mmol/L (22-30); Chloride 108 mmol/L (98-107); Glucose 95 mg/dL (74-99); Potassium 4.1 mmol/L (3.5-5.1); Sodium 141 mmol/L (137-145); Total Bilirubin 0.5 mg/dL (0.2-1.3); Total Protein 7.3 g/dL (6.3-8.2)
[2019-07-04 12:37] VITALS: RESP 15
[2019-07-04 13:07] VITALS: BP 131/60; PULSE 69
== END | disposition home or self-care (01) ==
LOC: PROCWHC3 10:49
PROVIDERS: ATTEND Internal Medicine Gastroenterology
DX: K50.10 Crohn's disease of large intestine without complications (principal)
CPT/HCPCS: 80053; 85025; 96413; 96415; Q5103

== ENCOUNTER → 2019-08-15 | Outpatient (CLI) | payer BC ==
[2019-08-15 11:27] VITALS: RESP 16; TEMP 98.5
[2019-08-15 12:53] VITALS: BP 137/77; PULSE 71
== END ==
LOC: PROCWHC3 11:03
PROVIDERS: ATTEND Internal Medicine Gastroenterology
DX: K50.10 Crohn's disease of large intestine without complications (principal)
CPT/HCPCS: 96413; 96415; Q5103

== ENCOUNTER → 2019-08-22 | Outpatient (CLI) | payer BC ==
--- NOTE | 2019-08-23 15:01 | MM ---
Reason for exam: screening (asymptomatic). Last mammogram was performed 1 year and 2 months ago. History: Family history of breast cancer in mother. Took other hormone for 2 months. Physical Findings: A clinical breast exam by your physician is recommended on an annual basis and results should be correlated with mammographic findings. MG 3D Screening Mammo W/Cad Bilateral CC and MLO view(s) were taken. Prior study comparison: June 16, 2018, bilateral MG 3d screening mammo w/cad. February 03, 2017, bilateral MG 3d screening mammo w/cad. The breast tissue is heterogeneously dense. This may lower the sensitivity of mammography. No significant changes when compared with prior studies. ASSESSMENT: Benign, BI-RAD 2 RECOMMENDATION: Routine screening mammogram of both breasts in 1 year.
== END | disposition home or self-care (01) ==
LOC: RADMAMWWP 15:20
PROVIDERS: ATTEND Obstetrics & Gynecology
DX: Z12.31 Encounter for screening mammogram for malignant neoplasm of breast (principal); Z80.3 Family history of malignant neoplasm of breast
CPT/HCPCS: 77063; 77067

== ENCOUNTER → 2019-09-26 | Outpatient (CLI) | payer BC ==
[~2019-09-26] MED LIST changes: +INFLIXIMAB-DYYB 600 MG in SODIUM CHLORIDE 0.9% 250 ML IV NR
[2019-09-26 12:02] VITALS: BP 113/74; PULSE 72; RESP 18
== END | disposition home or self-care (01) ==
LOC: PROCWHC3 09:07
PROVIDERS: ATTEND Internal Medicine Gastroenterology
DX: K50.919 Crohn's disease, unspecified, with unspecified complications (principal)
CPT/HCPCS: 96413; 96415; Q5103

== ENCOUNTER → 2019-11-23 | Outpatient (CLI) | payer BC ==
[~2019-11-23] MED LIST changes: -INFLIXIMAB-DYYB 500 MG in SODIUM CHLORIDE 0.9% 250 ML IV NR
[2019-11-23 10:16] VITALS: RESP 16; TEMP 97.9
[2019-11-23 11:09] LABS: Basophils # (A) 0.1 k/uL (0-0.2); Basophils % (A) 0 %; Eosinophils # (A) 0.1 k/uL (0-0.7); Eosinophils % (A) 1 %; HCT 43.2 % (34.0-46.0); HGB 14.4 gm/dL (11.4-16.0); Lymphocytes # (A) 4.1 k/uL (1.0-4.8); Lymphocytes % (A) 34 %; MCH 30.3 pg (25.0-35.0); MCHC 33.2 g/dL (31.0-37.0); MCV 91.2 fL (80.0-100.0); Mean Platelet Volume 7.6; Monocytes # (A) 0.6 k/uL (0-1.0); Monocytes % (A) 5 %; Neutrophils # (A) 6.8 k/uL (1.3-7.7); Neutrophils % (A) 57 %; Platelet Count 323 k/uL (150-450); RBC 4.74 m/uL (3.80-5.40); RDW 12.6 % (11.5-15.5); WBC 12.1 k/uL (3.8-10.6)
[2019-11-23 11:24] LABS: ALT 24 U/L (4-34); AST 20 U/L (14-36); African American GFR (CKD) >90 (>60 ml/min/1.73 sqM); Albumin 3.6 g/dL (3.5-5.0); Alkaline Phosphatase 54 U/L (38-126); Anion Gap 4 mmol/L; Blood Urea Nitrogen 12 mg/dL (7-17); Calcium 9.5 mg/dL (8.4-10.2); Carbon Dioxide 29 mmol/L (22-30); Chloride 106 mmol/L (98-107); Glucose 96 mg/dL (74-99); Non-African American GFR(CKD) >90 (>60 ml/min/1.73 sqM); Potassium 3.8 mmol/L (3.5-5.1); Sodium 139 mmol/L (137-145); Total Bilirubin 0.5 mg/dL (0.2-1.3); Total Protein 6.5 g/dL (6.3-8.2)
[2019-11-23 11:30] VITALS: BP 111/70; PULSE 76
== END ==
LOC: PROCWHC3 09:49
PROVIDERS: ATTEND Internal Medicine Gastroenterology
DX: K50.919 Crohn's disease, unspecified, with unspecified complications (principal)
CPT/HCPCS: 80053; 85025; 96413; 96415; 36415; Q5103

== ENCOUNTER → 2020-01-18 | Outpatient (CLI) | payer BC ==
[2020-01-18 10:36] VITALS: RESP 16; TEMP 98.3
[2020-01-18 12:04] VITALS: BP 126/91; PULSE 80
== END | disposition home or self-care (01) ==
LOC: PROCWHC3 09:59
PROVIDERS: ATTEND Internal Medicine Gastroenterology
DX: K50.919 Crohn's disease, unspecified, with unspecified complications (principal)
CPT/HCPCS: 96413; 96415; Q5103

== ENCOUNTER → 2020-03-22 | Outpatient (CLI) | payer BC ==
[2020-03-22 11:43] VITALS: TEMP 98.1
[2020-03-22 12:05] LABS: Basophils % (A) 1 %; Eosinophils # (A) 0.2 k/uL (0-0.7); Eosinophils % (A) 3 %; HCT 48.1 % (34.0-46.0); HGB 15.3 gm/dL (11.4-16.0); Lymphocytes # (A) 2.2 k/uL (1.0-4.8); Lymphocytes % (A) 28 %; MCH 29.3 pg (25.0-35.0); MCHC 31.7 g/dL (31.0-37.0); MCV 92.4 fL (80.0-100.0); Mean Platelet Volume 7.8; Monocytes # (A) 0.4 k/uL (0-1.0); Monocytes % (A) 5 %; Neutrophils # (A) 4.8 k/uL (1.3-7.7); Neutrophils % (A) 61 %; Platelet Count 319 k/uL (150-450); RBC 5.21 m/uL (3.80-5.40); RDW 12.5 % (11.5-15.5); WBC 7.9 k/uL (3.8-10.6)
[2020-03-22 12:22] LABS: ALT 32 U/L (4-34); AST 31 U/L (14-36); African American GFR (CKD) >90 (>60 ml/min/1.73 sqM); Albumin 3.9 g/dL (3.5-5.0); Alkaline Phosphatase 64 U/L (38-126); Anion Gap 7 mmol/L; Blood Urea Nitrogen 10 mg/dL (7-17); Calcium 9.5 mg/dL (8.4-10.2); Carbon Dioxide 25 mmol/L (22-30); Chloride 106 mmol/L (98-107); Glucose 99 mg/dL (74-99); Non-African American GFR(CKD) >90 (>60 ml/min/1.73 sqM); Potassium 4.4 mmol/L (3.5-5.1); Sodium 138 mmol/L (137-145); Total Bilirubin 0.4 mg/dL (0.2-1.3); Total Protein 7.3 g/dL (6.3-8.2)
[2020-03-22 12:42] VITALS: BP 126/77
[2020-03-22 13:12] VITALS: PULSE 73; RESP 16
== END | disposition home or self-care (01) ==
LOC: PROCWHC3 11:16
PROVIDERS: ATTEND Internal Medicine Gastroenterology
DX: K50.919 Crohn's disease, unspecified, with unspecified complications (principal)
CPT/HCPCS: 80053; 85025; 96413; 96415; 36415; Q5103

== ENCOUNTER → 2020-05-10 | Outpatient (CLI) | payer BC ==
[2020-05-10 11:35] VITALS: RESP 16; TEMP 98.1
[2020-05-10 12:58] VITALS: BP 159/91; PULSE 58
== END | disposition home or self-care (01) ==
LOC: PROCWHC3 11:19
PROVIDERS: ATTEND Internal Medicine Rheumatology
DX: K50.919 Crohn's disease, unspecified, with unspecified complications (principal)
CPT/HCPCS: 96413; 96415; Q5103

== ENCOUNTER → 2020-06-21 | Outpatient (CLI) | payer BC ==
[2020-06-21 11:49] VITALS: PULSE 89; RESP 16; TEMP 98.7
[2020-06-21 13:27] VITALS: BP 119/73
== END | disposition home or self-care (01) ==
LOC: PROCWHC3 11:20
PROVIDERS: ATTEND Internal Medicine Rheumatology
DX: K50.919 Crohn's disease, unspecified, with unspecified complications (principal)
CPT/HCPCS: 96365; 96366; Q5103

== ENCOUNTER → 2020-08-10 | Outpatient (CLI) | payer BC ==
[2020-08-10 09:12] VITALS: RESP 16; TEMP 98
[2020-08-10 10:39] VITALS: BP 127/84; PULSE 66
== END | disposition home or self-care (01) ==
LOC: PROCWHC3 08:57
PROVIDERS: ATTEND Internal Medicine Rheumatology
DX: K50.919 Crohn's disease, unspecified, with unspecified complications (principal)
CPT/HCPCS: 96413; 96415; Q5103

== ENCOUNTER → 2020-08-22 | Outpatient (CLI) | payer BC ==
[2020-08-22 12:41] LABS: Basophils % (A) 1 %; Eosinophils # (A) 0.2 k/uL (0-0.7); Eosinophils % (A) 2 %; HCT 48.2 % (34.0-46.0); HGB 16.1 gm/dL (11.4-16.0); Lymphocytes # (A) 2.8 k/uL (1.0-4.8); Lymphocytes % (A) 37 %; MCH 30.9 pg (25.0-35.0); MCHC 33.5 g/dL (31.0-37.0); MCV 92.4 fL (80.0-100.0); Mean Platelet Volume 7.7; Monocytes # (A) 0.4 k/uL (0-1.0); Monocytes % (A) 5 %; Neutrophils # (A) 3.9 k/uL (1.3-7.7); Neutrophils % (A) 53 %; Platelet Count 307 k/uL (150-450); RBC 5.22 m/uL (3.80-5.40); RDW 12.3 % (11.5-15.5); WBC 7.4 k/uL (3.8-10.6)
[2020-08-22 20:50] LABS: Erythrocyte Sedimentation Rate 11 mm/Hr (0-20)
== END | disposition home or self-care (01) ==
LOC: LABWHC1 10:57
PROVIDERS: ATTEND Physician Assistant
DX: K50.90 Crohn's disease, unspecified, without complications (principal)
CPT/HCPCS: 36415; 85025; 85652; 86140

== ENCOUNTER → 2020-09-27 | Outpatient (CLI) | payer BC ==
[2020-09-27 09:42] VITALS: TEMP 98.5
[2020-09-27 11:11] VITALS: BP 127/82; PULSE 75; RESP 18
== END | disposition home or self-care (01) ==
LOC: PROCWHC3 08:54
PROVIDERS: ATTEND Internal Medicine Rheumatology
DX: K50.919 Crohn's disease, unspecified, with unspecified complications (principal)
CPT/HCPCS: 96413; 96415; Q5103

== ENCOUNTER → 2020-10-10 | Outpatient (CLI) | payer BC ==
[2020-10-10 19:37] LABS: T4, Free (Free Thyroxine) 0.9 ng/dL (0.80-1.80)
== END | disposition home or self-care (01) ==
LOC: LABWHC1 12:18
PROVIDERS: ATTEND Nurse Practitioner Family
DX: Z51.81 Encounter for therapeutic drug level monitoring (principal); R53.83 Other fatigue
CPT/HCPCS: 36415; 82306; 82607; 84439; 84443; 84481

== ENCOUNTER → 2020-10-15 | Outpatient (CLI) | payer BC ==
--- NOTE | 2020-10-15 12:04 | MM ---
Reason for exam: screening (asymptomatic). Last mammogram was performed 1 year and 2 months ago. History: Family history of breast cancer in mother. Took other hormone for 2 months. Physical Findings: A clinical breast exam by your physician is recommended on an annual basis and results should be correlated with mammographic findings. MG 3D Screening Mammo W/Cad Bilateral CC and MLO view(s) were taken. Prior study comparison: August 22, 2019, bilateral MG 3d screening mammo w/cad. June 16, 2018, bilateral MG 3d screening mammo w/cad. The breast tissue is heterogeneously dense. This may lower the sensitivity of mammography. There is chronic nodularity in the right breast. There is no discrete abnormality. ASSESSMENT: Benign, BI-RAD 2 RECOMMENDATION: Routine screening mammogram of both breasts in 1 year.
== END | disposition home or self-care (01) ==
LOC: RADMAMWWP 11:12
PROVIDERS: ATTEND Obstetrics & Gynecology
DX: Z12.31 Encounter for screening mammogram for malignant neoplasm of breast (principal); Z80.3 Family history of malignant neoplasm of breast
CPT/HCPCS: 77063; 77067

== ENCOUNTER 2020-10-23 11:25 | Emergency (ER) | payer BC ==
[2020-10-23 11:39] VITALS: TEMP 98.5
[2020-10-23] MEDS ORDERED: SODIUM CHLORIDE 0.9% 1,000 ML IV ONE (12:02)
--- NOTE | 2020-10-23 12:04 | ED ---
General Adult HPI - General Chief complaint: Shortness of Breath Stated complaint: +Covid, SOB Time Seen by Provider: 10/23/20 11:46 Source: patient, RN notes reviewed, old records reviewed Mode of arrival: ambulatory Limitations: no limitations - History of Present Illness Initial comments: 40-year-old female presents return today with worsening shortness of breath fatigued after being diagnosed with Covid the last . She reports her symptoms started the Thursday prior to this. She states that she felt worsening shortness of breath and decided to come to the ER. She reports that she has a history of Crohn's disease and is on immunologic medication. She states that she has had no fever. She reports that she has been taking an inhaler and [id number] medications. - Related Data Home Medications Medication Instructions Recorded Confirmed inFLIXimab [Remicade] 500 mg IVPB Q42D 07/02/16 10/23/20 Fluticasone Nasal [place] [Flonase 1 spray INTRANASAL HS 05/23/19 10/23/20 Nasal [place]] Albuterol Sulfate [Proair Hfa] 1 - 2 puff INHALATION RT-Q4H PRN 10/23/20 10/23/20 DULoxetine HCL [Cymbalta] 60 mg PO HS 10/23/20 10/23/20 Lifitegrast [Xiidra] 1 drop BOTH EYES HS 10/23/20 10/23/20 methylPREDNISolone Dose Pack See Taper PO DIRECTED 10/23/20 10/23/20 [Medrol Dose Pack] tiZANidine [Zanaflex] 2 mg PO BID PRN 10/23/20 10/23/20 Previous Rx's Medication Instructions Recorded Albuterol Inhaler [Ventolin Hfa 1 puff INHALATION RT-QID #1 inhaler 10/23/20 Inhaler] Azithromycin 250 mg PO DAILY 1 Days #1 tab 10/23/20 Azithromycin [Zithromax] 0 mg PO DIRECTED #6 tab 10/23/20 predniSONE [Deltasone] 20 mg PO BID #10 tab 10/23/20 Allergies Allergy/AdvReac Type Severity Reaction Status Date / Time latex Allergy Rash/Hives Verified 10/23/20 12:52 Review of Systems ROS Statement: Those systems with pertinent positive or pertinent negative responses have been documented in the HPI. ROS Other: All systems not noted in ROS Statement are negative. Past Medical History Past Medical History: Fibromyalgia, Pneumonia Additional Past Medical History / Comment(s): chrohn's disease/ hypogylcemia gestational dm. BRONCHITIS. History of Any Multi-Drug Resistant Organisms: None Reported Past Surgical History: Hysterectomy, Tubal Ligation Additional Past Surgical History / Comment(s): colonoscopy Past Anesthesia/Blood Transfusion Reactions: No Reported Reaction Additional Past Anesthesia/Blood Transfusion Reaction / Comment(s): took a while to come out Past Psychological History: No Psychological Hx Reported Smoking Status: Never smoker Past Alcohol Use History: None Reported Past Drug Use History: None Reported - Past Family History Mother Family Medical History: No Reported History General Exam - General Exam Comments Initial Comments: 40-year-old female. Patient is well-appearing. Oxygenation 99% on room air. Limitations: no limitations General appearance: alert, in no apparent distress Head exam: Present: atraumatic, normocephalic, normal inspection Eye exam: Present: normal appearance, PERRL, EOMI. Absent: scleral icterus, conjunctival injection, periorbital swelling ENT exam: Present: normal exam, mucous membranes moist Neck exam: Present: normal inspection. Absent: tenderness, meningismus, lymphadenopathy Respiratory exam: Present: normal lung sounds bilaterally. Absent: respiratory distress, wheezes, rales, rhonchi, stridor Cardiovascular Exam: Present: regular rate, normal rhythm, normal heart sounds. Absent: systolic murmur, diastolic murmur, rubs, gallop, clicks GI/Abdominal exam: Present: soft, normal bowel sounds. Absent: distended, tenderness, guarding, rebound, rigid Extremities exam: Present: normal inspection, full ROM, normal capillary refill. Absent: tenderness, pedal edema, joint swelling, calf tenderness Back exam: Present: normal inspection Neurological exam: Present: alert, oriented X3, CN II-XII intact Psychiatric exam: Present: normal affect, normal mood Skin exam: Present: warm, dry, intact, normal color. Absent: rash Course Vital Signs 10/23/20 11:36 Temperature 98.5 F Pulse Rate 75 Respiratory 20 Rate Blood Pressure 125/83 O2 Sat by Pulse 96 Oximetry EKG Findings - EKG Comments: EKG Findings:: EKG performed at 1153 shows normal sinus rhythm with normal EKG. Ventricular rate of 71 bpm. Was 134 ms. QRS duration is 102 ms. QT QTc is 380/412 ms. Medical Decision Making - Medical Decision Making 40-year-old female diagnosed with [place] last week presents worsening shortness of breath. Patient has a known history of Crohn's and is on any immunosuppressant drugs. She is given IV fluids and laboratory obtained. All lab work including d-dimer were stable. Patient has a normal CRP. Chest x-ray shows patchy infiltrates versus atelectasis. In having of known to cold diagnosis discussed this is likely reflective of Covid 19 infection. has been satting 99-90% on room air and does not appear toxic. Discussed treatment at this time with azithromycin to cover for atypical bacteria admitted diagnosis of infiltrate on chest x-ray. I will put the Patient on inhalers and steroid. I discussed this with Dr. Polanco. All questions answered. - Lab Data Result diagrams: 10/23/20 12:18 10/23/20 12:18 Lab Results 10/23/20 10/23/20 10/23/20 Range/Units 12:18 12:18 12:18 WBC 6.9 (3.8-10.6) k/uL RBC 5.43 H (3.80-5.40) m/uL Hgb 15.9 (11.4-16.0) gm/dL Hct 48.1 H (34.0-46.0) % MCV 88.5 (80.0-100.0) fL MCH 29.2 (25.0-35.0) pg MCHC 33.0 (31.0-37.0) g/dL RDW 12.6 (11.5-15.5) % Plt Count 237 (150-450) k/uL MPV 8.0 Neutrophils % 51 % Lymphocytes % 36 % Monocytes % 10 % Eosinophils % 2 % Basophils % 1 % Neutrophils # 3.5 (1.3-7.7) k/uL Lymphocytes # 2.4 (1.0-4.8) k/uL Monocytes # 0.7 (0-1.0) k/uL Eosinophils # 0.1 (0-0.7) k/uL Basophils # 0.0 (0-0.2) k/uL PT 9.7 (9.0-12.0) sec INR 0.9 (<1.2) APTT 25.5 (22.0-30.0) sec D-Dimer 0.48 (<0.60) mg/L FEU Sodium 138 (137-145) mmol/L Potassium 4.4 (3.5-5.1) mmol/L Chloride 109 H (98-107) mmol/L Carbon Dioxide 24 (22-30) mmol/L Anion Gap 5 mmol/L BUN 11 (7-17) mg/dL Creatinine 0.70 (0.52-1.04) mg/dL Est GFR (CKD-EPI)AfAm >90 (>60 ml/min/1.73 sqM) Est GFR (CKD-EPI)NonAf >90 (>60 ml/min/1.73 sqM) Glucose 95 (74-99) mg/dL Plasma Lactic Acid Richard (0.7-2.0) mmol/L Calcium 9.6 (8.4-10.2) mg/dL Magnesium 2.0 (1.6-2.3) mg/dL Total Bilirubin 0.3 (0.2-1.3) mg/dL AST 29 (14-36) U/L ALT 36 H (4-34) U/L Alkaline Phosphatase 64 (38-126) U/L Lactate Dehydrogenase 372 (313-618) U/L Troponin I (0.000-0.034) ng/mL C-Reactive Protein 7.6 (<10.0) mg/L Total Protein 7.1 (6.3-8.2) g/dL Albumin 4.0 (3.5-5.0) g/dL 10/23/20 10/23/20 Range/Units 12:18 12:18 WBC (3.8-10.6) k/uL RBC (3.80-5.40) m/uL Hgb (11.4-16.0) gm/dL Hct (34.0-46.0) % MCV (80.0-100.0) fL MCH (25.0-35.0) pg MCHC (31.0-37.0) g/dL RDW (11.5-15.5) % Plt Count (150-450) k/uL MPV Neutrophils % % Lymphocytes % % Monocytes % % Eosinophils % % Basophils % % Neutrophils # (1.3-7.7) k/uL Lymphocytes # (1.0-4.8) k/uL Monocytes # (0-1.0) k/uL Eosinophils # (0-0.7) k/uL Basophils # (0-0.2) k/uL PT (9.0-12.0) sec INR (<1.2) APTT (22.0-30.0) sec D-Dimer (<0.60) mg/L FEU Sodium (137-145) mmol/L Potassium (3.5-5.1) mmol/L Chloride (98-107) mmol/L Carbon Dioxide (22-30) mmol/L Anion Gap mmol/L BUN (7-17) mg/dL Creatinine (0.52-1.04) mg/dL Est GFR (CKD-EPI)AfAm (>60 ml/min/1.73 sqM) Est GFR (CKD-EPI)NonAf (>60 ml/min/1.73 sqM) Glucose (74-99) mg/dL Plasma Lactic Acid Richard 1.1 (0.7-2.0) mmol/L Calcium (8.4-10.2) mg/dL Magnesium (1.6-2.3) mg/dL Total Bilirubin (0.2-1.3) mg/dL AST (14-36) U/L ALT (4-34) U/L Alkaline Phosphatase (38-126) U/L Lactate Dehydrogenase (313-618) U/L Troponin I <0.012 (0.000-0.034) ng/mL C-Reactive Protein (<10.0) mg/L Total Protein (6.3-8.2) g/dL Albumin (3.5-5.0) g/dL - Radiology Data Radiology results: report reviewed Low lung volumes new patchy basilar acute infiltrates and/or atelectasis. Disposition Clinical Impression: Pneumonia, COVID-19 Disposition: HOME SELF-CARE Condition: Good Instructions (If sedation given, give patient instructions): Viral Pneumonia (ED) Additional Instructions: Patient is to take medications as prescribed. Recommended using a pulse oximeter at home to check her oxygenation. If below 93-90% and you're having severe difficulty bleeding increased return to the ER. Take the medications as prescribed and use inhaler as directed. Prescriptions: Azithromycin 250 mg PO DAILY 1 Days #1 tab predniSONE [Deltasone] 20 mg PO BID #10 tab Albuterol Inhaler [Ventolin Hfa Inhaler] 1 puff INHALATION RT-QID #1 inhaler Azithromycin [Zithromax] 0 mg PO DIRECTED #6 tab Is patient prescribed a controlled substance at d/c from ED?: No Referrals: Kayleen Ferrer DO [Primary Care Provider] - 1-2 days Time of Disposition: 14:08
[2020-10-23] MEDS ORDERED: SODIUM CHLORIDE 0.9% 1,000 ML IV SCH (12:15)
[2020-10-23 12:37] LABS: Basophils % (A) 1 %; Eosinophils # (A) 0.1 k/uL (0-0.7); Eosinophils % (A) 2 %; HCT 48.1 % (34.0-46.0); HGB 15.9 gm/dL (11.4-16.0); Lymphocytes # (A) 2.4 k/uL (1.0-4.8); Lymphocytes % (A) 36 %; MCH 29.2 pg (25.0-35.0); MCV 88.5 fL (80.0-100.0); Monocytes # (A) 0.7 k/uL (0-1.0); Monocytes % (A) 10 %; Neutrophils # (A) 3.5 k/uL (1.3-7.7); Neutrophils % (A) 51 %; Platelet Count 237 k/uL (150-450); RBC 5.43 m/uL (3.80-5.40); RDW 12.6 % (11.5-15.5); WBC 6.9 k/uL (3.8-10.6)
--- NOTE | 2020-10-23 12:49 | XR ---
EXAMINATION TYPE: XR chest 1V portable DATE OF EXAM: 10/23/2020 COMPARISON: Chest x-ray July 02, 2016 and CTA chest July 24, 2016 HISTORY: Chest pressure, possible covid 19 pneumonia. TECHNIQUE: 2 portable frontal views of the chest are obtained. FINDINGS: Persistent low lung volumes with new patchy basilar opacities. No pleural effusion or pne umothorax seen bilaterally. The cardiac silhouette size remains within normal limits. The osseous s tructures are intact. IMPRESSION: Low lung volumes with new patchy bibasilar acute infiltrates and/or atelectasis.
[2020-10-23 12:51] LABS: ALT 36 U/L (4-34); AST 29 U/L (14-36); African American GFR (CKD) >90 (>60 ml/min/1.73 sqM); Alkaline Phosphatase 64 U/L (38-126); Anion Gap 5 mmol/L; Blood Urea Nitrogen 11 mg/dL (7-17); C Reactive Protein 7.6 mg/L (<10.0); Calcium 9.6 mg/dL (8.4-10.2); Carbon Dioxide 24 mmol/L (22-30); Chloride 109 mmol/L (98-107); Glucose 95 mg/dL (74-99); LDH 372 U/L (313-618); Non-African American GFR(CKD) >90 (>60 ml/min/1.73 sqM); Potassium 4.4 mmol/L (3.5-5.1); Sodium 138 mmol/L (137-145); Total Bilirubin 0.3 mg/dL (0.2-1.3); Total Protein 7.1 g/dL (6.3-8.2)
[2020-10-23 12:54] LABS: D-Dimer 0.48 mg/L FEU (<0.60); INR 0.9 (<1.2); Partial Thromboplastin Time 25.5 sec (22.0-30.0); Prothrombin Time 9.7 sec (9.0-12.0)
[2020-10-23] MEDS ORDERED: cefTRIAXone IN SWFI 1,000 MG/10 ML SYRINGE IVP STA (14:06)
[2020-10-23] MEDS ORDERED: methylPREDNISolone SOD SUCCI 125 MG/2 ML VIAL IV STA (14:06)
[2020-10-23 14:47] VITALS: BP 140/95; PULSE 63; RESP 18
[2020-10-23 19:00] LABS: Ferritin 74.3 ng/mL (10.0-291.0)
== END 2020-10-23 14:51 | disposition home or self-care (01) ==
LOC: EC 11:25
DX: U07.1 COVID-19 (principal); J12.89 Other viral pneumonia; Z90.710 Acquired absence of both cervix and uterus; Z91.040 Latex allergy status
CPT/HCPCS: 36415; 93005; 85379; 80053; 82728; 83605; 83615; 83735; 84484; 85025; 85610; 85730; 86140; 84145; 71045; 99285; 96374; 96375; 96361 ×2; J2930; J0696

== ENCOUNTER 2020-10-26 15:51 | Emergency (ER) | payer BC ==
[2020-10-26 15:58] VITALS: RESP 18
[2020-10-26] MEDS ORDERED: ALBUTEROL HFA INHALER INHALATION STA (16:21)
[2020-10-26] MEDS ORDERED: SODIUM CHLORIDE 0.9% 1,000 ML IV STA (16:21)
--- NOTE | 2020-10-26 16:45 | ED ---
SOB HPI - General Chief Complaint: Shortness of Breath Stated Complaint: Dizzy, COVID+ Time Seen by Provider: 10/26/20 16:01 Source: patient Mode of arrival: wheelchair Limitations: no limitations - History of Present Illness Initial Comments: Patient states that she is still feeling short of breath. She was diagnosed with covert a week ago. She doesn't feel much improvement. She has taken antibiotics and steroids. She still has both at home. She has no chest pain or pressure or tightness. She has no nausea or vomiting. She has no diaphoresis. She has no focal weakness. She has no lightheadedness or dizziness. She has no pain or swelling in the arms or legs. - Related Data Home Medications Medication Instructions Recorded Confirmed inFLIXimab [Remicade] 500 mg IVPB Q42D 07/02/16 10/26/20 Fluticasone Nasal [place] [Flonase 1 spray INTRANASAL HS 05/23/19 10/26/20 Nasal [place]] Albuterol Sulfate [Proair Hfa] 1 - 2 puff INHALATION RT-Q4H PRN 10/23/20 10/26/20 DULoxetine HCL [Cymbalta] 60 mg PO HS 10/23/20 10/26/20 Lifitegrast [Xiidra] 1 drop BOTH EYES HS 10/23/20 10/26/20 tiZANidine [Zanaflex] 2 mg PO BID PRN 10/23/20 10/26/20 Azithromycin See Taper PO DAILY 10/26/20 10/26/20 DULoxetine HCL [Cymbalta] 30 mg PO DIRECTED 10/26/20 10/26/20 Previous Rx's Medication Instructions Recorded predniSONE [Deltasone] 20 mg PO BID #10 tab 10/23/20 Allergies Allergy/AdvReac Type Severity Reaction Status Date / Time latex Allergy Rash/Hives Verified 10/26/20 16:39 Review of Systems ROS Statement: Those systems with pertinent positive or pertinent negative responses have been documented in the HPI. ROS Other: All systems not noted in ROS Statement are negative. Past Medical History Past Medical History: Fibromyalgia, Pneumonia Additional Past Medical History / Comment(s): chrohn's disease/ hypogylcemia gestational dm. BRONCHITIS. History of Any Multi-Drug Resistant Organisms: None Reported Past Surgical History: Hysterectomy, Tubal Ligation Additional Past Surgical History / Comment(s): colonoscopy Past Anesthesia/Blood Transfusion Reactions: No Reported Reaction Additional Past Anesthesia/Blood Transfusion Reaction / Comment(s): took a while to come out Past Psychological History: No Psychological Hx Reported Smoking Status: Never smoker Past Alcohol Use History: None Reported Past Drug Use History: None Reported - Past Family History Mother Family Medical History: No Reported History General Exam Limitations: no limitations General appearance: alert, in no apparent distress Head exam: Present: atraumatic, normocephalic, normal inspection Eye exam: Present: normal appearance, PERRL, EOMI. Absent: scleral icterus, conjunctival injection, periorbital swelling ENT exam: Present: normal exam, mucous membranes moist Neck exam: Present: normal inspection. Absent: tenderness, meningismus, lymphadenopathy Respiratory exam: Present: normal lung sounds bilaterally. Absent: respiratory distress, wheezes, rales, rhonchi, stridor Cardiovascular Exam: Present: regular rate, normal rhythm, normal heart sounds. Absent: systolic murmur, diastolic murmur, rubs, gallop, clicks GI/Abdominal exam: Present: soft, normal bowel sounds. Absent: distended, tenderness, guarding, rebound, rigid Extremities exam: Present: normal inspection, full ROM, normal capillary refill. Absent: tenderness, pedal edema, joint swelling, calf tenderness Back exam: Present: normal inspection Neurological exam: Present: alert, oriented X3, CN II-XII intact Psychiatric exam: Present: normal affect, normal mood Skin exam: Present: warm, dry, intact, normal color. Absent: rash Course Vital Signs 10/26/20 10/26/20 10/26/20 15:53 16:13 17:57 Temperature 98.6 F Pulse Rate 100 98 95 Respiratory 18 18 18 Rate Blood Pressure 138/85 141/84 124/73 O2 Sat by Pulse 97 97 96 Oximetry Medical Decision Making - Medical Decision Making Patient's workup shows no evidence of an emergency. She does have pneumonia on her CT, but she is currently taking antibiotics. Her vital signs are normal. I don't see an indication for admission at this time. She is appropriate for outpatient antibiotic therapy. She is tolerating oral intake and has a normal pulse oximetry reading on room air. - Lab Data Result diagrams: 10/26/20 16:30 10/26/20 16:30 Lab Results 10/26/20 10/26/2010/26/20 Range/Units 16:30 16:30 16:30 WBC 11.2 H (3.8-10.6) k/uL RBC 5.36 (3.80-5.40) m/uL Hgb 15.9 (11.4-16.0) gm/dL Hct 48.3 H (34.0-46.0) % MCV 90.2 (80.0-100.0) fL MCH 29.7 (25.0-35.0) pg MCHC 33.0 (31.0-37.0) g/dL RDW 12.9 (11.5-15.5) % Plt Count 238 (150-450) k/uL MPV 7.7 Neutrophils % 62 % Lymphocytes % 27 % Monocytes % 8 % Eosinophils % 1 % Basophils % 1 % Neutrophils # 7.0 (1.3-7.7) k/uL Lymphocytes # 3.0 (1.0-4.8) k/uL Monocytes # 0.9 (0-1.0) k/uL Eosinophils # 0.2 (0-0.7) k/uL Basophils # 0.1 (0-0.2) k/uL PT 9.6 (9.0-12.0) sec INR 0.9 (<1.2) APTT 23.0 (22.0-30.0) sec D-Dimer 0.66 H (<0.60) mg/L FEU Sodium 135 L (137-145) mmol/L Potassium 3.8 (3.5-5.1) mmol/L Chloride 106 (98-107) mmol/L Carbon Dioxide 22 (22-30) mmol/L Anion Gap 7 mmol/L BUN 18 H (7-17) mg/dL Creatinine 0.83 (0.52-1.04) mg/dL Est GFR (CKD-EPI)AfAm >90 (>60 ml/min/1.73 sqM) Est GFR (CKD-EPI)NonAf 88 (>60 ml/min/1.73 sqM) Glucose 135 H (74-99) mg/dL Plasma Lactic Acid Richard (0.7-2.0) mmol/L Calcium 9.1 (8.4-10.2) mg/dL Magnesium 1.8 (1.6-2.3) mg/dL Total Bilirubin 0.3 (0.2-1.3) mg/dL AST 31 (14-36) U/L ALT 46 H (4-34) U/L Alkaline Phosphatase 63 (38-126) U/L Troponin I (0.000-0.034) ng/mL Total Protein 7.1 (6.3-8.2) g/dL Albumin 3.8 (3.5-5.0) g/dL 10/26/20 10/26/20 Range/Units 16:30 16:30 WBC (3.8-10.6) k/uL RBC (3.80-5.40) m/uL Hgb (11.4-16.0) gm/dL Hct (34.0-46.0) % MCV (80.0-100.0) fL MCH (25.0-35.0) pg MCHC (31.0-37.0) g/dL RDW (11.5-15.5) % Plt Count (150-450) k/uL MPV Neutrophils % % Lymphocytes % % Monocytes % % Eosinophils % % Basophils % % Neutrophils # (1.3-7.7) k/uL Lymphocytes # (1.0-4.8) k/uL Monocytes # (0-1.0) k/uL Eosinophils # (0-0.7) k/uL Basophils # (0-0.2) k/uL PT (9.0-12.0) sec INR (<1.2) APTT (22.0-30.0) sec D-Dimer (<0.60) mg/L FEU Sodium (137-145) mmol/L Potassium (3.5-5.1) mmol/L Chloride (98-107) mmol/L Carbon Dioxide (22-30) mmol/L Anion Gap mmol/L BUN (7-17) mg/dL Creatinine (0.52-1.04) mg/dL Est GFR (CKD-EPI)AfAm (>60 ml/min/1.73 sqM) Est GFR (CKD-EPI)NonAf (>60 ml/min/1.73 sqM) Glucose (74-99) mg/dL Plasma Lactic Acid Richard 1.7 (0.7-2.0) mmol/L Calcium (8.4-10.2) mg/dL Magnesium (1.6-2.3) mg/dL Total Bilirubin (0.2-1.3) mg/dL AST (14-36) U/L ALT (4-34) U/L Alkaline Phosphatase (38-126) U/L Troponin I <0.012 (0.000-0.034) ng/mL Total Protein (6.3-8.2) g/dL Albumin (3.5-5.0) g/dL 10/26/20 16:45 Twelve-lead EKG shows ventricular rate 80 bpm, normal CT interval and QRS complexes, no ST elevation or depression, interpreted by me as normal sinus rhythm. Disposition Clinical Impression: Pneumonia Disposition: HOME SELF-CARE Condition: Good Instructions (If sedation given, give patient instructions): Pneumonia (ED) Is patient prescribed a controlled substance at d/c from ED?: No Referrals: Kayleen Ferrer DO [Primary Care Provider] - 1-2 days
[2020-10-26 16:47] LABS: Basophils # (A) 0.1 k/uL (0-0.2); Basophils % (A) 1 %; Eosinophils # (A) 0.2 k/uL (0-0.7); Eosinophils % (A) 1 %; HCT 48.3 % (34.0-46.0); HGB 15.9 gm/dL (11.4-16.0); Lymphocytes % (A) 27 %; MCH 29.7 pg (25.0-35.0); MCV 90.2 fL (80.0-100.0); Mean Platelet Volume 7.7; Monocytes # (A) 0.9 k/uL (0-1.0); Monocytes % (A) 8 %; Neutrophils % (A) 62 %; Platelet Count 238 k/uL (150-450); RBC 5.36 m/uL (3.80-5.40); RDW 12.9 % (11.5-15.5); WBC 11.2 k/uL (3.8-10.6)
[2020-10-26 16:52] LABS: INR 0.9 (<1.2); Prothrombin Time 9.6 sec (9.0-12.0)
[2020-10-26 16:55] LABS: D-Dimer 0.66 mg/L FEU (<0.60)
[2020-10-26 16:57] LABS: ALT 46 U/L (4-34); AST 31 U/L (14-36); African American GFR (CKD) >90 (>60 ml/min/1.73 sqM); Albumin 3.8 g/dL (3.5-5.0); Alkaline Phosphatase 63 U/L (38-126); Anion Gap 7 mmol/L; Blood Urea Nitrogen 18 mg/dL (7-17); Calcium 9.1 mg/dL (8.4-10.2); Carbon Dioxide 22 mmol/L (22-30); Chloride 106 mmol/L (98-107); Glucose 135 mg/dL (74-99); Magnesium 1.8 mg/dL (1.6-2.3); Non-African American GFR(CKD) 88 (>60 ml/min/1.73 sqM); Potassium 3.8 mmol/L (3.5-5.1); Sodium 135 mmol/L (137-145); Total Bilirubin 0.3 mg/dL (0.2-1.3); Total Protein 7.1 g/dL (6.3-8.2)
--- NOTE | 2020-10-26 17:51 | CT ---
EXAMINATION TYPE: CT angio chest DATE OF EXAM: 10/26/2020 COMPARISON: 07/24/2016 HISTORY: SOB, +covid CT DLP: 460.1 mGycm Automated exposure control for dose reduction was used. CONTRAST: Performed with IV Contrast, patient injected with 80cc mL of Isovue 370. There are 3-D post processed images. There is some patchy airspace infiltrate in the right upper lobe and right middle lobe. The left lung is fairly clear. There is minimal 2 cm subpleural infiltrate anterior left upper lobe. There is mild atelectasis right posterior lung base. There is no pleural effusion. Heart size is normal. There is no pericardial effusion. There is no mediastinal adenopathy. Thoracic aorta appears intact. There is no sign of aneurysm or di ssection. There is normal contrast opacification of the pulmonary arteries. There are no filling defects. The thoracic vertebra have normal spacing and alignment. There is no compression fracture. Sternum is intact. The ribs appear intact. IMPRESSION: Mild infiltrate and atelectasis as above in the right lung. No evidence of pulmonary embolism.
[2020-10-26 18:54] VITALS: BP 129/94; PULSE 97; TEMP 100
== END 2020-10-26 18:53 | disposition home or self-care (01) ==
LOC: EC 15:51
DX: U07.1 COVID-19 (principal); J12.89 Other viral pneumonia; M79.7 Fibromyalgia; K50.90 Crohn's disease, unspecified, without complications; Z79.51 Long term (current) use of inhaled steroids; Z79.899 Other long term (current) drug therapy; Z91.040 Latex allergy status
CPT/HCPCS: 36415; 94640; 93005; 85379; 83880; 80053; 83605; 83735; 84484; 85025; 85610; 85730; 71275; 99285; 96360; Q9967

== ENCOUNTER → 2020-10-31 | Outpatient (CLI) | payer BC ==
--- NOTE | 2020-10-31 15:59 | XR ---
EXAMINATION TYPE: XR chest 2V DATE OF EXAM: 10/31/2020 COMPARISON: Chest x-ray 10/23/2020 HISTORY: Pneumonia covid-19, U07.1 TECHNIQUE: Frontal and lateral views of the chest are obtained. FINDINGS: There is patchy density at the right lung base, right middle lobe. The cardiac silhouette size is within normal limits. The osseous structures are intact. IMPRESSION: Correlate for pneumonia.
== END | disposition home or self-care (01) ==
LOC: RADXRMAIN 15:39
DX: J12.89 Other viral pneumonia (principal); Z20.828 Contact with and (suspected) exposure to other viral communicable diseases
CPT/HCPCS: 71046

== ENCOUNTER 2020-11-05 14:14 | Inpatient (IN) | payer BC ==
--- NOTE | 2020-11-05 15:02 | ED ---
SOB HPI - General Chief Complaint: Shortness of Breath Stated Complaint: SOB Time Seen by Provider: 11/05/20 14:30 Source: patient Mode of arrival: ambulatory Limitations: no limitations - History of Present Illness Initial Comments: 40-year-old female patient presents to the emergency department today for evaluation of increased shortness of breath. Patient states she was diagnosed with COVID-19 3 weeks ago. States that she feels her breathing and lungs are getting worse. States that she has a persistent cough. States her other symptoms have decreased but her respiratory symptoms are worse and persistent. States she occasionally has low oxygen saturations around 92%. She does have a history of Crohn's disease and does take Remicade. States that she has seen both her primary care and her heel seam rubber to both believe she needs to be admitted to the hospital. States she has had repeated chest x-rays showing worsening pneumonia. States she has completed steroid and azithromycin. Patient denies any recent rash, fever, chills, abdominal pain, nausea, vomiting, diarrhea, constipation, back pain, numbness, tingling, dizziness, weakness, hematuria, dysuria, urinary urgency, urinary frequency, headache, visual changes, or any other complaints. - Related Data Home Medications Medication Instructions Recorded Confirmed inFLIXimab [Remicade] 500 mg IVPB Q42D 07/02/16 11/05/20 Fluticasone Nasal [place] [Flonase 1 spray INTRANASAL HS 05/23/19 11/05/20 Nasal [place]] Albuterol Sulfate [Proair Hfa] 2 puff INHALATION RT-Q4H PRN 10/23/20 11/05/20 DULoxetine HCL [Cymbalta] 60 mg PO HS 10/23/20 11/05/20 Lifitegrast [Xiidra] 1 drop BOTH EYES HS 10/23/20 11/05/20 Cholecalciferol [Vitamin D3 (25 1,000 unit PO HS 11/05/20 11/05/20 Mcg = 1000 Iu)] Zinc 50 mg PO HS 11/05/20 11/05/20 guaiFENesin [Mucinex] 1,200 mg PO BID 11/05/20 11/05/20 Allergies Allergy/AdvReac Type Severity Reaction Status Date / Time latex Allergy Rash/Hives Verified 11/05/20 17:22 Review of Systems ROS Statement: Those systems with pertinent positive or pertinent negative responses have been documented in the HPI. ROS Other: All systems not noted in ROS Statement are negative. Past Medical History Past Medical History: Fibromyalgia, Pneumonia Additional Past Medical History / Comment(s): chrohn's disease/ hypogylcemia gestational dm. BRONCHITIS. History of Any Multi-Drug Resistant Organisms: None Reported Past Surgical History: Hysterectomy, Tubal Ligation Additional Past Surgical History / Comment(s): colonoscopy Past Anesthesia/Blood Transfusion Reactions: No Reported Reaction Additional Past Anesthesia/Blood Transfusion Reaction / Comment(s): took a while to come out Past Psychological History: No Psychological Hx Reported Smoking Status: Never smoker Past Alcohol Use History: None Reported Past Drug Use History: None Reported - Past Family History Mother Family Medical History: No Reported History General Exam Limitations: no limitations General appearance: alert, in no apparent distress, other (This is a well- developed, well-nourished adult female patient in no acute distress. Vital signs upon presentation are temperature 98.4F, pulse 80, respirations 18, blood pressure 129/79, pulse ox 100% on room air.) ENT exam: Present: normal exam, normal oropharynx, mucous membranes moist Respiratory exam: Present: normal lung sounds bilaterally. Absent: respiratory distress, wheezes, rales, rhonchi, stridor Cardiovascular Exam: Present: regular rate, normal rhythm, normal heart sounds. Absent: systolic murmur, diastolic murmur, rubs, gallop, clicks GI/Abdominal exam: Present: soft, normal bowel sounds. Absent: distended, tenderness, guarding, rebound, rigid Neurological exam: Present: alert, oriented X3, CN II-XII intact Psychiatric exam: Present: normal affect, normal mood Skin exam: Present: warm, dry, intact, normal color. Absent: rash Course Vital Signs 11/05/20 11/05/20 11/05/20 14:16 16:18 17:22 Temperature 98.4 F 97.1 F L Pulse Rate 80 78 Respiratory 18 18 16 Rate Blood Pressure 129/79 119/70 O2 Sat by Pulse 100 99 Oximetry 11/05/20 17:49 Temperature 97.1 F L Pulse Rate 82 Respiratory 16 Rate Blood Pressure 119/70 O2 Sat by Pulse 99 Oximetry Medical Decision Making - Medical Decision Making 40-year-old female patient presented to the emergency department today reporting increased chest pain, shortness of breath, cough. Diagnosed with COVID-19 3 weeks ago. She has completed azithromycin and a steroid regimen without relief. She does have a history of Crohn's and is immunosuppressed with Remicade so her physicians were concerned and wanted to have her admitted for further evaluation. Labs reviewed and are relatively unremarkable. D-dimer 0.59, LDH mildly elevated at 765, CRP negative. Chest x-ray did show persistent pneumonia. Dr. Godfrey was contacted we will start dexamethasone and vitamins. She'll be admitted for further evaluation. Patient is agreeable. - Lab Data Result diagrams: 11/05/20 15:18 11/05/20 15:18 Lab Results 11/05/20 11/05/20 11/05/20 Range/Units 15:18 15:18 15:18 WBC 8.6 (3.8-10.6) k/uL RBC 5.01 (3.80-5.40) m/uL Hgb 15.4 (11.4-16.0) gm/dL Hct 44.8 (34.0-46.0) % MCV 89.4 (80.0-100.0) fL MCH 30.7 (25.0-35.0) pg MCHC 34.3 (31.0-37.0) g/dL RDW 12.4 (11.5-15.5) % Plt Count 288 (150-450) k/uL MPV 7.6 Neutrophils % 58 % Lymphocytes % 32 % Monocytes % 5 % Eosinophils % 2 % Basophils % 1 % Neutrophils # 4.9 (1.3-7.7) k/uL Lymphocytes # 2.8 (1.0-4.8) k/uL Monocytes # 0.5 (0-1.0) k/uL Eosinophils # 0.2 (0-0.7) k/uL Basophils # 0.1 (0-0.2) k/uL PT 9.5 (9.0-12.0) sec INR 0.9 (<1.2) APTT 21.9 L (22.0-30.0) sec D-Dimer 0.59 (<0.60) mg/L FEU Sodium 139 (137-145) mmol/L Potassium 4.7 (3.5-5.1) mmol/L Chloride 108 H (98-107) mmol/L Carbon Dioxide 25 (22-30) mmol/L Anion Gap 6 mmol/L BUN 11 (7-17) mg/dL Creatinine 0.64 (0.52-1.04) mg/dL Est GFR (CKD-EPI)AfAm >90 (>60 ml/min/1.73 sqM) Est GFR (CKD-EPI)NonAf >90 (>60 ml/min/1.73 sqM) Glucose 125 H (74-99) mg/dL Plasma Lactic Acid Richard (0.7-2.0) mmol/L Calcium 8.9 (8.4-10.2) mg/dL Magnesium 2.1 (1.6-2.3) mg/dL Total Bilirubin 0.7 (0.2-1.3) mg/dL AST 39 H (14-36) U/L ALT 36 H (4-34) U/L Alkaline Phosphatase 47 (38-126) U/L Lactate Dehydrogenase 765 H (313-618) U/L C-Reactive Protein 5.8 (<10.0) mg/L Total Protein 7.1 (6.3-8.2) g/dL Albumin 3.7 (3.5-5.0) g/dL 11/05/20 Range/Units 15:18 WBC (3.8-10.6) k/uL RBC (3.80-5.40) m/uL Hgb (11.4-16.0) gm/dL Hct (34.0-46.0) % MCV (80.0-100.0) fL MCH (25.0-35.0) pg MCHC (31.0-37.0) g/dL RDW (11.5-15.5) % Plt Count (150-450) k/uL MPV Neutrophils % % Lymphocytes % % Monocytes % % Eosinophils % % Basophils % % Neutrophils # (1.3-7.7) k/uL Lymphocytes # (1.0-4.8) k/uL Monocytes # (0-1.0) k/uL Eosinophils # (0-0.7) k/uL Basophils # (0-0.2) k/uL PT (9.0-12.0) sec INR (<1.2) APTT (22.0-30.0) sec D-Dimer (<0.60) mg/L FEU Sodium (137-145) mmol/L Potassium (3.5-5.1) mmol/L Chloride (98-107) mmol/L Carbon Dioxide (22-30) mmol/L Anion Gap mmol/L BUN (7-17) mg/dL Creatinine (0.52-1.04) mg/dL Est GFR (CKD-EPI)AfAm (>60 ml/min/1.73 sqM) Est GFR (CKD-EPI)NonAf (>60 ml/min/1.73 sqM) Glucose (74-99) mg/dL Plasma Lactic Acid Richard 1.3 (0.7-2.0) mmol/L Calcium (8.4-10.2) mg/dL Magnesium (1.6-2.3) mg/dL Total Bilirubin (0.2-1.3) mg/dL AST (14-36) U/L ALT (4-34) U/L Alkaline Phosphatase (38-126) U/L Lactate Dehydrogenase (313-618) U/L C-Reactive Protein (<10.0) mg/L Total Protein (6.3-8.2) g/dL Albumin (3.5-5.0) g/dL - Radiology Data Radiology results: report reviewed, image reviewed One view portable x-ray was obtained. Report was reviewed in its entirety. Impression by Dr. Moreno shows correlate for pneumonia Disposition Clinical Impression: COVID-19, Shortness of breath Disposition: ADMITTED IP TO THIS [facility] Condition: Serious Decision to Admit Reason: Admit from EC Decision Date: 11/05/20 Decision Time: 16:31
[2020-11-05 15:29] LABS: Basophils # (A) 0.1 k/uL (0-0.2); Basophils % (A) 1 %; Eosinophils # (A) 0.2 k/uL (0-0.7); Eosinophils % (A) 2 %; HCT 44.8 % (34.0-46.0); HGB 15.4 gm/dL (11.4-16.0); Lymphocytes # (A) 2.8 k/uL (1.0-4.8); Lymphocytes % (A) 32 %; MCH 30.7 pg (25.0-35.0); MCHC 34.3 g/dL (31.0-37.0); MCV 89.4 fL (80.0-100.0); Mean Platelet Volume 7.6; Monocytes # (A) 0.5 k/uL (0-1.0); Monocytes % (A) 5 %; Neutrophils # (A) 4.9 k/uL (1.3-7.7); Neutrophils % (A) 58 %; Platelet Count 288 k/uL (150-450); RBC 5.01 m/uL (3.80-5.40); RDW 12.4 % (11.5-15.5); WBC 8.6 k/uL (3.8-10.6)
--- NOTE | 2020-11-05 15:35 | XR ---
EXAMINATION TYPE: XR chest 1V portable DATE OF EXAM: 11/05/2020 COMPARISON: chest x-ray 10/31/2020 HISTORY: Shortness of breath, suspected Covid 19 pneumonia TECHNIQUE: Single frontal view of the chest is obtained. FINDINGS: Patchy density is again noted at the right lung base, right middle lobe. No evident pneumo thorax or pleural effusion. Cardiac mediastinal silhouette is stable. Patient is rotated. IMPRESSION: Correlate for pneumonia.
[2020-11-05 15:36] LABS: Chloride 108 mmol/L (98-107)
[2020-11-05 15:40] LABS: ALT 36 U/L (4-34); AST 39 U/L (14-36); African American GFR (CKD) >90 (>60 ml/min/1.73 sqM); Albumin 3.7 g/dL (3.5-5.0); Alkaline Phosphatase 47 U/L (38-126); Anion Gap 6 mmol/L; Blood Urea Nitrogen 11 mg/dL (7-17); C Reactive Protein 5.8 mg/L (<10.0); Calcium 8.9 mg/dL (8.4-10.2); Carbon Dioxide 25 mmol/L (22-30); Glucose 125 mg/dL (74-99); LDH 765 U/L (313-618); Magnesium 2.1 mg/dL (1.6-2.3); Non-African American GFR(CKD) >90 (>60 ml/min/1.73 sqM); Potassium 4.7 mmol/L (3.5-5.1); Sodium 139 mmol/L (137-145); Total Bilirubin 0.7 mg/dL (0.2-1.3); Total Protein 7.1 g/dL (6.3-8.2)
[2020-11-05 15:57] LABS: D-Dimer 0.59 mg/L FEU (<0.60); INR 0.9 (<1.2); Prothrombin Time 9.5 sec (9.0-12.0)
[2020-11-05 16:03] LABS: Partial Thromboplastin Time 21.9 sec (22.0-30.0)
[2020-11-05] MEDS ORDERED: ONDANSETRON 4 MG/2 ML VIAL IVP PRN (16:27)
[2020-11-05] MEDS ORDERED: NALOXONE 0.4 MG/ML 1 ML VIAL IV PRN (16:27)
[2020-11-05] MEDS ORDERED: ENOXAPARIN 40 MG/0.4 ML SYRINGE SQ SCH (18:00)
[2020-11-05] MEDS: ACETAMINOPHEN TAB 325 MG TAB PO PRN (21:58)
[2020-11-06 00:41] LABS: Ferritin 120.6 ng/mL (10.0-291.0)
[2020-11-06] MEDS: MELATONIN 5 MG TABLET PO SCH ×2 (01:01→22:05)
[2020-11-06] MEDS: ACETAMINOPHEN TAB 325 MG TAB PO PRN (08:45)
[2020-11-06] MEDS: ASCORBIC ACID 500 MG TAB PO SCH (08:45)
[2020-11-06] MEDS: CHOLECALCIFEROL 400 UNIT TAB PO SCH (08:45)
[2020-11-06] MEDS: ZINC SULFATE 220 MG CAP PO SCH (08:45)
[2020-11-06] MEDS: DEXAMETHASONE SOD PHOSPHATE 10 MG/ML 1 ML VIAL IV SCH (08:46)
--- NOTE | 2020-11-06 13:32 | P.HPIM ---
History of Present Illness H&P Date: 11/06/20 Chief Complaint: Shortness of breath progressive with cough Patient has a history of Crohn's disease, she had a cold with 19 infection 3 weeks ago she recovered from it but however a week ago started having cough congestion shortness of breath outpatient chest x-ray revealed presence of pneumonia she has a treatment of the oral steroids and Zithromax without any significant improvement decided to come into emergency department, shouldn't is being treated with broad-spectrum antibiotics along with Decadron and usual therapy for coronary 19 pneumonia Review of Systems All systems: negative Past Medical History Past Medical History: Fibromyalgia, Pneumonia Additional Past Medical History / Comment(s): chrohn's disease/ hypogylcemia gestational dm. BRONCHITIS. History of Any Multi-Drug Resistant Organisms: None Reported Past Surgical History: Hysterectomy, Tubal Ligation Additional Past Surgical History / Comment(s): colonoscopy Past Anesthesia/Blood Transfusion Reactions: No Reported Reaction Additional Past Anesthesia/Blood Transfusion Reaction / Comment(s): took a while to come out Past Psychological History: No Psychological Hx Reported Smoking Status: Never smoker Past Alcohol Use History: None Reported Past Drug Use History: None Reported - Past Family History Mother Family Medical History: No Reported History Medications and Allergies Home Medications Medication Instructions Recorded Confirmed Type inFLIXimab [Remicade] 500 mg IVPB Q42D 07/02/16 11/05/20 History Fluticasone Nasal [place] [Flonase 1 spray INTRANASAL HS 05/23/19 11/05/20 History Nasal [place]] Albuterol Sulfate [Proair Hfa] 2 puff INHALATION RT-Q4H PRN 10/23/20 11/05/20 History DULoxetine HCL [Cymbalta] 60 mg PO HS 10/23/20 11/05/20 History Lifitegrast [Xiidra] 1 drop BOTH EYES HS 10/23/20 11/05/20 History Cholecalciferol [Vitamin D3 (25 1,000 unit PO HS 11/05/20 11/05/20 History Mcg = 1000 Iu)] Zinc 50 mg PO HS 11/05/20 11/05/20 History guaiFENesin [Mucinex] 1,200 mg PO BID 11/05/20 11/05/20 History Allergies Allergy/AdvReac Type Severity Reaction Status Date / Time latex Allergy Rash/Hives Verified 11/05/20 17:22 Physical Exam Vitals: Vital Signs Temp Pulse Pulse Resp BP BP Pulse Ox 11/06/20 09:00 98.4 F 70 16 127/78 97 11/06/20 03:00 98.0 F 76 16 129/78 95 11/05/20 21:00 98.0 F 83 16 143/94 97 11/05/20 17:49 97.1 F L 82 16 119/70 99 11/05/20 17:30 98.5 F 88 18 137/87 97 11/05/20 17:22 97.1 F L 78 16 119/70 99 11/05/20 16:18 18 11/05/20 14:16 98.4 F 80 18 129/79 100 Intake and Output 11/05/20 11/06/20 11/06/20 22:59 06:59 14:59 Intake Total 300 Balance 300 Intake: Intake, IV Titration 50 Amount cefTRIAXone 1 gm In 50 Sodium Chloride 0.9% 50 ml @ 100 mls/hr IVPB Q24HR [facility] Rx#:[id number] Oral 250 Other: # Voids 1 1 2 Weight 102.058 kg - Constitutional General appearance: average body habitus, cooperative - EENT Eyes: EOMI, PERRLA Ears: bilateral: normal - Neck Carotids: bilateral: upstroke normal - Respiratory Respiratory: bilateral: CTA - Cardiovascular Rhythm: regular Heart sounds: normal: S1 - Gastrointestinal General gastrointestinal: decreased bowel sounds - Integumentary Integumentary: normal turgor - Neurologic Neurologic: CNII-XII intact - Musculoskeletal Musculoskeletal: gait normal, generalized weakness, strength equal bilaterally - Psychiatric Psychiatric: A&O x's 3, appropriate affect, intact judgment & insight Results CBC & Chem 7: 11/05/20 15:18 11/05/20 15:18 Labs: Abnormal Lab Results - Last 24 Hours (Table) 11/05/20 11/05/20 Range/Units 15:18 15:18 APTT 21.9 L (22.0-30.0) sec Chloride 108 H (98-107) mmol/L Glucose 125 H (74-99) mg/dL AST 39 H (14-36) U/L ALT 36 H (4-34) U/L Lactate Dehydrogenase 765 H (313-618) U/L Chest x-ray: report reviewed, image reviewed (Noted to have a patchy density in the right middle lobe and right base) Assessment and Plan Assessment: Community-acquired pneumonia Recent covert 19 infection History of Crohn's disease on Remicade Plan: Patient is being admitted into the hospital with IV antibiotics bronchodilators and Decadron will monitor observe clinical course closely Time with Patient: Greater than 30
[2020-11-06] MEDS ORDERED: MELATONIN 5 MG TABLET PO SCH (21:00)
[2020-11-06] MEDS: DULoxetine HCL 60 MG CAPSULE.DR PO SCH (22:04)
[2020-11-06] MEDS: ENOXAPARIN 40 MG/0.4 ML SYRINGE SQ SCH (22:05)
[2020-11-07] MEDS: ACETAMINOPHEN TAB 325 MG TAB PO PRN (04:45)
[2020-11-07] MEDS: CHOLECALCIFEROL 400 UNIT TAB PO SCH (08:28)
[2020-11-07] MEDS: ASCORBIC ACID 500 MG TAB PO SCH (08:28)
[2020-11-07] MEDS: ZINC SULFATE 220 MG CAP PO SCH (08:28)
[2020-11-07] MEDS: DEXAMETHASONE SOD PHOSPHATE 10 MG/ML 1 ML VIAL IV SCH (09:34)
--- NOTE | 2020-11-07 14:11 | XR ---
EXAMINATION TYPE: XR chest 1V portable DATE OF EXAM: 11/07/2020 COMPARISON: 11/05/2020 INDICATION: Short of breath TECHNIQUE: Single frontal view of the chest is obtained. FINDINGS: The heart size is normal. The pulmonary vasculature is normal. Minimal bibasilar scattered infiltrates are present. This is increasing from comparison. IMPRESSION: 1. Local consideration for atypical pneumonia is recommended. Subsegmental atelectasis could be consi dered. Follow-up can be performed as clinically indicated.
--- NOTE | 2020-11-07 14:49 | P.PN ---
Subjective Progress Note Date: 11/07/20 Principal diagnosis: Community-acquired pneumonia Recent covert 19 infection History of Crohn's disease on Remicade 11/07/2020, patient seen eval examined during the rounds labs reviewed medications reviewed respiratory status remains stable, cough congestion slightly better, patient remains on antibiotics we'll check a chest x-ray later on today patient has a history of Crohn's disease, she had a coveid with 19 infection 3 weeks ago she recovered from it but however a week ago started having cough congestion shortness of breath outpatient chest x-ray revealed presence of pneumonia she has a treatment of the oral steroids and Zithromax without any significant improvement decided to come into emergency department, shouldn't is being treated with broad-spectrum antibiotics along with Decadron and usual therapy for coronary 19 pneumonia Objective - Vital Signs Vital signs: Vital Signs Temp 98.4 F 11/07/20 08:19 Pulse 98 11/07/20 08:19 Resp 16 11/07/20 08:23 BP 130/79 11/07/20 08:19 Pulse Ox 94 L 11/07/20 08:19 Intake & Output 11/06/20 11/07/20 11/07/20 18:59 06:59 18:59 Intake Total 700 300 Balance 700 300 Intake: Intake, IV Titration 50 Amount cefTRIAXone 1 gm In 50 Sodium Chloride 0.9% 50 ml @ 100 mls/hr IVPB Q24HR [facility] Rx#:[id number] Oral 650 300 Other: # Voids 3 0 1 - Exam - Constitutional General appearance: average body habitus, cooperative - EENT Eyes: EOMI, PERRLA Ears: bilateral: normal - Neck Carotids: bilateral: upstroke normal - Respiratory Respiratory: bilateral: CTA - Cardiovascular Rhythm: regular Heart sounds: normal: S1 - Gastrointestinal General gastrointestinal: decreased bowel sounds - Integumentary Integumentary: normal turgor - Neurologic Neurologic: CNII-XII intact - Musculoskeletal Musculoskeletal: gait normal, generalized weakness, strength equal bilaterally - Psychiatric Psychiatric: A&O x's 3, appropriate affect, intact judgment & insight - Labs CBC & Chem 7: 11/05/20 15:18 11/05/20 15:18 Labs: Microbiology - Last 24 Hours (Table) 11/05/20 15:18 Blood Culture - Preliminary Blood No Growth after 24 hours 11/05/20 15:18 Blood Culture - Preliminary Blood No Growth after 24 hours Assessment and Plan Assessment: Community-acquired pneumonia Recent covid 19 infection History of Crohn's disease on Remicade Immune suppressed status Plan: Patient to be continued on IV antibiotics bronchodilators and Decadron will monitor observe clinical course closely repeat chest x-ray remains stable possible discharge in next 24 hours Time with Patient: Greater than 30
[2020-11-07] MEDS: DULoxetine HCL 60 MG CAPSULE.DR PO SCH (21:35)
[2020-11-07] MEDS: ENOXAPARIN 40 MG/0.4 ML SYRINGE SQ SCH (21:36)
[2020-11-07] MEDS: MELATONIN 5 MG TABLET PO SCH (21:43)
[2020-11-08 08:33] VITALS: BP 125/82; PULSE 76; RESP 18; TEMP 97.7
[2020-11-08] MEDS: ASCORBIC ACID 500 MG TAB PO SCH (09:48)
[2020-11-08] MEDS: ZINC SULFATE 220 MG CAP PO SCH (09:48)
[2020-11-08] MEDS: CHOLECALCIFEROL 400 UNIT TAB PO SCH (09:48)
[2020-11-08] MEDS: DEXAMETHASONE SOD PHOSPHATE 10 MG/ML 1 ML VIAL IV SCH (09:48)
--- NOTE | 2020-11-08 14:43 | P.DS ---
Providers Date of admission: 11/07/20 09:19 Expected date of discharge: 11/08/20 Attending physician: Yury Padilla Primary care physician: Kayleen Ferrer [facility] Course: 11/08/2020, patient seen eval examined during the rounds labs reviewed m edications reviewed care plan discussed, respiratory status remains stable denies any chest pain shortness of breath, tolerating by mouth well patient will be discharged home on oral neck and drawn antibiotics and continuation of home medications chest x-ray performed yesterday remains stable 11/07/2020, patient seen eval examined during the rounds labs reviewed medications reviewed respiratory status remains stable, cough congestion slightly better, patient remains on antibiotics we'll check a chest x-ray later on today patient has a history of Crohn's disease, she had a coveid with 19 infection 3 weeks ago she recovered from it but however a week ago started having cough congestion shortness of breath outpatient chest x-ray revealed presence of pneumonia she has a treatment of the oral steroids and Zithromax without any significant improvement decided to come into emergency department, shouldn't is being treated with broad-spectrum antibiotics along with Decadron and usual therapy for coronary 19 pneumonia Assessment: Community-acquired pneumonia Recent covid 19 infection History of Crohn's disease on Remicade Immune suppressed status Patient Condition at Discharge: Good Plan - Discharge Summary Discharge Rx Participant: No New Discharge Prescriptions: New Cefuroxime [Ceftin] 250 mg PO BID 3 Days #6 tab Dexamethasone [Decadron] 6 mg PO DAILY #7 tablet Ascorbic Acid [Vitamin C] 1,000 mg PO DAILY #30 tab Continue inFLIXimab [Remicade] 500 mg IVPB Q42D Fluticasone Nasal [place] [Flonase Nasal [place]] 1 spray INTRANASAL HS Lifitegrast [Xiidra] 1 drop BOTH EYES HS DULoxetine HCL [Cymbalta] 60 mg PO HS Albuterol Sulfate [Proair Hfa] 2 puff INHALATION RT-Q4H PRN PRN Reason: Shortness Of Breath guaiFENesin [Mucinex] 1,200 mg PO BID Zinc 50 mg PO HS Cholecalciferol [Vitamin D3 (25 Mcg = 1000 Iu)] 1,000 unit PO HS Discharge Medication List inFLIXimab [Remicade] 500 mg IVPB Q42D 07/02/16 [History] Fluticasone Nasal [place] [Flonase Nasal [place]] 1 spray INTRANASAL HS 05/23/19 [History] Albuterol Sulfate [Proair Hfa] 2 puff INHALATION RT-Q4H PRN 10/23/20 [History] DULoxetine HCL [Cymbalta] 60 mg PO HS 10/23/20 [History] Lifitegrast [Xiidra] 1 drop BOTH EYES HS 10/23/20 [History] Cholecalciferol [Vitamin D3 (25 Mcg = 1000 Iu)] 1,000 unit PO HS 11/05/20 [History] Zinc 50 mg PO HS 11/05/20 [History] guaiFENesin [Mucinex] 1,200 mg PO BID 11/05/20 [History] Ascorbic Acid [Vitamin C] 1,000 mg PO DAILY #30 tab 11/08/20 [Rx] Cefuroxime [Ceftin] 250 mg PO BID 3 Days #6 tab 11/08/20 [Rx] Dexamethasone [Decadron] 6 mg PO DAILY #7 tablet 11/08/20 [Rx] Follow up Appointment(s)/Referral(s): Kayleen Ferrer DO [Primary Care Provider] - 1-2 days Discharge Disposition: HOME SELF-CARE
== END 2020-11-08 16:00 | disposition home or self-care (01) | DRG 194 ==
LOC: EC 14:14 → 1SOBS 16:12 → OBSVTOIN 11-07 09:19
PROVIDERS: ADMIT Internal Medicine Sleep Medicine; ATTEND Internal Medicine Sleep Medicine
DX: J18.9 Pneumonia, unspecified organism (principal); K50.90 Crohn's disease, unspecified, without complications; D84.821 Immunodeficiency due to drugs; M79.7 Fibromyalgia; Z86.19 Personal history of other infectious and parasitic diseases; Z86.32 Personal history of gestational diabetes; Z90.710 Acquired absence of both cervix and uterus; Z87.01 Personal history of pneumonia (recurrent); Z91.040 Latex allergy status; Z98.51 Tubal ligation status; T39.8X5A Adverse effect of other nonopioid analgesics and antipyretics, not elsewhere classified, initial encounter; Z79.899 Other long term (current) drug therapy
CPT/HCPCS: 36415; 71045; 80053; 82728; 83605; 83615; 83735; 84145; 85025; 85379; 85610; 85730; 86140; 86769; 87040; 87635; 93005; 99285

== ENCOUNTER → 2020-12-07 | Outpatient (CLI) | payer BC ==
[2020-12-07 08:44] VITALS: TEMP 98.1
[2020-12-07 10:43] VITALS: BP 119/74; PULSE 83; RESP 18
== END | disposition home or self-care (01) ==
LOC: PROCWHC3 08:22
PROVIDERS: ATTEND Physician Assistant
DX: K50.919 Crohn's disease, unspecified, with unspecified complications (principal)
CPT/HCPCS: 96413; 96415; Q5103

== ENCOUNTER → 2021-01-23 | Outpatient (CLI) | payer BC ==
[2021-01-23 08:41] VITALS: RESP 16; TEMP 97.9
[2021-01-23 09:03] LABS: Basophils % (A) 1 %; Eosinophils # (A) 0.2 k/uL (0-0.7); Eosinophils % (A) 3 %; HCT 46.5 % (34.0-46.0); HGB 15.3 gm/dL (11.4-16.0); Lymphocytes # (A) 1.8 k/uL (1.0-4.8); Lymphocytes % (A) 26 %; MCH 29.7 pg (25.0-35.0); MCHC 32.9 g/dL (31.0-37.0); MCV 90.3 fL (80.0-100.0); Mean Platelet Volume 7.5; Monocytes # (A) 0.3 k/uL (0-1.0); Monocytes % (A) 4 %; Neutrophils # (A) 4.5 k/uL (1.3-7.7); Neutrophils % (A) 65 %; Platelet Count 278 k/uL (150-450); RBC 5.15 m/uL (3.80-5.40); RDW 12.7 % (11.5-15.5); WBC 6.9 k/uL (3.8-10.6)
[2021-01-23 09:15] LABS: African American GFR (CKD) >90 (>60 ml/min/1.73 sqM); Anion Gap 7 mmol/L; Blood Urea Nitrogen 12 mg/dL (7-17); Calcium 9.5 mg/dL (8.4-10.2); Carbon Dioxide 25 mmol/L (22-30); Chloride 107 mmol/L (98-107); Glucose 120 mg/dL (74-99); Non-African American GFR(CKD) >90 (>60 ml/min/1.73 sqM); Potassium 4.2 mmol/L (3.5-5.1); Sodium 139 mmol/L (137-145)
[2021-01-23 10:25] VITALS: BP 115/69; PULSE 77
== END ==
LOC: PROCWHC3 08:33
PROVIDERS: ATTEND Physician Assistant
DX: K50.90 Crohn's disease, unspecified, without complications (principal)
CPT/HCPCS: 80048; 85025; 96413; 96415; 36415; Q5103

== ENCOUNTER → 2021-03-06 | Outpatient (CLI) | payer BC ==
[2021-03-06 10:09] VITALS: RESP 16; TEMP 98.2
[2021-03-06 11:50] VITALS: BP 122/76; PULSE 78
== END | disposition home or self-care (01) ==
LOC: PROCWHC3 09:56
PROVIDERS: ATTEND Physician Assistant
DX: K50.919 Crohn's disease, unspecified, with unspecified complications (principal)
CPT/HCPCS: 96413; 96415; Q5103

== ENCOUNTER → 2021-04-22 | Outpatient (CLI) | payer BC ==
[2021-04-22 10:34] VITALS: TEMP 98.2
[2021-04-22 11:24] VITALS: RESP 16
[2021-04-22 12:01] VITALS: BP 131/66; PULSE 79
== END | disposition home or self-care (01) ==
LOC: PROCWHC3 09:58
PROVIDERS: ATTEND Physician Assistant
DX: K50.919 Crohn's disease, unspecified, with unspecified complications (principal)
CPT/HCPCS: 96365; 96366; Q5103

== ENCOUNTER → 2021-06-04 | Outpatient (CLI) | payer BC ==
[2021-06-04 10:47] VITALS: RESP 16; TEMP 97.5
[2021-06-04 12:25] VITALS: BP 112/72; PULSE 86
== END | disposition home or self-care (01) ==
LOC: PROCWHC3 09:41
PROVIDERS: ATTEND Physician Assistant
DX: K50.919 Crohn's disease, unspecified, with unspecified complications (principal)
CPT/HCPCS: 96413; 96415; Q5103

== ENCOUNTER 2021-07-23 18:18 | Emergency (ER) | payer BC ==
[2021-07-23 18:22] VITALS: RESP 20; TEMP 98.1
--- NOTE | 2021-07-23 19:04 | XR ---
EXAMINATION TYPE: XR chest 2V DATE OF EXAM: 07/23/2021 COMPARISON: 11/07/2020 HISTORY: Cough TECHNIQUE: FINDINGS: Heart and mediastinum are normal. Lungs are clear. Diaphragm is normal. Bony thorax is inta ct. IMPRESSION: Normal chest.
--- NOTE | 2021-07-23 19:19 | ED ---
URI HPI - General Chief Complaint: Upper Respiratory Infection Stated Complaint: possible bronchitis Time Seen by Provider: 07/23/21 18:25 Source: patient, RN notes reviewed Mode of arrival: ambulatory Limitations: no limitations - History of Present Illness Initial Comments: Patient is a 41-year-old female that presents to emergency department complain ing of upper respiratory tract symptoms for the past week to 10 days. She notes that she is immune suppressed and on steroids for a possible diagnosis of multiple sclerosis that she follows up with her neurologist for. She notes that she got Covid lasted about pneumonia in her lungs and not been the same since patient notes that over the last few days her lungs become painful. She notes that this feels a similar the last time she got bronchitis patient notes that she usually gets antibiotics and steroids for these which help. She notes that she is currently on steroids. She denied any other issues or complaints. She denied fevers fatigue chills. She denied chest pendulous breath headache nausea vomiting diarrhea constipation. - Related Data Home Medications Medication Instructions Recorded Confirmed inFLIXimab [Remicade] 500 mg IVPB Q42D 07/02/16 06/04/21 Fluticasone Nasal [place] [Flonase 1 spray INTRANASAL HS 05/23/19 06/04/21 Nasal [place]] Albuterol Sulfate [Proair Hfa] 2 puff INHALATION RT-Q4H PRN 10/23/20 06/04/21 Lifitegrast [Xiidra] 1 drop BOTH EYES HS 10/23/20 06/04/21 Cholecalciferol [Vitamin D3 (25 1,000 unit PO HS 11/05/20 06/04/21 Mcg = 1000 Iu)] Zinc 50 mg PO HS 11/05/20 06/04/21 guaiFENesin [Mucinex] 1,200 mg PO BID 11/05/20 06/04/21 Butalb/APAP/Caff 50-325-40Mg 1 tab PO DIRECTED PRN 06/04/21 06/04/21 [Fioricet 50-325-40] Omeprazole 20 mg PO DAILY 06/04/21 06/04/21 Pregabalin [Lyrica] 75 mg PO DAILY 06/04/21 06/04/21 Previous Rx's Medication Instructions Recorded Ascorbic Acid [Vitamin C] 1,000 mg PO DAILY #30 tab 11/08/20 Cefuroxime [Ceftin] 250 mg PO BID 3 Days #6 tab 11/08/20 Dexamethasone [Decadron] 6 mg PO DAILY #7 tablet 11/08/20 Levofloxacin [Levaquin] 500 mg PO DAILY #10 tab 07/23/21 Allergies Allergy/AdvReac Type Severity Reaction Status Date / Time latex Allergy Rash/Hives Verified 07/23/21 18:22 Review of Systems ROS Statement: Those systems with pertinent positive or pertinent negative responses have been documented in the HPI. ROS Other: All systems not noted in ROS Statement are negative. Past Medical History Past Medical History: Asthma, Fibromyalgia, Pneumonia Additional Past Medical History / Comment(s): chrohn's disease/ hypogylcemia gestational dm. BRONCHITIS. covid 10/28 History of Any Multi-Drug Resistant Organisms: None Reported Past Surgical History: Hysterectomy, Tubal Ligation Additional Past Surgical History / Comment(s): colonoscopy Past Anesthesia/Blood Transfusion Reactions: No Reported Reaction Additional Past Anesthesia/Blood Transfusion Reaction / Comment(s): took a while to come out Past Psychological History: No Psychological Hx Reported Smoking Status: Never smoker Past Alcohol Use History: None Reported Past Drug Use History: None Reported - Past Family History Mother Family Medical History: No Reported History General Exam Limitations: no limitations General appearance: alert, in no apparent distress, obese Head exam: Present: atraumatic, normocephalic, normal inspection Eye exam: Present: normal appearance, PERRL, EOMI. Absent: scleral icterus, conjunctival injection, periorbital swelling Neck exam: Present: normal inspection Respiratory exam: Present: normal lung sounds bilaterally. Absent: respiratory distress, wheezes, rales, rhonchi, stridor Cardiovascular Exam: Present: regular rate, normal rhythm, normal heart sounds. Absent: systolic murmur, diastolic murmur, rubs, gallop, clicks Extremities exam: Present: normal inspection, full ROM, normal capillary refill. Absent: tenderness, pedal edema, joint swelling, calf tenderness Neurological exam: Present: alert, oriented X3 Psychiatric exam: Present: normal affect, normal mood Skin exam: Present: warm, dry, intact, normal color. Absent: rash Course Vital Signs 07/23/21 18:19 Temperature 98.1 F Pulse Rate 77 Respiratory 20 Rate Blood Pressure 135/87 O2 Sat by Pulse 96 Oximetry Medical Decision Making - Medical Decision Making 41-year-old female complaining of upper respiratory tract symptoms for the last 7-10 days. Chest x-ray, Covid test ordered. Chest x-ray negative for any acute process. Covid test negative. Case discussed with Dr. Mcconnell, patient can discharge home with follow-up primary care. - Lab Data Lab Results 07/23/21 Range/Units 18:37 Coronavirus (PCR) Not Detected (Not Detectd) Disposition Clinical Impression: Upper respiratory tract infection Disposition: HOME SELF-CARE Condition: Stable Instructions (If sedation given, give patient instructions): Upper Respiratory Infection (ED) Additional Instructions: Please return to the Emergency Department if symptoms worsen or any other c oncerns. Follow-up with primary care. Take antibiotics as prescribed. Is patient prescribed a controlled substance at d/c from ED?: No Referrals: Kayleen Ferrer DO [Primary Care Provider] - 1-2 days Time of Disposition: 19:19
[2021-07-23 19:36] VITALS: BP 137/91; PULSE 72
== END 2021-07-23 19:36 | disposition home or self-care (01) ==
LOC: EC 18:18
DX: J06.9 Acute upper respiratory infection, unspecified (principal); M79.7 Fibromyalgia; J45.909 Unspecified asthma, uncomplicated; Z20.822 Contact with and (suspected) exposure to COVID-19; Z86.16 Personal history of COVID-19; Z91.040 Latex allergy status; Z79.899 Other long term (current) drug therapy
CPT/HCPCS: 71046; 87635

== ENCOUNTER → 2021-07-30 | Outpatient (CLI) | payer BC ==
[2021-07-30 10:57] VITALS: RESP 16
[2021-07-30 10:59] LABS: HGB 15.2 gm/dL (11.4-16.0); MCH 30.4 pg (25.0-35.0); MCV 92.2 fL (80.0-100.0); Mean Platelet Volume 7.2; Platelet Count 328 k/uL (150-450); RBC 4.99 m/uL (3.80-5.40); RDW 12.6 % (11.5-15.5); WBC 17.1 k/uL (3.8-10.6)
[2021-07-30 11:31] LABS: ALT 24 U/L (4-34); AST 21 U/L (14-36); African American GFR (CKD) >90 (>60 ml/min/1.73 sqM); Albumin 3.7 g/dL (3.5-5.0); Alkaline Phosphatase 62 U/L (38-126); Anion Gap 6 mmol/L; Blood Urea Nitrogen 17 mg/dL (7-17); C Reactive Protein 2.1 mg/dL (<1.0); Calcium 9.5 mg/dL (8.4-10.2); Carbon Dioxide 26 mmol/L (22-30); Chloride 104 mmol/L (98-107); Glucose 107 mg/dL (74-99); Non-African American GFR(CKD) 90 (>60 ml/min/1.73 sqM); Potassium 4.5 mmol/L (3.5-5.1); Sodium 136 mmol/L (137-145); Total Bilirubin 0.4 mg/dL (0.2-1.3); Total Protein 6.7 g/dL (6.3-8.2)
[2021-07-30 12:21] VITALS: BP 116/79; PULSE 82
[2021-07-30 12:56] LABS: Erythrocyte Sedimentation Rate 2 mm/hr (0-20)
== END | disposition home or self-care (01) ==
LOC: PROCWHC3 10:22
PROVIDERS: ATTEND Physician Assistant
DX: K50.90 Crohn's disease, unspecified, without complications (principal)
CPT/HCPCS: 80053; 85652; 85027; 86140; 86480; 96413; 96415; 36415; Q5103

== ENCOUNTER → 2021-09-25 | Outpatient (CLI) | payer BC ==
[2021-09-25 12:06] VITALS: RESP 16; TEMP 98
[2021-09-25 12:52] VITALS: PULSE 85
[2021-09-25 13:42] VITALS: BP 104/70
== END ==
LOC: PROCWHC3 11:50
PROVIDERS: ATTEND Physician Assistant
DX: K50.90 Crohn's disease, unspecified, without complications (principal); Z91.040 Latex allergy status
CPT/HCPCS: 96413; 96415; Q5103

== ENCOUNTER → 2021-11-20 | Outpatient (CLI) | payer BC ==
--- NOTE | 2021-11-21 14:58 | MM ---
Reason for exam: screening (asymptomatic). Last mammogram was performed 1 year and 1 month ago. History: Family history of breast cancer in mother. Took other hormone for 2 months. Physical Findings: A clinical breast exam by your physician is recommended on an annual basis and results should be correlated with mammographic findings. MG 3D Screening Mammo W/Cad Bilateral CC and MLO view(s) were taken. Prior study comparison: October 15, 2020, bilateral MG 3d screening mammo w/cad. August 22, 2019, bilateral MG 3d screening mammo w/cad. The breast tissue is heterogeneously dense. This may lower the sensitivity of mammography. There is no discrete abnormality. ASSESSMENT: Negative, BI-RAD 1 RECOMMENDATION: Routine screening mammogram of both breasts in 1 year.
== END | disposition home or self-care (01) ==
LOC: RADMAMWWP 08:37
PROVIDERS: ATTEND Obstetrics & Gynecology
DX: Z12.31 Encounter for screening mammogram for malignant neoplasm of breast (principal); Z80.3 Family history of malignant neoplasm of breast
CPT/HCPCS: 77063; 77067

== ENCOUNTER → 2021-12-05 | Outpatient (CLI) | payer BC ==
[2021-12-05 08:44] VITALS: RESP 16; TEMP 98.1
[2021-12-05 10:12] VITALS: BP 101/58; PULSE 75
== END | disposition home or self-care (01) ==
LOC: PROCWHC3 08:10
PROVIDERS: ATTEND Physician Assistant
DX: K50.919 Crohn's disease, unspecified, with unspecified complications (principal)
CPT/HCPCS: 96413; 96415; Q5103

== ENCOUNTER → 2022-01-29 | Outpatient (CLI) | payer BC ==
[2022-01-29 08:30] VITALS: RESP 16; TEMP 97.9
[2022-01-29 09:55] VITALS: BP 138/79; PULSE 73
== END | disposition home or self-care (01) ==
LOC: PROCWHC3 08:12
PROVIDERS: ATTEND Physician Assistant
DX: K50.919 Crohn's disease, unspecified, with unspecified complications (principal)
CPT/HCPCS: 96413; 96415; Q5103

== ENCOUNTER → 2022-05-07 | Outpatient (CLI) | payer BC ==
[2022-05-07 11:00] VITALS: TEMP 98.1
[2022-05-07 11:37] VITALS: RESP 16
[2022-05-07 12:13] VITALS: BP 110/68; PULSE 77
== END | disposition home or self-care (01) ==
LOC: PROCWHC3 10:46
PROVIDERS: ATTEND Physician Assistant
DX: K50.919 Crohn's disease, unspecified, with unspecified complications (principal)
CPT/HCPCS: 96413; 96415; Q5103

== ENCOUNTER → 2022-06-25 | Outpatient (CLI) | payer BC ==
[2022-06-25 11:22] VITALS: TEMP 98.1
[2022-06-25 12:10] VITALS: RESP 16
[2022-06-25 12:57] VITALS: BP 142/82; PULSE 72
== END | disposition home or self-care (01) ==
LOC: PROCWHC3 10:51
PROVIDERS: ATTEND Internal Medicine Gastroenterology
DX: K50.919 Crohn's disease, unspecified, with unspecified complications (principal)
CPT/HCPCS: 96413; 96415; Q5103

== ENCOUNTER → 2022-08-08 | Outpatient (CLI) | payer BC ==
[2022-08-08 10:47] VITALS: TEMP 98.7
[2022-08-08 12:25] VITALS: BP 101/67; PULSE 66; RESP 15
== END | disposition home or self-care (01) ==
LOC: PROCWHC3 10:31
PROVIDERS: ATTEND Internal Medicine Gastroenterology
DX: K50.919 Crohn's disease, unspecified, with unspecified complications (principal)
CPT/HCPCS: 96413; 96415; Q5103

== ENCOUNTER → 2022-09-23 | Outpatient (CLI) | payer BC ==
[~2022-09-23] MED LIST changes: +INFLIXIMAB-DYYB 600 MG in SODIUM CHLORIDE 0.9% 190 ML IV NR; -INFLIXIMAB-DYYB 600 MG in SODIUM CHLORIDE 0.9% 250 ML IV NR
[2022-09-23 09:23] VITALS: RESP 16; TEMP 98.1
[2022-09-23 10:49] VITALS: BP 116/75; PULSE 71
== END ==
LOC: PROCWHC3 09:12
PROVIDERS: ATTEND Internal Medicine Gastroenterology
DX: K50.919 Crohn's disease, unspecified, with unspecified complications (principal); Z91.040 Latex allergy status
CPT/HCPCS: 96413; 96415; Q5103

== ENCOUNTER → 2022-11-11 | Outpatient (CLI) | payer BC ==
[2022-11-11 09:27] VITALS: RESP 16; TEMP 97.9
[2022-11-11 11:04] VITALS: BP 125/82; PULSE 85
== END ==
LOC: PROCWHC3 09:16
PROVIDERS: ATTEND Internal Medicine Gastroenterology
DX: K50.919 Crohn's disease, unspecified, with unspecified complications (principal); Z91.040 Latex allergy status
CPT/HCPCS: 96413; 96415; Q5103

== ENCOUNTER 2022-11-23 16:06 | Emergency (ER) | payer BC ==
[2022-11-23 16:10] VITALS: PULSE 79; TEMP 98
--- NOTE | 2022-11-23 16:42 | ED ---
Chest Pain HPI - General Chief Complaint: Chest Pain Stated Complaint: chest pressure Time Seen by Provider: 11/23/22 16:17 Source: patient Mode of arrival: ambulatory Limitations: no limitations - History of Present Illness Initial Comments: This patient is a 42-year-old woman who presents to have evaluation of an episode of chest pain that developed approximately 24 hours ago. The patient states she had gone her usual workout at the gym. She was exercising on treadmill. She states about 2 km into the workout she noticed that there was a chest tight or pressure feeling upper chest. She did not note worsening or relieving factors. No associated symptoms. She states that the pain did resolve after she stopped. She has not had further episodes pain since that time. She states she had been telling family members about this and they recommended she be seen. Patient does note that she has had recent episodes of palpitations and that her physician had her complete a Holter monitor and she also had echocardiogram. MD Complaint: chest pain Onset/Timin -: hour(s) Onset: during exertion Pain Location: left chest Pain Radiation: none Severity: moderate Quality: heaviness Consistency: now resolved Improves With: nothing Worsens With: nothing Treatments Prior to Arrival: none - Related Data Home Medications Medication Instructions Recorded Confirmed inFLIXimab [Remicade] 500 mg IVPB Q42D 07/02/16 11/11/22 Fluticasone Nasal [place] [Flonase 1 spray INTRANASAL HS 05/23/19 11/11/22 Nasal [place]] Albuterol Sulfate [Proair Hfa] 2 puff INHALATION RT-Q4H PRN 10/23/20 11/11/22 Lifitegrast [Xiidra] 1 drop BOTH EYES HS 10/23/20 11/11/22 Cholecalciferol [Vitamin D3 (25 1,000 unit PO HS 11/05/20 11/11/22 Mcg = 1000 Iu)] Zinc 50 mg PO HS 11/05/20 11/11/22 guaiFENesin [Mucinex] 1,200 mg PO BID 11/05/20 11/11/22 Butalb/APAP/Caff 50-325-40Mg 1 tab PO DIRECTED PRN 06/04/21 11/11/22 [Fioricet 50-325-40] Omeprazole 20 mg PO DAILY 06/04/21 11/11/22 Pregabalin [Lyrica] 75 mg PO DAILY 06/04/21 11/11/22 Previous Rx's Medication Instructions Recorded Ascorbic Acid [Vitamin C] 1,000 mg PO DAILY #30 tab 11/08/20 Cefuroxime [Ceftin] 250 mg PO BID 3 Days #6 tab 11/08/20 Allergies Allergy/AdvReac Type Severity Reaction Status Date / Time latex Allergy Rash/Hives Verified 11/23/22 16:10 Review of Systems ROS Statement: Those systems with pertinent positive or pertinent negative responses have been documented in the HPI. ROS Other: All systems not noted in ROS Statement are negative. Constitutional: Denies: fever, chills Respiratory: Denies: cough, dyspnea Cardiovascular: Reports: as per HPI, chest pain, palpitations. Denies: orthopnea, edema, syncope Gastrointestinal: Denies: abdominal pain, nausea, vomiting Genitourinary: Denies: dysuria, hematuria Musculoskeletal: Denies: back pain Skin: Denies: rash Neurological: Denies: headache, weakness EKG Findings - EKG Results: EKG: interpreted by FARZANEH, sinus rhythm (Rate 73 bpm), normal axis, normal ST/T - Blocks, Fleming, Hypertrophy, ST Abn: AV and intraventricular conduction: intraventricular conduction delay Past Medical History Past Medical History: Asthma, Fibromyalgia, Pneumonia Additional Past Medical History / Comment(s): chrohn's disease/ hypogylcemia gestational dm. BRONCHITIS. covid 10/28 History of Any Multi-Drug Resistant Organisms: None Reported Past Surgical History: Hysterectomy, Tubal Ligation Additional Past Surgical History / Comment(s): colonoscopy Past Anesthesia/Blood Transfusion Reactions: No Reported Reaction Additional Past Anesthesia/Blood Transfusion Reaction / Comment(s): took a while to come out Past Psychological History: No Psychological Hx Reported Smoking Status: Never smoker Past Alcohol Use History: None Reported Past Drug Use History: None Reported - Past Family History Mother Family Medical History: No Reported History General Exam Limitations: no limitations General appearance: alert, in no apparent distress Head exam: Present: atraumatic, normocephalic Eye exam: Present: normal appearance. Absent: scleral icterus, conjunctival injection Neck exam: Present: normal inspection Respiratory exam: Present: normal lung sounds bilaterally. Absent: respiratory distress, wheezes, rales, rhonchi, stridor, chest wall tenderness, accessory muscle use Cardiovascular Exam: Present: regular rate, normal rhythm, normal heart sounds. Absent: systolic murmur, diastolic murmur, rubs, gallop GI/Abdominal exam: Present: soft. Absent: distended, tenderness, guarding, rebound, rigid, mass Extremities exam: Present: normal inspection, normal capillary refill. Absent: pedal edema, calf tenderness Back exam: Present: normal inspection. Absent: CVA tenderness (R), CVA tenderness (L) Neurological exam: Present: alert Skin exam: Present: warm, dry, intact, normal color. Absent: rash Course Vital Signs 11/23/22 11/23/22 16:07 17:50 Temperature 98 F Pulse Rate 79 79 Respiratory 20 18 Rate Blood Pressure 147/98 151/85 O2 Sat by Pulse 97 96 Oximetry Chest Pain [facility] Patient is a 42-year-old woman with episode of chest pain proximally 24 hours ago now. She has not had further symptoms and all symptoms are resolved. I interpreted the chest x-ray as showing no cardiomegaly, pulmonary congestion or infiltrate. Remainder of workup is normal. We discussed appropriate further care and follow-up with copy chief including arranging stress test. She will return should any symptoms recur or if any new symptoms develop. Was pt. sent in by a medical professional or institution? @ -No Did you speak to anyone other than the patient for history? @ -No Did you review nursing and triage notes? @ -[agree Were old charts reviewed? @ -[No Differential Diagnosis? @ -Differential Chest Pain: Stable Angina, Unstable Angina, STEMI, NSTEMI Aortic Dissection, Pneumothorax, Musculoskeletal, Esophageal Spasm GERD, Cholecystitis, Pancreatitis, Zoster, this is not meant to be an all-inclusive list. EKG interpreted by me (3pts min.)? @ -[See chart X-rays interpreted by me (1pt min.)? @ -[See chart CT interpreted by me (1pt min.)? @ -[none] U/S interpreted by me (1pt. min.)? @ -[none] What testing was considered but not performed? (CT, X-rays, U/S, labs)? Why? @ [No What meds were considered but not given? Why? @ -[none] Did you discuss the management of the patient with other professionals? @ -[No Did you reconcile home meds? @ -[none] Was smoking cessation discussed for >3mins.? @ -[none] Was critical care preformed (if so, how long)? @ -[none] Were there social determinants of health that impacted care today? How? (Homelessness, low income, unemployed, alcoholism, drug addiction, transportation, low edu. Level, literacy, decrease access to med. care, [place] [facility], rehab)? @ -[None Was there de-escalation of care discussed even if they declined? (Discuss DNR or withdrawal of care, Hospice)? @ -[No What co-morbidities impacted this encounter? (DM, HTN, Smoking, COPD, CAD, Cancer, CVA, Hep., AIDS, mental health diagnosis, sleep apnea, morbid obesity)? @ -[None Was patient admitted / discharged? @ -[Discharged Undiagnosed new problem with uncertain prognosis? @ -[none] Drug Therapy requiring intensive monitoring for toxicity (Heparin, Nitro, Insulin, Cardizem)? @ -[none] Were any procedures done? @ -[none] Diagnosis/symptom? @ -[Acute chest pain, resolved, unconjugated Acute, or Chronic, or Acute on Chronic? @ -[default] Uncomplicated (without systemic symptoms) or Complicated (systemic symptoms)? @ -[default] Side effects of treatment? @ -[none] Exacerbation, Progression, or Severe Exacerbation] @ -[no] Poses a threat to life or bodily function? @ -[no] Disposition Clinical Impression: Chest pain Disposition: HOME SELF-CARE Condition: Good Instructions (If sedation given, give patient instructions): Chest Pain (ED) Is patient prescribed a controlled substance at d/c from ED?: No Referrals: Chidi Perez MD [Primary Care Provider] - 1-2 days
[2022-11-23 16:56] LABS: Basophils # (A) 0.1 k/uL (0-0.2); Basophils % (A) 1 %; Eosinophils # (A) 0.2 k/uL (0-0.7); Eosinophils % (A) 2 %; HGB 14.8 gm/dL (11.4-16.0); Lymphocytes # (A) 3.2 k/uL (1.0-4.8); Lymphocytes % (A) 31 %; MCH 29.9 pg (25.0-35.0); MCV 90.6 fL (80.0-100.0); Mean Platelet Volume 8.2; Monocytes # (A) 0.4 k/uL (0-1.0); Monocytes % (A) 4 %; Neutrophils # (A) 6.2 k/uL (1.3-7.7); Neutrophils % (A) 61 %; Platelet Count 254 k/uL (150-450); RBC 4.96 m/uL (3.80-5.40); RDW 12.7 % (11.5-15.5); WBC 10.1 k/uL (3.8-10.6)
--- NOTE | 2022-11-23 16:59 | XR ---
EXAMINATION TYPE: XR chest 2V DATE OF EXAM: 11/23/2022 COMPARISON: 07/23/2021 HISTORY: Chest pain TECHNIQUE: 2 views FINDINGS: Heart and mediastinum are normal. Lungs are clear. Diaphragm is normal. Bony thorax is norm al. IMPRESSION: Normal chest. No change.
[2022-11-23 17:02] LABS: INR 0.9 (<1.2); Partial Thromboplastin Time 25.3 sec (22.0-30.0); Prothrombin Time 10.1 sec (9.0-12.0)
[2022-11-23 17:11] LABS: ALT 34 U/L (4-34); AST 27 U/L (14-36); African American GFR (CKD) >90 (>60 ml/min/1.73 sqM); Albumin 3.9 g/dL (3.5-5.0); Alkaline Phosphatase 54 U/L (38-126); Anion Gap 6 mmol/L; Blood Urea Nitrogen 16 mg/dL (7-17); Calcium 9.2 mg/dL (8.4-10.2); Carbon Dioxide 27 mmol/L (22-30); Chloride 106 mmol/L (98-107); Glucose 99 mg/dL (74-99); Magnesium 1.9 mg/dL (1.6-2.3); Non-African American GFR(CKD) 87 (>60 ml/min/1.73 sqM); Potassium 4.6 mmol/L (3.5-5.1); Sodium 139 mmol/L (137-145); Total Bilirubin 0.3 mg/dL (0.2-1.3); Total Protein 6.9 g/dL (6.3-8.2)
[2022-11-23 17:51] VITALS: BP 151/85; RESP 18
== END 2022-11-23 18:20 | disposition home or self-care (01) ==
LOC: EC 16:06
DX: R07.89 Other chest pain (principal); J45.909 Unspecified asthma, uncomplicated; Z90.710 Acquired absence of both cervix and uterus; Z98.51 Tubal ligation status; Z91.040 Latex allergy status
CPT/HCPCS: 36415; 71046; 80053; 83735; 84484; 85025; 85610; 85730; 93005; 99285

== ENCOUNTER → 2022-12-10 | Outpatient (CLI) | payer BC ==
--- NOTE | 2022-12-10 14:53 | NM ---
EXAMINATION TYPE: NM stress cardiolite complete DATE OF EXAM: 12/10/2022 COMPARISON: NONE HISTORY: Hypercholesteremia and family history of heart disease presents with chest pain TECHNIQUE: After the intravenous administration of 10.3 mCi Tc 99m Sestamibi - Rest images obtained 45 minutes post injection. The patient exercised using a DANIEL protocol and 1 minute prior to peak exercise was injected with 25.1 mCi Tc 99m Sestamibi - Stress images obtained 15 minutes post injecti on. FINDINGS: Targeted heart rate was achieved during performance of the study. Review of stress and rest SPECT ashley ges demonstrates no distinct perfusion abnormality. Gated analysis shows normal wall motion with an estimated left ventricular ejection fraction of 69 %. IMPRESSION: No scintigraphic evidence for reversible ischemia
--- NOTE | 2022-12-10 16:29 | CA ---
Exercise Nuclear Stress Test Report Name: Huong Pandya Exam Date: 12/10/2022 10:03 Exam Location: [place] Stress Ht (in): 65 Wt (lb): 250 BSA: 2.17 Ordering Phys: Christelle Brink DO Referring Phys: Tatianna Erwin PAC Technologist: Daryl Brown Age: 42 Gender: F : 1980 Procedure CPT: Indications: I20.9 angina pectoris, R00.2 palp, E78.5 hyperlipi ICD-10 Codes: Patient History: Medications: Meds past 24 hrs: Pretest Chest Pain: STRESS TEST Modified Alexander Protocol Exercise Duration (min:sec): 08:[address] Depressions (mm): Angina Score: Stafford Score: Resting HR (bpm): 93 Peak HR (bpm): 160 Resting BP (mmHg): 110 / 76 Peak BP (mmHg): 205 / 46 MPHR: 176 Target HR: 150 % MPHR: 91 METS: 10.3 Total Dose: Peak Dose: Atropine: Double Product: 66072 BP Response: Stress Termination: Reached target heart rate Stress Symptoms: NO SYMPTOMS Stress Summary: ECG ANALYSIS Resting ECG: Stress ECG: CONCLUSIONS Excellent exercise tolerance Normal EKG in response to exercise Dr. Ted Andres MD (Electronically Signed) Final Date: 10 December 2022 16:28
== END ==
LOC: RADNMMAIN 08:03
PROVIDERS: ATTEND Family Medicine
DX: I20.9 Angina pectoris, unspecified (principal); E78.5 Hyperlipidemia, unspecified; R00.2 Palpitations
CPT/HCPCS: 93017; 78452; A9500

== ENCOUNTER → 2023-02-10 | Outpatient (CLI) | payer BC ==
--- NOTE | 2023-02-11 09:01 | MM ---
Reason for Exam: Screening (asymptomatic). Last mammogram was performed 1 year(s) and 3 month(s) ago. Patient History: Menarche at age 7. First Full-Term at age 23. Hysterectomy at age 36. Mother had breast cancer at or over age 50. Risk Values: Francesca 5 year model risk: 1.7%. NCI Lifetime model risk: 19.7%. Prior Study Comparison: 08/22/2019 Bilateral Screening Mammogram, [facility]. 10/15/2020 Bilateral Screening Mammogram, [facility]. 11/20/2021 Bilateral Screening Mammogram, [facility]. Tissue Density: The breast tissue is heterogeneously dense. This may lower the sensitivity of mammography. Findings: Analyzed By CAD. Pattern appears symmetrical and stable. No suspicious groups of microcalcifications, spiculated or lobular masses, architectural distortion or other secondary signs of malignancy are mammographically apparent. Overall Assessment: Negative, BI-RAD 1 Management: Screening Mammogram of both breasts in 1 year. A negative mammogram report should not preclude additional follow up of suspicious palpable abnormalities. Patient should continue monthly self breast exam. A clinical breast exam by your physician is recommended on an annual basis and results should be correlated with mammographic findings. Electronically signed and approved by: John Ruano D.O. Radiologis
== END | disposition home or self-care (01) ==
LOC: RADMAMWWP 09:20
PROVIDERS: ATTEND Obstetrics & Gynecology
DX: Z12.31 Encounter for screening mammogram for malignant neoplasm of breast (principal); Z80.3 Family history of malignant neoplasm of breast
CPT/HCPCS: 77063; 77067

== ENCOUNTER → 2023-02-10 | Outpatient (CLI) | payer BC ==
[~2023-02-10] MED LIST changes: -INFLIXIMAB-DYYB 600 MG in SODIUM CHLORIDE 0.9% 190 ML IV NR; +INFLIXIMAB-DYYB 600 MG in SODIUM CHLORIDE 0.9% 250 ML IV NR
== END ==
LOC: PROCWHC3 09:03
PROVIDERS: ATTEND Internal Medicine Gastroenterology
DX: Z53.9 Procedure and treatment not carried out, unspecified reason (principal)

== ENCOUNTER → 2023-02-18 | Outpatient (CLI) | payer BC ==
[2023-02-18 08:34] VITALS: RESP 16; TEMP 98
[2023-02-18 10:19] VITALS: BP 128/82; PULSE 76
== END ==
LOC: PROCWHC3 08:17
PROVIDERS: ATTEND Internal Medicine Gastroenterology
DX: K50.919 Crohn's disease, unspecified, with unspecified complications (principal); Z91.040 Latex allergy status
CPT/HCPCS: 96413; 96415

== ENCOUNTER → 2023-03-17 | Outpatient (CLI) | payer BC ==
[2023-03-17 17:04] LABS: EBV-EA (IgG) 0.2 AI; EBV-EBNA(IgG) >8.0 AI; EBV-VCA (IgG) >8.0 AI; EBV-VCA (IgM) >4.0 AI
[2023-03-18 06:23] LABS: Herpes simplex I and/or II IgM 1.39 INDEX (<=0.90); Herpes simplex IgG I Ab <0.01 (< or = 0.90); Herpes simplex IgG II Ab 0.04 (< or = 0.90)
== END | disposition home or self-care (01) ==
LOC: LABWHC1 10:25
PROVIDERS: ATTEND Family Medicine
DX: U09.9 Post COVID-19 condition, unspecified (principal)
CPT/HCPCS: 36415; 82306; 86644; 86645; 86663; 86664; 86665; 86694; 86695; 86696

== ENCOUNTER → 2023-04-07 | Outpatient (CLI) | payer BC ==
[~2023-04-07] MED LIST changes: +INFLIXIMAB-DYYB 600 MG in SODIUM CHLORIDE 0.9% 190 ML IV NR; -INFLIXIMAB-DYYB 600 MG in SODIUM CHLORIDE 0.9% 250 ML IV NR
[2023-04-07 09:17] VITALS: BP 114/79; PULSE 91; RESP 16; TEMP 98
== END ==
LOC: PROCWHC3 08:57
PROVIDERS: ATTEND Internal Medicine Gastroenterology
DX: Z53.9 Procedure and treatment not carried out, unspecified reason (principal)

== ENCOUNTER → 2023-04-28 | Outpatient (CLI) | payer BC ==
[2023-04-28 09:25] VITALS: RESP 16; TEMP 98.3
[2023-04-28 09:34] LABS: HGB 15.4 gm/dL (11.4-16.0); MCH 30.4 pg (25.0-35.0); MCHC 32.9 g/dL (31.0-37.0); MCV 92.3 fL (80.0-100.0); Mean Platelet Volume 8.1; Platelet Count 311 k/uL (150-450); RBC 5.09 m/uL (3.80-5.40); RDW 12.5 % (11.5-15.5); WBC 7.3 k/uL (3.8-10.6)
[2023-04-28 09:46] LABS: ALT 33 U/L (4-34); AST 30 U/L (14-36); African American GFR (CKD) >90 (>60 ml/min/1.73 sqM); Albumin 3.8 g/dL (3.5-5.0); Alkaline Phosphatase 65 U/L (38-126); Anion Gap 7 mmol/L; Blood Urea Nitrogen 5 mg/dL (7-17); Calcium 8.9 mg/dL (8.4-10.2); Carbon Dioxide 24 mmol/L (22-30); Chloride 108 mmol/L (98-107); Glucose 98 mg/dL (74-99); Non-African American GFR(CKD) >90 (>60 ml/min/1.73 sqM); Potassium 4.3 mmol/L (3.5-5.1); Sodium 139 mmol/L (137-145); Total Bilirubin 0.5 mg/dL (0.2-1.3)
[2023-04-28 10:59] VITALS: BP 121/77; PULSE 73
== END ==
LOC: PROCWHC3 08:55
PROVIDERS: ATTEND Internal Medicine Gastroenterology
DX: K50.90 Crohn's disease, unspecified, without complications (principal)
CPT/HCPCS: 80053; 85027; 96413; 96415; 36415; Q5103

== ENCOUNTER → 2023-06-16 | Outpatient (CLI) | payer BC ==
[2023-06-16 11:11] VITALS: RESP 16; TEMP 98.3
[2023-06-16 12:44] VITALS: BP 108/68; PULSE 70
== END ==
LOC: PROCWHC3 11:02
PROVIDERS: ATTEND Internal Medicine Gastroenterology
DX: K50.90 Crohn's disease, unspecified, without complications (principal)
CPT/HCPCS: 96413; 96415; Q5103

== ENCOUNTER → 2023-09-22 | Outpatient (CLI) | payer BC ==
[2023-09-22 09:44] VITALS: RESP 16; TEMP 97.8
[2023-09-22 11:28] VITALS: BP 123/81; PULSE 62
== END ==
LOC: PROCWHC3 09:10
PROVIDERS: ATTEND Internal Medicine Gastroenterology
DX: K50.90 Crohn's disease, unspecified, without complications (principal)
CPT/HCPCS: 96413; 96415; Q5103

== ENCOUNTER → 2023-11-17 | Outpatient (CLI) | payer BC ==
[2023-11-17 09:23] VITALS: RESP 16; TEMP 97.9
[2023-11-17 11:01] VITALS: BP 98/65; PULSE 72
== END ==
LOC: PROCWHC3 08:53
PROVIDERS: ATTEND Internal Medicine Gastroenterology
DX: K50.90 Crohn's disease, unspecified, without complications (principal)
CPT/HCPCS: 96413; 96415; Q5103

== ENCOUNTER → 2024-01-05 | Outpatient (CLI) | payer BC ==
[2024-01-05] MEDS: SODIUM CHLORIDE 0.9% 500 ML 500 ML in EMPTY BAG 1 BAG IV PRN (09:10)
[2024-01-05] MEDS: INFLIXIMAB-DYYB 600 MG in SODIUM CHLORIDE 0.9% 190 ML IV NR (09:15)
[2024-01-05 09:23] LABS: Basophils % (A) 0 %; Eosinophils # (A) 0.2 k/uL (0-0.7); Eosinophils % (A) 2 %; HCT 46.4 % (34.0-46.0); HGB 15.1 gm/dL (11.4-16.0); Lymphocytes # (A) 3.1 k/uL (1.0-4.8); Lymphocytes % (A) 35 %; MCH 29.5 pg (25.0-35.0); MCHC 32.5 g/dL (31.0-37.0); Mean Platelet Volume 8.3; Monocytes # (A) 0.4 k/uL (0-1.0); Monocytes % (A) 4 %; Neutrophils # (A) 5.1 k/uL (1.3-7.7); Neutrophils % (A) 57 %; Platelet Count 293 k/uL (150-450); RDW 12.9 % (11.5-15.5); WBC 8.9 k/uL (3.8-10.6)
[2024-01-05 09:37] LABS: ALT 30 U/L (4-34); AST 27 U/L (14-36); African American GFR (CKD) >90 (>60 ml/min/1.73 sqM); Albumin 3.9 g/dL (3.5-5.0); Alkaline Phosphatase 61 U/L (38-126); Anion Gap 6 mmol/L; Blood Urea Nitrogen 11 mg/dL (7-17); Calcium 9.2 mg/dL (8.4-10.2); Carbon Dioxide 23 mmol/L (22-30); Chloride 109 mmol/L (98-107); Glucose 124 mg/dL (74-99); Non-African American GFR(CKD) >90 (>60 ml/min/1.73 sqM); Potassium 4.2 mmol/L (3.5-5.1); Sodium 138 mmol/L (137-145); Total Bilirubin 0.4 mg/dL (0.2-1.3); Total Protein 6.9 g/dL (6.3-8.2)
[2024-01-05 10:17] VITALS: RESP 16; TEMP 98.2
[2024-01-05 10:48] VITALS: BP 118/76; PULSE 64
== END ==
LOC: PROCWHC3 08:49
PROVIDERS: ATTEND Internal Medicine Gastroenterology
DX: K50.90 Crohn's disease, unspecified, without complications (principal)
CPT/HCPCS: 80053; 85025; 96413; 96415; Q5103

== ENCOUNTER → 2024-02-23 | Outpatient (CLI) | payer BC ==
[2024-02-23] MEDS: SODIUM CHLORIDE 0.9% 500 ML 500 ML in EMPTY BAG 1 BAG IV PRN (09:43)
[2024-02-23] MEDS: INFLIXIMAB-DYYB 600 MG in SODIUM CHLORIDE 0.9% 250 ML IV NR (10:01)
[2024-02-23 10:10] VITALS: RESP 16; TEMP 97.8
[2024-02-23 10:57] VITALS: PULSE 76
[2024-02-23 11:44] VITALS: BP 111/65
== END ==
LOC: PROCWHC3 09:13
PROVIDERS: ATTEND Internal Medicine Gastroenterology
DX: K50.90 Crohn's disease, unspecified, without complications (principal)
CPT/HCPCS: 96413; 96415; Q5103

== ENCOUNTER → 2024-03-30 | Outpatient (CLI) | payer BC ==
--- NOTE | 2024-03-31 09:32 | NM ---
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 FINDINGS: There is normal distribution of activity throughout the gland. The 4 hour iodine uptake is calculated at 9.4% (normal range 8-14%). The 24-hour iodine uptake is calculated at 20.3% (normal ra nge 15-35%). IMPRESSION: Normal thyroid scan and uptake.
== END | disposition home or self-care (01) ==
LOC: RADNMMAIN 08:39
PROVIDERS: ATTEND Family Medicine
DX: E04.2 Nontoxic multinodular goiter (principal)
CPT/HCPCS: 78014; A9516

== ENCOUNTER → 2024-04-15 | Outpatient (CLI) | payer BC ==
[2024-04-15 07:53] VITALS: RESP 16; TEMP 98.6
[2024-04-15] MEDS: SODIUM CHLORIDE 0.9% 500 ML 500 ML in EMPTY BAG 1 BAG IV PRN (07:56)
[2024-04-15 08:07] LABS: MCH 29.3 pg (25.0-35.0); MCHC 31.8 g/dL (31.0-37.0); MCV 92.2 fL (80.0-100.0); Mean Platelet Volume 8.1; Platelet Count 305 k/uL (150-450); RDW 12.6 % (11.5-15.5); WBC 10.4 k/uL (3.8-10.6)
[2024-04-15] MEDS: INFLIXIMAB-DYYB 600 MG in SODIUM CHLORIDE 0.9% 190 ML IV NR (08:08)
[2024-04-15 08:41] LABS: ALT 23 U/L (4-34); AST 22 U/L (14-36); African American GFR (CKD) >90 (>60 ml/min/1.73 sqM); Albumin 3.9 g/dL (3.5-5.0); Alkaline Phosphatase 64 U/L (38-126); Anion Gap 6 mmol/L; Blood Urea Nitrogen 11 mg/dL (7-17); Calcium 9.3 mg/dL (8.4-10.2); Carbon Dioxide 22 mmol/L (22-30); Chloride 110 mmol/L (98-107); Glucose 131 mg/dL (74-99); Non-African American GFR(CKD) >90 (>60 ml/min/1.73 sqM); Sodium 138 mmol/L (137-145); Total Bilirubin 0.7 mg/dL (0.2-1.3); Total Protein 6.8 g/dL (6.3-8.2)
[2024-04-15 09:03] LABS: C Reactive Protein 0.9 mg/dL (<1.0)
[2024-04-15 09:17] VITALS: BP 111/74; PULSE 73
[2024-04-15 17:12] LABS: Erythrocyte Sedimentation Rate 27 mm/Hr (0-20)
== END ==
LOC: PROCWHC3 07:32
PROVIDERS: ATTEND Internal Medicine Gastroenterology
DX: K50.919 Crohn's disease, unspecified, with unspecified complications (principal)
CPT/HCPCS: 80053; 85652; 85027; 86140; 96413; 96415; Q5103

== ENCOUNTER → 2024-05-31 | Outpatient (CLI) | payer BC ==
[2024-05-31 09:07] VITALS: RESP 16; TEMP 98.2
[2024-05-31] MEDS: SODIUM CHLORIDE 0.9% 500 ML 500 ML in EMPTY BAG 1 BAG IV PRN (09:10)
[2024-05-31] MEDS: INFLIXIMAB-DYYB 600 MG in SODIUM CHLORIDE 0.9% 190 ML IV NR (09:37)
[2024-05-31 10:55] VITALS: BP 128/76; PULSE 75
== END ==
LOC: PROCWHC3 08:57
PROVIDERS: ATTEND Internal Medicine Gastroenterology
DX: K50.90 Crohn's disease, unspecified, without complications (principal)
CPT/HCPCS: 96413; 96415; Q5103

== ENCOUNTER → 2024-07-20 | Outpatient (CLI) | payer BC ==
[2024-07-20 08:11] VITALS: RESP 16; TEMP 98.2
[2024-07-20] MEDS: INFLIXIMAB-DYYB 600 MG in SODIUM CHLORIDE 0.9% 190 ML IV NR (09:04)
[2024-07-20] MEDS: SODIUM CHLORIDE 0.9% 500 ML 500 ML in EMPTY BAG 1 BAG IV PRN (09:05)
[2024-07-20 10:21] VITALS: BP 117/80; PULSE 83
== END ==
LOC: PROCWHC3 07:58
PROVIDERS: ATTEND Internal Medicine Gastroenterology
DX: K50.90 Crohn's disease, unspecified, without complications (principal)
CPT/HCPCS: 96413; 96415; Q5103

== ENCOUNTER → 2024-09-02 | Outpatient (CLI) | payer BC ==
[2024-09-02] MEDS: SODIUM CHLORIDE 0.9% 500 ML 500 ML in EMPTY BAG 1 BAG IV PRN (09:00)
[2024-09-02 09:05] VITALS: RESP 16; TEMP 97.9
[2024-09-02 09:27] LABS: HCT 46.8 % (34.0-46.0); HGB 15.2 gm/dL (11.4-16.0); MCHC 32.4 g/dL (31.0-37.0); MCV 92.4 fL (80.0-100.0); Mean Platelet Volume 8.4; Platelet Count 295 k/uL (150-450); RBC 5.06 m/uL (3.80-5.40); RDW 12.4 % (11.5-15.5); WBC 8.8 k/uL (3.8-10.6)
[2024-09-02] MEDS: INFLIXIMAB-DYYB 600 MG in SODIUM CHLORIDE 0.9% 250 ML IV NR (09:27)
[2024-09-02 10:35] VITALS: BP 123/84; PULSE 66
[2024-09-02 12:06] LABS: ALT 29 U/L (4-34); AST 30 U/L (14-36); African American GFR (CKD) >90 (>60 ml/min/1.73 sqM); Albumin 3.8 g/dL (3.5-5.0); Alkaline Phosphatase 56 U/L (38-126); Anion Gap 4 mmol/L; Blood Urea Nitrogen 11 mg/dL (7-17); C Reactive Protein 0.9 mg/dL (<1.0); Calcium 8.9 mg/dL (8.4-10.2); Carbon Dioxide 25 mmol/L (22-30); Chloride 110 mmol/L (98-107); Glucose 96 mg/dL (74-99); Non-African American GFR(CKD) >90 (>60 ml/min/1.73 sqM); Potassium 4.2 mmol/L (3.5-5.1); Sodium 139 mmol/L (137-145); Total Bilirubin 0.5 mg/dL (0.2-1.3); Total Protein 6.9 g/dL (6.3-8.2)
[2024-09-02 15:40] LABS: Erythrocyte Sedimentation Rate 18 mm/Hr (0-20)
== END ==
LOC: PROCWHC3 08:29
PROVIDERS: ATTEND Internal Medicine Gastroenterology
DX: K50.919 Crohn's disease, unspecified, with unspecified complications (principal)
CPT/HCPCS: 36415; 80053; 85027; 85652; 86140; 96413; 96415

== ENCOUNTER → 2024-10-05 | Outpatient (CLI) | payer BC ==
--- NOTE | 2024-10-05 19:00 | CT ---
EXAMINATION TYPE: CT sinus wo con DATE OF EXAM: 10/05/2024 5:46 PM COMPARISON: None. CLINICAL INDICATION: Female, 44 years old with history of J34.89 OTHER SPECIFIED DISORDERS OF NOSE; , ear infections TECHNIQUE: Multiple thin axial images were obtained through the paranasal sinuses without the use of IV contrast. Additional coronal and sagittal reformatted images were submitted for evaluation. Contrast used: none Oral contrast used: none CT DLP: 429 mGycm, Automated exposure control for dose reduction was used. FINDINGS: Frontal sinuses: Hypoplastic bilaterally. Frontal Recess: Clear Maxillary Sinuses: Normally developed minimal mucosal thickening. Maxillary Infundibula([facility]): Patent with mild mucosal thickening on the left which narrows the infundibulum., No Kaylin cells identified. Ethmoid sinuses: Normally developed and aerated. Ethmoidal notch: Unprotected bilateral anterior ethm oidal arteries. Sphenoid sinuses: Normally developed and aerated. There is sellar sphenoid sinus pneumatization witho ut evidence of dehiscence. No dehiscence of carotid canal. No evidence of optic nerve dehiscence wit hin the sphenoid sinus. No evidence of Onodi cells. Sphenoethmoidal recesses: Clear. Nasal septum: Within normal limits.. Nasal Turbinates: Mild mucosal thickening of the inferior nasal turbinates. A audie bullosa defect i s seen involving the left middle turbinate. Mastoid air cells & middle ears: The air cells are clear. The middle ears are grossly unremarkable. Modified Soft tissues & Brain: Partially seen without gross abnormality. Globes are intact. Other: Cribriform plate demonstrates symmetric Keros classification type 2 cribriform plate. No evidence of bony dehiscence of skull base. Lamina papyracea is intact without evidence of remote orbital fracture or orbital prolapse into the e thmoid sinus. IMPRESSION: 1. Minimal paranasal sinus disease. 2. The ostiomeatal units, frontonasal and sphenoethmoidal recesses are clear. [facility], , 10/05/2024 6:58 PM
== END | disposition home or self-care (01) ==
LOC: RADCTMAIN 17:22
PROVIDERS: ATTEND Family Medicine
DX: J34.89 Other specified disorders of nose and nasal sinuses (principal); Q30.8 Other congenital malformations of nose
CPT/HCPCS: 70486

== ENCOUNTER → 2024-10-25 | Outpatient (CLI) | payer BC ==
[~2024-10-25] MED LIST changes: -INFLIXIMAB-DYYB 600 MG in SODIUM CHLORIDE 0.9% 190 ML IV NR; +SODIUM CHLORIDE 0.9% 250 ML in EMPTY BAG 1 BAG IV PRN; -SODIUM CHLORIDE 0.9% 500 ML 500 ML in EMPTY BAG 1 BAG IV PRN
[2024-10-25 07:51] VITALS: RESP 16; TEMP 97.8
[2024-10-25] MEDS: SODIUM CHLORIDE 0.9% 500 ML 500 ML in EMPTY BAG 1 BAG IV PRN (07:51)
[2024-10-25] MEDS: INFLIXIMAB-DYYB 600 MG in SODIUM CHLORIDE 0.9% 250 ML IV NR (08:11)
[2024-10-25 09:22] VITALS: BP 112/72; PULSE 69
== END ==
LOC: PROCWHC3 07:21
PROVIDERS: ATTEND Internal Medicine Gastroenterology
DX: K50.90 Crohn's disease, unspecified, without complications (principal)
CPT/HCPCS: 96413; 96415; Q5103

== ENCOUNTER → 2024-12-26 | Outpatient (CLI) | payer BC ==
[2024-12-26 08:48] VITALS: RESP 16; TEMP 98
[2024-12-26] MEDS: SODIUM CHLORIDE 0.9% 500 ML 500 ML in EMPTY BAG 1 BAG IV PRN (08:50)
[2024-12-26 09:00] LABS: Basophils % (A) 1 %; Eosinophils # (A) 0.2 k/uL (0-0.7); Eosinophils % (A) 3 %; HCT 45.7 % (34.0-46.0); HGB 14.7 gm/dL (11.4-16.0); Lymphocytes % (A) 28 %; MCH 29.5 pg (25.0-35.0); MCHC 32.2 g/dL (31.0-37.0); MCV 91.8 fL (80.0-100.0); Mean Platelet Volume 7.5; Monocytes # (A) 0.4 k/uL (0-1.0); Monocytes % (A) 5 %; Neutrophils # (A) 4.4 k/uL (1.3-7.7); Neutrophils % (A) 61 %; Platelet Count 287 k/uL (150-450); RBC 4.98 m/uL (3.80-5.40); RDW 12.4 % (11.5-15.5); WBC 7.1 k/uL (3.8-10.6)
[2024-12-26] MEDS: INFLIXIMAB-DYYB 600 MG in SODIUM CHLORIDE 0.9% 190 ML IV NR (09:02)
[2024-12-26 09:20] LABS: AST 26 U/L (14-36); African American GFR (CKD) >90 (>60 ml/min/1.73 sqM); Albumin 3.8 g/dL (3.5-5.0); Anion Gap 9 mmol/L; Blood Urea Nitrogen 14 mg/dL (7-17); Calcium 9.4 mg/dL (8.4-10.2); Carbon Dioxide 26 mmol/L (22-30); Chloride 102 mmol/L (98-107); Glucose 134 mg/dL (74-99); Non-African American GFR(CKD) 86 (>60 ml/min/1.73 sqM); Potassium 3.8 mmol/L (3.5-5.1); Sodium 137 mmol/L (137-145); Total Bilirubin 0.5 mg/dL (0.2-1.3); Total Protein 6.8 g/dL (6.3-8.2)
[2024-12-26 09:21] LABS: ALT 27 U/L (4-34); Alkaline Phosphatase 55 U/L (38-126); C Reactive Protein 1.2 mg/dL (<1.0)
[2024-12-26 10:03] VITALS: BP 114/73; PULSE 73
[2024-12-26 19:06] LABS: Erythrocyte Sedimentation Rate 18 mm/Hr (0-20)
== END ==
LOC: PROCWHC3 08:25
PROVIDERS: ATTEND Internal Medicine Gastroenterology
DX: K50.919 Crohn's disease, unspecified, with unspecified complications (principal)
CPT/HCPCS: 80053; 85652; 85025; 86140; 96413; 96415; Q5103; 96365; 96366

== ENCOUNTER → 2025-01-25 | Outpatient (CLI) | payer BC ==
--- NOTE | 2025-01-25 14:47 | MM ---
Reason for Exam: Screening (asymptomatic). Last mammogram was performed 1 year(s) and 11 month(s) ago. Patient History: Menarche at age 7. First Full-Term at age 23. Hysterectomy at age 36. Mother had breast cancer at or over age 50. Risk Values: Francesca 5 year model risk: 1.8%. NCI Lifetime model risk: 19.3%. Prior Study Comparison: 10/15/2020 Bilateral Screening Mammogram, [facility]. 11/20/2021 Bilateral Screening Mammogram, [facility]. 02/10/2023 Bilateral MG 3D screening mammo w/cad, [facility]. Tissue Density: The breasts are heterogeneously dense, which may obscure small masses. Findings: Analyzed By CAD. Benign appearing bilateral axillary lymph nodes are redemonstrated. There is no suspicious group of microcalcifications or new suspicious mass in either breast. Overall Assessment: Negative, BI-RAD 1 Management: Screening Mammogram of both breasts in 1 year. . Patient should continue monthly self-breast exams. A clinical breast exam by your physician is recommended on an annual basis. This exam should not preclude additional follow-up of suspicious palpable abnormalities. Note on Francesca scores and lifetime risk: 1. A Francesca score greater than 3% is considered moderate risk. If this is the case, consider specialist referral to assess eligibility for a risk reducing agent. 2. If overall lifetime risk for the development of breast cancer is 20% or higher, the patient may qualify for future screening with alternating mammogram and breast MRI. [facility], , 01/25/2025 2:44 PM. Electronically signed and approved by: Trell Willingham M.D.
== END | disposition home or self-care (01) ==
LOC: RADMAMWWP 12:42
PROVIDERS: ATTEND Family Medicine
DX: Z12.31 Encounter for screening mammogram for malignant neoplasm of breast (principal); K11.7 Disturbances of salivary secretion; H04.129 Dry eye syndrome of unspecified lacrimal gland; R92.333 Mammographic heterogeneous density, bilateral breasts; Z80.3 Family history of malignant neoplasm of breast
CPT/HCPCS: 36415; 77063; 77067; 86038; 86235

== ENCOUNTER → 2025-05-30 | Outpatient (CLI) | payer BC ==
[2025-05-30 12:33] VITALS: RESP 16; TEMP 97.8
[2025-05-30] MEDS: SODIUM CHLORIDE 0.9% 500 ML 500 ML in EMPTY BAG 1 BAG IV PRN (12:34)
[2025-05-30] MEDS: INFLIXIMAB-DYYB 600 MG in SODIUM CHLORIDE 0.9% 190 ML IV NR (13:01)
[2025-05-30 14:05] VITALS: BP 125/85; PULSE 84
== END ==
LOC: PROCWHC3 12:16
PROVIDERS: ATTEND Internal Medicine Gastroenterology
DX: K50.90 Crohn's disease, unspecified, without complications (principal)
CPT/HCPCS: 96413; 96415; Q5103